=== PATIENT | male | born 1970 | race Caucasian/White ===

== ENCOUNTER 2022-06-19 16:17 | Inpatient (IN) | payer MEDICARE ==
[~2022-06-19 16:17] MED LIST: Iopamidol-370 76% 500 ML 1 ML ONE
[2022-06-19] MEDS ORDERED: Nitroglycerin 2% Ointment 1 INCH/1 GM Packet ONE (16:44)
[2022-06-19] MEDS ORDERED: Morphine 4 MG/ML VIAL ONE (16:44)
[2022-06-19 16:53] LABS: #Basophils 0.1 thou/uL (0.0-0.2); #Lymphocytes 0.5 thou/uL (1.20-3.40); #Monocytes 0.9 thou/uL (0.11-0.59); #Neutrophils 10.1 thou/uL (1.40-6.50); %Basophils 0.4 % (0.0-1.0); %Eosinophils 0.3 % (0.0-10.0); %Lymphocytes 4.6 % (21.0-51.0); %Monocytes 8.1 % (0.0-10.0); %Neutrophils 86.6 % (42.0-75.0); Hemoglobin 15.6 g/dL (14.0-18.0); Mean Corpuscular HGB CONC 33.9 g/dL (32.0-36.0); Mean Corpuscular Hemoglobin 31.8 pg (27.0-31.0); Mean Corpuscular Volume 93.8 fL (78.0-98.0); Mean Platelet Volume 9.9 fL (7.4-10.4); Platelet Count 182 thou/uL (130-400); RBC Distribution Width 12.3 % (11.5-14.5); Red Blood Cell (RBC) Count 4.91 mill/uL (4.70-6.10); White Blood Cell (WBC) Count 11.6 thou/uL (4.8-10.8)
[2022-06-19 17:01] LABS: PTT 56.6 sec (22.9-36.1); Prothrombin Time 12.8 sec (12.0-14.7)
[2022-06-19 17:26] LABS: ALT (SGPT) 11 U/L (8-55); AST (SGOT) 12 U/L (5-34); Alkaline Phosphatase 62 U/L (40-110); Anion Gap 13 mmol/L (10-20); BUN (Urea Nitrogen) 18 mg/dL (8.4-25.7); Bilirubin, Total 0.6 mg/dL (0.2-1.2); Calc. Creatinine Clearance 0 mL/min (70-130); Calcium 9.4 mg/dL (7.8-10.44); Carbon Dioxide 26 mmol/L (22-29); Chloride 99 mmol/L (98-107); Estimated GFR 74; Globulin 3.2 g/dL (2.4-3.5); Glucose 142 mg/dL (70-105); Lipase 9 U/L (8-78); Potassium 4.2 mmol/L (3.5-5.1); Protein, Total 7.2 g/dL (6.0-8.3); Sodium 134 mmol/L (136-145)
[2022-06-19] MEDS ORDERED: Ketorolac Tromethamine 30 MG/ML VIAL ONE (18:03)
[2022-06-19] MEDS ORDERED: Ondansetron PF 4 MG/2 ML Vial IVP PRN (19:05)
[2022-06-19] MEDS ORDERED: Ondansetron ODT 4 MG TAB PO PRN (19:05)
[2022-06-19] MEDS ORDERED: Nitroglycerin 0.4 MG TAB (25 Tab Bottle) SL PRN (19:08)
[2022-06-19 19:52] LABS: Troponin I 0.051 ng/mL (< 0.028)
[2022-06-19] MEDS ORDERED: Aspirin 325 mg Enteric Coated Tablet PO SCH (21:00)
[2022-06-19] MEDS ORDERED: cefTRIAXone\\ROCEPHIN 1 GM in Sodium Chloride 0.9% 100 ML IVPB SCH (21:00)
[2022-06-19] MEDS: Acetaminophen 325 MG TAB PO PRN (21:49)
[2022-06-19 22:13] VITALS: BMI 45.0
[2022-06-20 00:11] LABS: Troponin I 0.031 ng/mL (< 0.028)
[2022-06-20] MEDS: Ketorolac Tromethamine 30 MG/ML VIAL IVP PRN ×3 (04:48→20:57)
[2022-06-20] MEDS: Acetaminophen 325 MG TAB PO PRN ×3 (04:49→20:58)
[2022-06-20] MEDS ORDERED: Regadenoson 0.4 MG/5 ML SYRINGE ONE (09:45)
[2022-06-20] MEDS ORDERED: Piperacillin/Tazobactam 3.375 GM in Sodium Chloride 0.9% 100 ML IVPB SCH (10:00)
[2022-06-20] MEDS: Enoxaparin Sodium 40 MG/0.4 ML SYRINGE SC SCH (10:29)
[2022-06-20] MEDS: Piperacillin/Tazobactam 3.375 GM in Sodium Chloride 0.9% 100 ML IVPB SCH ×2 (14:35→20:59)
[2022-06-21] MEDS: Ketorolac Tromethamine 30 MG/ML VIAL IVP PRN (05:51)
[2022-06-21] MEDS: Piperacillin/Tazobactam 3.375 GM in Sodium Chloride 0.9% 100 ML IVPB SCH (05:52)
[2022-06-21 06:57] LABS: #Eosinphils 0.1 thou/uL (0.0-0.7); #Lymphocytes 1.3 thou/uL (1.20-3.40); #Monocytes 0.5 thou/uL (0.11-0.59); #Neutrophils 4.6 thou/uL (1.40-6.50); %Basophils 0.3 % (0.0-1.0); %Eosinophils 1.8 % (0.0-10.0); %Lymphocytes 19.1 % (21.0-51.0); %Monocytes 7.9 % (0.0-10.0); %Neutrophils 70.8 % (42.0-75.0); Hemoglobin 13.6 g/dL (14.0-18.0); Mean Corpuscular HGB CONC 32.4 g/dL (32.0-36.0); Mean Corpuscular Volume 95.8 fL (78.0-98.0); Mean Platelet Volume 9.4 fL (7.4-10.4); Platelet Count 161 thou/uL (130-400); RBC Distribution Width 12.2 % (11.5-14.5); White Blood Cell (WBC) Count 6.5 thou/uL (4.8-10.8)
[2022-06-21 07:17] LABS: Anion Gap 11 mmol/L (10-20); BUN (Urea Nitrogen) 17 mg/dL (8.4-25.7); Calc. Creatinine Clearance 163 mL/min (70-130); Calcium 8.7 mg/dL (7.8-10.44); Carbon Dioxide 25 mmol/L (22-29); Chloride 105 mmol/L (98-107); Estimated GFR 92; Glucose 95 mg/dL (70-105); Potassium 4.1 mmol/L (3.5-5.1); Sodium 137 mmol/L (136-145)
[2022-06-21] MEDS: Enoxaparin Sodium 40 MG/0.4 ML SYRINGE SC SCH (08:37)
[2022-06-21 11:42] VITALS: BP 171/97; TEMP 98.5
== END 2022-06-21 12:39 | disposition home or self-care (01) | DRG 603 ==
LOC: ERS 16:17 → 2SW 18:36 → OBSVTOIN 06-20 08:40
PROVIDERS: ADMIT Hospitalist; ATTEND Hospitalist
DX: L03.116 Cellulitis of left lower limb (principal); Z68.42 Body mass index [BMI] 45.0-49.9, adult; R07.9 Chest pain, unspecified; Z20.822 Contact with and (suspected) exposure to COVID-19; K21.9 Gastro-esophageal reflux disease without esophagitis; Z96.651 Presence of right artificial knee joint; F17.210 Nicotine dependence, cigarettes, uncomplicated; I87.2 Venous insufficiency (chronic) (peripheral); E66.01 Morbid (severe) obesity due to excess calories; I25.10 Atherosclerotic heart disease of native coronary artery without angina pectoris; J44.9 Chronic obstructive pulmonary disease, unspecified; G62.9 Polyneuropathy, unspecified; I25.2 Old myocardial infarction; Z79.899 Other long term (current) drug therapy
CPT/HCPCS: 36415; 71045; 71275; 74174; 78452; 80048; 80053; 83690; 83880; 84484; 85025; 85379; 85610; 85730; 93005; 93017; 93306; 93970; 94760; 96374; 96375; A9500; G0378; J0696; J1650; J1885; J2270; J2543; J2785; J3490; Q9967; U0003; U0005

== ENCOUNTER 2023-04-25 13:20 | Observation (INO) | payer MEDICARE, MEDICAID ==
[2023-04-25 14:20] LABS: #Eosinphils 0.1 thou/uL (0.0-0.7); #Monocytes 0.4 thou/uL (0.11-0.59); #Neutrophils 6.5 thou/uL (1.40-6.50); %Basophils 0.5 % (0.0-1.0); %Eosinophils 1.1 % (0.0-10.0); %Lymphocytes 12.2 % (21.0-51.0); %Monocytes 5.2 % (0.0-10.0); %Neutrophils 80.5 % (42.0-75.0); Hemoglobin 15.7 g/dL (14.0-18.0); Mean Corpuscular HGB CONC 33.5 g/dL (32.0-36.0); Mean Corpuscular Hemoglobin 30.9 pg (27.0-31.0); Mean Corpuscular Volume 92.3 fl (78.0-98.0); Platelet Count 194 10x3/uL (130-400); RBC Distribution Width 13.6 % (11.5-14.5); Red Blood Cell (RBC) Count 5.08 mill/uL (4.70-6.10); White Blood Cell (WBC) Count 8.1 10x3/uL (4.8-10.8)
[2023-04-25 14:48] LABS: ALT (SGPT) 14 U/L (8-55); AST (SGOT) 14 U/L (5-34); Albumin 4.1 g/dL (3.5-5.0); Alkaline Phosphatase 60 U/L (40-110); Anion Gap 12 mmol/L (10-20); BUN (Urea Nitrogen) 17 mg/dL (8.4-25.7); Bilirubin, Total 0.4 mg/dL (0.2-1.2); Calc. Creatinine Clearance 0 mL/min (70-130); Calcium 9.3 mg/dL (7.8-10.44); Carbon Dioxide 24 mmol/L (22-29); Chloride 103 mmol/L (98-107); Estimated GFR 85; Globulin 2.7 g/dL (2.4-3.5); Glucose 118 mg/dL (70-105); Potassium 4.5 mmol/L (3.5-5.1); Protein, Total 6.8 g/dL (6.0-8.3); Sodium 134 mmol/L (136-145)
[2023-04-25 15:09] LABS: CKMB 4.4 ng/mL (0-6.6)
[2023-04-25] MEDS ORDERED: Albuterol 2.5 MG/0.5 ML NEB ONE (17:41)
[2023-04-25] MEDS ORDERED: Ipratropium/Albuterol 3 ML NEB ONE (17:44)
[2023-04-25 18:07] LABS: CKMB 4.1 ng/mL (0-6.6)
[2023-04-25] MEDS ORDERED: Aspirin Chewable 81 MG TAB ONE (18:25)
[2023-04-25] MEDS ORDERED: methylPREDNISolone Sod Succ/PF 125 MG/2 ML VIAL ONE (18:25)
[2023-04-25] MEDS ORDERED: cefTRIAXone (ROCEPHIN) 2 GM VIAL ONE (18:25)
[2023-04-25] MEDS ORDERED: Ondansetron PF 4 MG/2 ML Vial IVP PRN (19:15)
[2023-04-25] MEDS ORDERED: Ondansetron ODT 4 MG TAB PO PRN (19:15)
[2023-04-25] MEDS ORDERED: Labetalol HCl 100 MG/20 ML VIAL SLOW IVP SCH (19:30)
[2023-04-25] MEDS ORDERED: Azithromycin 500 MG VIAL ONE (19:33)
[2023-04-25] MEDS ORDERED: Nitroglycerin 2% Ointment 1 INCH/1 GM Packet TOP SCH (20:30)
[2023-04-25 20:32] LABS: Hemoglobin A1c 5.3 % (4.0-6.0)
[2023-04-25] MEDS ORDERED: Nitroglycerin 0.4 MG TAB (25 Tab Bottle) SL PRN (20:35)
[2023-04-25 20:42] VITALS: BMI 54.8
[2023-04-25 20:45] LABS: Troponin I 0.047 ng/mL (< 0.028)
[2023-04-25] MEDS: Azithromycin 500 MG in Sodium Chloride 0.9% 250 ML 250 ML IVPB SCH (21:03)
[2023-04-25] MEDS: Famotidine 20 MG TAB PO SCH (21:03)
[2023-04-25] MEDS: Acetaminophen 325 MG TAB PO PRN (21:03)
[2023-04-25] MEDS: guaiFENesin/DM ER PO SCH (21:03)
[2023-04-25] MEDS: Nitroglycerin 2% Ointment 1 INCH/1 GM Packet TOP SCH (21:04)
[2023-04-25] MEDS ORDERED: Nicotine 14 MG PATCH TD SCH (21:30)
[2023-04-25] MEDS ORDERED: Ipratropium/Albuterol 3 ML NEB NEB SCH (21:30)
[2023-04-25] MEDS: methylPREDNISolone Sod Succ 40 MG VIAL IVP SCH (23:33)
[2023-04-26] MEDS ORDERED: cloNIDine 0.1 MG TAB PO PRN (00:21)
[2023-04-26] MEDS ORDERED: Ketorolac Tromethamine 30 MG/ML VIAL IVP SCH (03:30)
[2023-04-26 04:51] LABS: #Monocytes 0.1 thou/uL (0.11-0.59); #Neutrophils 6.3 thou/uL (1.40-6.50); %Basophils 0.1 % (0.0-1.0); %Eosinophils 0.1 % (0.0-10.0); %Lymphocytes 6.4 % (21.0-51.0); %Monocytes 1.2 % (0.0-10.0); %Neutrophils 91.5 % (42.0-75.0); Hemoglobin 15.1 g/dL (14.0-18.0); Mean Corpuscular HGB CONC 32.5 g/dL (32.0-36.0); Mean Corpuscular Hemoglobin 30.6 pg (27.0-31.0); Mean Corpuscular Volume 94.3 fl (78.0-98.0); Mean Platelet Volume 12.1 fL (7.4-10.4); Platelet Count 205 10x3/uL (130-400); RBC Distribution Width 13.6 % (11.5-14.5); Red Blood Cell (RBC) Count 4.93 mill/uL (4.70-6.10); White Blood Cell (WBC) Count 6.9 10x3/uL (4.8-10.8)
[2023-04-26 05:09] LABS: Anion Gap 13 mmol/L (10-20); BUN (Urea Nitrogen) 17 mg/dL (8.4-25.7); Calc. Creatinine Clearance 219 mL/min (70-130); Calcium 9.2 mg/dL (7.8-10.44); Carbon Dioxide 20 mmol/L (22-29); Cardiac Risk 3.9 (Less than 4.5); Chloride 105 mmol/L (98-107); Cholesterol 231 mg/dl (< 200 Desired); Estimated GFR 104; Glucose 148 mg/dL (70-105); HDL Cholesterol 59 mg/dL (>60 Neg Risk); LDL Cholesterol, Calculated 160 mg/dL; Magnesium 2.2 mg/dL (1.6-2.6); Potassium 4.7 mmol/L (3.5-5.1); Sodium 133 mmol/L (136-145); Triglycerides 60 mg/dL (Less than 150)
[2023-04-26 05:21] LABS: Troponin I 0.038 ng/mL (< 0.028)
[2023-04-26] MEDS: Nitroglycerin 2% Ointment 1 INCH/1 GM Packet TOP SCH ×4 (05:25→21:08)
[2023-04-26] MEDS: methylPREDNISolone Sod Succ 40 MG VIAL IVP SCH ×4 (05:25→23:16)
[2023-04-26] MEDS: Acetaminophen 325 MG TAB PO PRN ×4 (05:28→21:04)
[2023-04-26] MEDS: Ipratropium/Albuterol 3 ML NEB NEB SCH ×4 (08:07→18:44)
[2023-04-26] MEDS: Famotidine 20 MG TAB PO SCH (08:25)
[2023-04-26] MEDS: guaiFENesin/DM ER PO SCH ×2 (08:25→21:08)
[2023-04-26] MEDS: Aspirin Chewable 81 MG TAB PO SCH (08:25)
[2023-04-26] MEDS ORDERED: Ipratropium/Albuterol 3 ML NEB NEB PRN (14:25)
[2023-04-26] MEDS ORDERED: Amlodipine 5 MG TAB PO SCH (14:45)
[2023-04-26] MEDS: Diclofenac 1% 100 GM GEL TP SCH ×2 (15:20→21:09)
[2023-04-26 16:29] LABS: SARS-CoV-2 NAA Rapid Test Not Detected (NotDetected)
[2023-04-26] MEDS: Ketorolac Tromethamine 30 MG/ML VIAL IVP SCH ×2 (17:43→23:13)
[2023-04-26] MEDS: Mometasone 100 MCG/Formoterol 5 MCG 120 PUFF INHALER INH SCH (18:46)
[2023-04-26] MEDS: Azithromycin 500 MG in Sodium Chloride 0.9% 250 ML 250 ML IVPB SCH (21:07)
[2023-04-27] MEDS ORDERED: Labetalol HCl 100 MG/20 ML VIAL SLOW IVP SCH (00:30)
[2023-04-27] MEDS: Acetaminophen 325 MG TAB PO PRN (03:43)
[2023-04-27 05:29] LABS: Anion Gap 14 mmol/L (10-20); BUN (Urea Nitrogen) 26 mg/dL (8.4-25.7); Calc. Creatinine Clearance 180 mL/min (70-130); Calcium 9.3 mg/dL (7.8-10.44); Carbon Dioxide 22 mmol/L (22-29); Chloride 103 mmol/L (98-107); Estimated GFR 86; Glucose 216 mg/dL (70-105); Potassium 4.5 mmol/L (3.5-5.1); Sodium 134 mmol/L (136-145)
[2023-04-27] MEDS: methylPREDNISolone Sod Succ 40 MG VIAL IVP SCH ×2 (05:36→11:25)
[2023-04-27] MEDS: Mometasone 100 MCG/Formoterol 5 MCG 120 PUFF INHALER INH SCH (07:39)
[2023-04-27] MEDS ORDERED: hydrALAZINE 20 MG/ML VIAL SLOW IVP PRN (07:53)
[2023-04-27] MEDS: guaiFENesin/DM ER PO SCH (08:49)
[2023-04-27] MEDS: Aspirin Chewable 81 MG TAB PO SCH (08:49)
[2023-04-27] MEDS: Diclofenac 1% 100 GM GEL TP SCH ×2 (08:50→14:31)
[2023-04-27] MEDS ORDERED: Nicotine 21 MG PATCH TD SCH (08:52)
[2023-04-27] MEDS ORDERED: Valsartan 80 MG TAB PO SCH (09:00)
[2023-04-27] MEDS ORDERED: Nicotine 14 MG PATCH TD SCH (09:00)
[2023-04-27] MEDS ORDERED: Amlodipine 5 MG TAB PO SCH (09:00)
[2023-04-27] MEDS ORDERED: Acetaminophen 500 MG TAB PO PRN ×2 (09:50)
[2023-04-27] MEDS ORDERED: diphenhydrAMINE 25 MG CAP PO PRN (09:50)
[2023-04-27] MEDS ORDERED: Moisturizing Cream (Eucerin) 113 GM JAR TOP PRN (09:50)
[2023-04-27] MEDS ORDERED: Glucagon 1 MG/ML KIT IM PRN (09:50)
[2023-04-27] MEDS ORDERED: Sodium Chloride 0.65% Nasal 44 ML BOT EA NARE PRN (09:50)
[2023-04-27] MEDS ORDERED: Dextrose 5% in Water 1,000 ML IV PRN (09:50)
[2023-04-27] MEDS ORDERED: Dextrose 50% Abboject 50 ML SYRINGE SLOW IVP PRN (09:50)
[2023-04-27] MEDS ORDERED: HumaLOG 300 UNITS/3 ML VIAL SC PRN ×2 (09:50)
[2023-04-27] MEDS ORDERED: Senokot S 8.6-50 MG TAB PO PRN (09:50)
[2023-04-27 11:22] VITALS: TEMP 97.9
[2023-04-27] MEDS ORDERED: hydrALAZINE 25 MG TAB PO SCH (14:15)
[2023-04-27 15:30] VITALS: BP 172/92
== END 2023-04-27 15:58 | disposition home or self-care (01) ==
LOC: ERS 13:20 → 2NO 18:47
PROVIDERS: ADMIT Internal Medicine; ATTEND Family Medicine
DX: R07.81 Pleurodynia (principal); R77.8 Other specified abnormalities of plasma proteins; J44.1 Chronic obstructive pulmonary disease with (acute) exacerbation; I10 Essential (primary) hypertension; I16.0 Hypertensive urgency; J96.01 Acute respiratory failure with hypoxia; I25.10 Atherosclerotic heart disease of native coronary artery without angina pectoris; I25.2 Old myocardial infarction; F41.8 Other specified anxiety disorders; F17.210 Nicotine dependence, cigarettes, uncomplicated; E66.01 Morbid (severe) obesity due to excess calories; Z68.43 Body mass index [BMI] 50.0-59.9, adult; Z96.651 Presence of right artificial knee joint; Z79.82 Long term (current) use of aspirin; Z79.899 Other long term (current) drug therapy
CPT/HCPCS: 0241U; 71045; 80048 ×2; 80053; 80061; 82553; 82962; 83036; 83735; 83880; 84443; 84484 ×3; 85025 ×2; 93005 ×2; 93306; 94640 ×5; 94664; 94760; 96365; 96367; 96375; 99285; J0456 ×2; 36415; 36416; 93010; 96372; 96376; G0378; J0696; J1650; J1885; J2920; J2930; J7050; J7611; J7620

== ENCOUNTER 2023-05-24 19:09 | Observation (INO) | payer OTHER, MEDICAID ==
[2023-05-24 21:38] LABS: #Eosinphils 0.2 thou/uL (0.0-0.7); #Monocytes 0.5 thou/uL (0.11-0.59); #Neutrophils 5.5 thou/uL (1.40-6.50); %Basophils 0.4 % (0.0-1.0); %Eosinophils 2.1 % (0.0-10.0); %Lymphocytes 17.5 % (21.0-51.0); %Monocytes 7.1 % (0.0-10.0); %Neutrophils 71.9 % (42.0-75.0); Hemoglobin 14.5 g/dL (14.0-18.0); Mean Corpuscular HGB CONC 32.4 g/dL (32.0-36.0); Mean Corpuscular Hemoglobin 31.6 pg (27.0-31.0); Mean Corpuscular Volume 97.4 fl (78.0-98.0); Mean Platelet Volume 11.9 fL (7.4-10.4); Platelet Count 168 10x3/uL (130-400); RBC Distribution Width 14.3 % (11.5-14.5); Red Blood Cell (RBC) Count 4.59 mill/uL (4.70-6.10); White Blood Cell (WBC) Count 7.6 10x3/uL (4.8-10.8)
[2023-05-24 21:51] LABS: INR-International Normal Ratio 0.8; PTT 35.2 sec (22.9-36.1); Prothrombin Time 11.3 sec (12.0-14.7)
[2023-05-24 21:56] LABS: Acetaminophen Less than 10 mcg/mL (10.0-30.0); Alcohol Less than 10.0 mg/dL (Less than 10); Lipase 44 U/L (8-78); Magnesium 2.2 mg/dL (1.6-2.6); Salicylate Less than 8.0 mg/dL (15.0-30.0)
[2023-05-24 22:02] LABS: ALT (SGPT) 35 U/L (8-55); AST (SGOT) 22 U/L (5-34); Albumin 4.1 g/dL (3.5-5.0); Alkaline Phosphatase 76 U/L (40-110); Anion Gap 14 mmol/L (10-20); BUN (Urea Nitrogen) 19 mg/dL (8.4-25.7); Bilirubin, Total 0.2 mg/dL (0.2-1.2); Calc. Creatinine Clearance 0 mL/min (70-130); Calcium 9.9 mg/dL (7.8-10.44); Carbon Dioxide 27 mmol/L (22-29); Chloride 101 mmol/L (98-107); Estimated GFR 92; Globulin 2.7 g/dL (2.4-3.5); Glucose 120 mg/dL (70-105); Potassium 4.3 mmol/L (3.5-5.1); Protein, Total 6.8 g/dL (6.0-8.3); Sodium 138 mmol/L (136-145)
[2023-05-24 22:17] LABS: CKMB 2.7 ng/mL (0-6.6)
[2023-05-24] MEDS ORDERED: Morphine 4 MG/ML VIAL ONE (22:21)
[2023-05-24 22:32] LABS: Bacteria/HPF None Seen HPF (None Seen); Bilirubin Negative (Negative); Blood, Urine Negative (Negative); CAUTI Indications for Culture Dysuria,urgency,freq; Clarity Clear (Clear); Glucose, Urine (Dipstick) Normal (Negative); Ketone, Urine Negative (Negative); Leukocyte Negative Leu/uL (Negative); Nitrite Negative (Negative); Protein, Urine (Dipstick) Negative (Neg-Trace); RBC/HPF 0-3 HPF (0-3); Renal Epithelial 0-3 HPF (None Seen); Specific Gravity, Urine 1.021 (1.002-1.036); Squamous Epithelial 0-3 HPF (0-3); Urobilinogen Normal mg/dL (Less than 2); WBC/HPF 0-3 HPF (0-3); pH, Urine 6.5 (5.0-9.0)
[2023-05-24 22:35] LABS: Cocaine Metabolite Screen Not Detected (NotDetected); Methamphetamine Not Detected (NotDetected); Opiate Screen Not Detected (NotDetected); Phencyclidine (PCP) Not Detected (NotDetected); THC/Cannabinoid Screen Not Detected (NotDetected)
[2023-05-24 22:36] LABS: Amphetamine Not Detected (NotDetected); Barbiturates Screen Not Detected (NotDetected); Benzodiazepine Screen Not Detected (NotDetected); Methadone Not Detected (NotDetected); Oxycodone Screen Not Detected (NotDetected); Tricyclic Screen Not Detected (NotDetected)
[2023-05-24 22:42] LABS: Urine Culture Reflex No No
[2023-05-24] MEDS ORDERED: Ipratropium/Albuterol 3 ML NEB EZPAP PRN (23:25)
[2023-05-24] MEDS ORDERED: Ondansetron PF 4 MG/2 ML Vial IVP PRN (23:45)
[2023-05-25 00:45] VITALS: BMI 52.4
[2023-05-25 01:09] LABS: Troponin I 0.034 ng/mL (< 0.028)
[2023-05-25] MEDS ORDERED: Ipratropium/Albuterol 3 ML NEB ONE ×2 (02:28→11:58)
[2023-05-25] MEDS: Ipratropium/Albuterol 3 ML NEB NEB SCH ×5 (02:31→23:09)
[2023-05-25 03:59] LABS: #Eosinphils 0.2 thou/uL (0.0-0.7); #Monocytes 0.6 thou/uL (0.11-0.59); #Neutrophils 4.9 thou/uL (1.40-6.50); %Basophils 0.4 % (0.0-1.0); %Lymphocytes 21.8 % (21.0-51.0); %Monocytes 7.9 % (0.0-10.0); %Neutrophils 66.6 % (42.0-75.0); Hemoglobin 14.8 g/dL (14.0-18.0); Mean Corpuscular Hemoglobin 30.8 pg (27.0-31.0); Mean Corpuscular Volume 96.5 fl (78.0-98.0); Mean Platelet Volume 11.4 fL (7.4-10.4); Platelet Count 167 10x3/uL (130-400); RBC Distribution Width 14.2 % (11.5-14.5); White Blood Cell (WBC) Count 7.4 10x3/uL (4.8-10.8)
[2023-05-25 04:23] LABS: Anion Gap 15 mmol/L (10-20); BUN (Urea Nitrogen) 17 mg/dL (8.4-25.7); Calc. Creatinine Clearance 211 mL/min (70-130); Calcium 9.7 mg/dL (7.8-10.44); Carbon Dioxide 24 mmol/L (22-29); Chloride 103 mmol/L (98-107); Estimated GFR 103; Glucose 123 mg/dL (70-105); Potassium 4.1 mmol/L (3.5-5.1); Sodium 138 mmol/L (136-145)
[2023-05-25 04:27] LABS: Troponin I 0.032 ng/mL (< 0.028)
[2023-05-25] MEDS ORDERED: Acetaminophen 325 MG TAB ONE (04:41)
[2023-05-25] MEDS: Acetaminophen 325 MG TAB PO PRN (04:43)
[2023-05-25] MEDS ORDERED: levETIRAcetam in NS 500 MG in Premix Bag 1 BAG IVPB SCH (09:00)
[2023-05-25] MEDS ORDERED: levETIRAcetam 500 MG/5 ML VIAL ONE (09:11)
[2023-05-25] MEDS: levETIRAcetam 500 MG/5 ML VIAL SLOW IVP SCH ×2 (09:22→21:07)
[2023-05-25] MEDS ORDERED: Acetaminophen/Codeine 30-300mg Tablet ONE (10:51)
[2023-05-25] MEDS: Acetaminophen/Codeine 30-300mg Tablet PO PRN ×2 (10:54→19:37)
[2023-05-25] MEDS: hydrALAZINE 25 MG TAB PO SCH ×2 (14:56→21:22)
[2023-05-26] MEDS: Acetaminophen/Codeine 30-300mg Tablet PO PRN ×3 (00:02→09:54)
[2023-05-26] MEDS: Acetaminophen 325 MG TAB PO PRN (00:05)
[2023-05-26 06:30] LABS: #Eosinphils 0.1 thou/uL (0.0-0.7); #Monocytes 0.6 thou/uL (0.11-0.59); #Neutrophils 4.6 thou/uL (1.40-6.50); %Basophils 0.5 % (0.0-1.0); %Lymphocytes 19.2 % (21.0-51.0); %Monocytes 8.7 % (0.0-10.0); %Neutrophils 68.5 % (42.0-75.0); Hemoglobin 14.5 g/dL (14.0-18.0); Mean Corpuscular HGB CONC 31.7 g/dL (32.0-36.0); Mean Corpuscular Hemoglobin 31.2 pg (27.0-31.0); Mean Corpuscular Volume 98.5 fl (78.0-98.0); Mean Platelet Volume 11.4 fL (7.4-10.4); Platelet Count 162 10x3/uL (130-400); RBC Distribution Width 14.4 % (11.5-14.5); Red Blood Cell (RBC) Count 4.65 mill/uL (4.70-6.10); White Blood Cell (WBC) Count 6.7 10x3/uL (4.8-10.8)
[2023-05-26 06:57] LABS: Anion Gap 17 mmol/L (10-20); BUN (Urea Nitrogen) 17 mg/dL (8.4-25.7); Calc. Creatinine Clearance 179 mL/min (70-130); Calcium 8.9 mg/dL (7.8-10.44); Carbon Dioxide 24 mmol/L (22-29); Chloride 102 mmol/L (98-107); Estimated GFR 86; Glucose 129 mg/dL (70-105); Potassium 4.6 mmol/L (3.5-5.1); Sodium 138 mmol/L (136-145)
[2023-05-26] MEDS: Ipratropium/Albuterol 3 ML NEB NEB SCH ×2 (07:46→13:33)
[2023-05-26] MEDS ORDERED: Valsartan 80 MG TAB PO SCH (09:00)
[2023-05-26] MEDS ORDERED: Non-Formulary Item 1 EACH (Tiotropium Bromide 4 GM Inhaler) IH SCH (09:00)
[2023-05-26] MEDS ORDERED: Amlodipine 5 MG TAB PO SCH (09:00)
[2023-05-26] MEDS: hydrALAZINE 25 MG TAB PO SCH ×2 (09:53→15:31)
[2023-05-26] MEDS: levETIRAcetam 500 MG/5 ML VIAL SLOW IVP SCH (09:54)
[2023-05-26 11:53] VITALS: BP 113/57; TEMP 98.2
== END 2023-05-26 15:47 | disposition home or self-care (01) ==
LOC: ERS 19:09 → ERHOLD 23:13 → 2SE 05-25 17:26
PROVIDERS: ADMIT Internal Medicine; ATTEND Hospitalist
DX: R41.82 Altered mental status, unspecified (principal); J44.9 Chronic obstructive pulmonary disease, unspecified; I10 Essential (primary) hypertension; F41.8 Other specified anxiety disorders; I25.10 Atherosclerotic heart disease of native coronary artery without angina pectoris; F17.210 Nicotine dependence, cigarettes, uncomplicated; G93.40 Encephalopathy, unspecified; R77.8 Other specified abnormalities of plasma proteins; E66.01 Morbid (severe) obesity due to excess calories; Z68.43 Body mass index [BMI] 50.0-59.9, adult; Z79.82 Long term (current) use of aspirin; Z79.899 Other long term (current) drug therapy; Z96.651 Presence of right artificial knee joint
CPT/HCPCS: 70450 ×2; 71046; 73030; 80048 ×2; 80053; 80306; 80307; 81001; 82553; 83605; 83690; 83735; 83880; 84484 ×3; 85025 ×3; 85610; 85730; 93005; 94640 ×3; 95712; 95819; 95957; 96374; 96376 ×2; 99285; G0378 ×4; J1953 ×2; 36415; J2270; J7620

== ENCOUNTER 2023-08-11 18:19 | Inpatient (IN) | payer OTHER, MEDICAID ==
[2023-08-11] MEDS ORDERED: Ipratropium/Albuterol 3 ML NEB ONE (18:49)
[2023-08-11] MEDS ORDERED: Albuterol 2.5 MG/0.5 ML NEB ONE (18:49)
[2023-08-11] MEDS ORDERED: Magnesium 2 GM/50 ML BAG (IN WATER) ONE (18:53)
[2023-08-11] MEDS ORDERED: Dexamethasone 4 mg/ml Vial ONE (18:53)
[2023-08-11 19:01] LABS: #Eosinphils 0.1 thou/uL (0.0-0.7); #Monocytes 0.6 thou/uL (0.11-0.59); #Neutrophils 6.3 thou/uL (1.40-6.50); %Basophils 0.5 % (0.0-1.0); %Eosinophils 1.5 % (0.0-10.0); %Lymphocytes 10.9 % (21.0-51.0); %Monocytes 7.8 % (0.0-10.0); Hematocrit 42.5 % (42.0-52.0); Hemoglobin 13.6 g/dL (14.0-18.0); Mean Corpuscular Hemoglobin 30.7 pg (27.0-31.0); Mean Corpuscular Volume 95.9 fl (78.0-98.0); Mean Platelet Volume 10.9 fL (7.4-10.4); Platelet Count 225 10x3/uL (130-400); RBC Distribution Width 13.6 % (11.5-14.5); Red Blood Cell (RBC) Count 4.43 mill/uL (4.70-6.10)
[2023-08-11 19:03] LABS: Actual Bicarbonate (HCO3a) 28.6 mEq/L (22-28); Analyzer IN Cardio ER; Base Excess (BEa) 2.1 mEq/L (-2.0 to +3.0); CO2 Tension 51.8 mmHg (35.0-45.0); Calcium, Ionized (arterial) 1.22 mmol/L (1.12-1.30); Hematocrit-ABG 42 % (42.0-52.0); Hemoglobin (Hb) 14.3 g/dL (14.0-18.0); Potassium - ABG Lab 4.05 mmol/L (3.70-5.30)
[2023-08-11 19:06] LABS: O2 Tension (PaO2), arterial 54.1 mmHg (80.0-100.0); Puncture Site RRA
[2023-08-11 19:30] LABS: Troponin I 0.028 ng/mL (< 0.028)
[2023-08-11 19:31] LABS: ALT (SGPT) 35 U/L (8-55); AST (SGOT) 24 U/L (5-34); Albumin 4.2 g/dL (3.5-5.0); Alkaline Phosphatase 65 U/L (40-110); Anion Gap 15 mmol/L (10-20); BUN (Urea Nitrogen) 15 mg/dL (8.4-25.7); Bilirubin, Total 0.5 mg/dL (0.2-1.2); Calc. Creatinine Clearance 0 mL/min (70-130); Calcium 9.5 mg/dL (7.8-10.44); Carbon Dioxide 26 mmol/L (22-29); Chloride 100 mmol/L (98-107); Estimated GFR 86; Globulin 2.9 g/dL (2.4-3.5); Glucose 113 mg/dL (70-105); Potassium 3.9 mmol/L (3.5-5.1); Protein, Total 7.1 g/dL (6.0-8.3); Sodium 137 mmol/L (136-145)
[2023-08-11] MEDS ORDERED: LevoFLOXacin 750 mg/D5W 150 ml Premix Bag ONE ×2 (20:30→21:56)
[2023-08-11] MEDS ORDERED: Famotidine/PF 20 mg/2ml Vial SLOW IVP SCH (20:30)
[2023-08-11] MEDS ORDERED: Ondansetron PF 4 MG/2 ML Vial IVP PRN (20:42)
[2023-08-11] MEDS ORDERED: Acetaminophen 650 MG Suppository PR PRN (20:42)
[2023-08-11] MEDS ORDERED: Ondansetron ODT 4 MG TAB PO PRN (20:42)
[2023-08-11] MEDS ORDERED: Ipratropium/Albuterol 3 ML NEB NEB PRN ×2 (20:50→21:45)
[2023-08-11 21:04] LABS: SARS-CoV-2 NAA Rapid Test Not Detected (NotDetected)
[2023-08-11] MEDS ORDERED: Benzonatate 100 MG CAP PO PRN (21:46)
[2023-08-11] MEDS ORDERED: Electrolyte Replacement Protocol FS SCH (21:48)
[2023-08-11] MEDS ORDERED: Famotidine/PF 20 mg/2ml Vial ONE (21:56)
[2023-08-11 23:04] LABS: Actual Bicarbonate (HCO3a) 17.2 mEq/L (22-28); Analyzer IN Cardio ER; Base Excess (BEa) -15.6 mEq/L (-2.0 to +3.0); Calcium, Ionized (arterial) 1.27 mmol/L (1.12-1.30); Carboxyhemoglobin (COHb) 1.2 gm% (0.0-3.0); Hematocrit-ABG 44 % (42.0-52.0); Hemoglobin (Hb) 15.1 g/dL (14.0-18.0); O2 Tension (PaO2), arterial 108.2 mmHg (80.0-100.0); Potassium - ABG Lab 4.07 mmol/L (3.70-5.30)
[2023-08-11 23:09] LABS: CO2 Tension 74.2 mmHg (35.0-45.0); Puncture Site LRA; pH, Arterial 6.984 (7.35-7.45)
[2023-08-11] MEDS ORDERED: Fentanyl CADD 100 ML IV SCH (23:30)
[2023-08-11] MEDS ORDERED: Ventilator Sedation Protocol FS SCH (23:37)
[2023-08-11] MEDS ORDERED: Morphine 2 MG/ML VIAL SLOW IVP PRN (23:45)
[2023-08-11] MEDS ORDERED: Propofol BOLUS 1,000 MG/100 ML VIAL IV PRN (23:45)
[2023-08-11] MEDS ORDERED: Fentanyl BOLUS 250 ML IVPB PRN (23:45)
[2023-08-11] MEDS ORDERED: DISCONTINUE PREVIOUS NARCOTIC PAIN MEDICATIONS AND BENZODIAZEPINES FS SCH (23:45)
[2023-08-12 00:10] LABS: Bacteria/HPF None Seen HPF (None Seen); Bilirubin Negative (Negative); Blood, Urine Trace (Negative); CAUTI Indications for Culture Alt mental st,lethar; Clarity Clear (Clear); Glucose, Urine (Dipstick) Normal (Negative); Ketone, Urine 10 mg/dL (Negative); Leukocyte Negative Leu/uL (Negative); Nitrite Negative (Negative); Protein, Urine (Dipstick) 70 mg/dL (Neg-Trace); Specific Gravity, Urine 1.024 (1.002-1.036); Squamous Epithelial None Seen HPF (0-3); Urobilinogen Normal mg/dL (Less than 2); WBC/HPF 0-3 HPF (0-3); pH, Urine 5.5 (5.0-9.0)
[2023-08-12 00:12] LABS: Urine Culture Reflex No No
[2023-08-12] MEDS ORDERED: Furosemide 20 MG/2 ML VIAL ONE (00:21)
[2023-08-12 00:38] LABS: Actual Bicarbonate (HCO3a) 22.8 mEq/L (22-28); Analyzer IN Cardio ER; CO2 Tension 39.3 mmHg (35.0-45.0); Calcium, Ionized (arterial) 1.17 mmol/L (1.12-1.30); Carboxyhemoglobin (COHb) 1.2 gm% (0.0-3.0); Hematocrit-ABG 45 % (42.0-52.0); Hemoglobin (Hb) 15.2 g/dL (14.0-18.0); O2 Tension (PaO2), arterial 80.6 mmHg (80.0-100.0); Potassium - ABG Lab 4.41 mmol/L (3.70-5.30); pH, Arterial 7.382 (7.35-7.45)
[2023-08-12 00:41] LABS: ALV-art Gradient 191.125 mmHg (0-20); Puncture Site LRA
[2023-08-12] MEDS ORDERED: Propofol 1,000 MG/100 ML VIAL IV ONE (00:42)
[2023-08-12] MEDS: Ipratropium/Albuterol 3 ML NEB NEB SCH ×7 (01:31→21:42)
[2023-08-12] MEDS ORDERED: hydrALAZINE 20 MG/ML VIAL SLOW IVP SCH (02:15)
[2023-08-12 03:45] LABS: #Monocytes 0.2 thou/uL (0.11-0.59); #Neutrophils 6.4 thou/uL (1.40-6.50); %Basophils 0.1 % (0.0-1.0); %Lymphocytes 4.3 % (21.0-51.0); %Monocytes 2.2 % (0.0-10.0); %Neutrophils 93.1 % (42.0-75.0); Hematocrit 42.4 % (42.0-52.0); Hemoglobin 13.9 g/dL (14.0-18.0); Mean Corpuscular HGB CONC 32.8 g/dL (32.0-36.0); Mean Corpuscular Hemoglobin 30.5 pg (27.0-31.0); Mean Platelet Volume 11.1 fL (7.4-10.4); Platelet Count 211 10x3/uL (130-400); RBC Distribution Width 13.6 % (11.5-14.5); Red Blood Cell (RBC) Count 4.56 mill/uL (4.70-6.10); White Blood Cell (WBC) Count 6.8 10x3/uL (4.8-10.8)
[2023-08-12 04:09] LABS: Anion Gap 18 mmol/L (10-20); BUN (Urea Nitrogen) 14 mg/dL (8.4-25.7); Calc. Creatinine Clearance 180 mL/min (70-130); Calcium 9.3 mg/dL (7.8-10.44); Carbon Dioxide 23 mmol/L (22-29); Chloride 99 mmol/L (98-107); Estimated GFR 86; Glucose 157 mg/dL (70-105); Magnesium 2.3 mg/dL (1.6-2.6); Potassium 3.8 mmol/L (3.5-5.1); Sodium 136 mmol/L (136-145)
[2023-08-12] MEDS: Propofol 1,000 MG/100 ML VIAL IV PRN ×7 (05:15→22:03)
[2023-08-12] MEDS ORDERED: Labetalol HCl 100 MG/20 ML VIAL SLOW IVP SCH (05:15)
[2023-08-12] MEDS: Budesonide 0.5 MG/2 ML NEB NEB SCH ×2 (06:58→19:09)
[2023-08-12] MEDS: Famotidine/PF 20 mg/2ml Vial SLOW IVP SCH ×2 (08:57→20:14)
[2023-08-12] MEDS ORDERED: methylPREDNISolone Sod Succ/PF 125 MG/2 ML VIAL IVP SCH (09:00)
[2023-08-12] MEDS ORDERED: guaiFENesin ER 600 MG TAB PO SCH (09:00)
[2023-08-12] MEDS: Sodium Chloride 0.45% 1,000 ML IV SCH (10:49)
[2023-08-12] MEDS: methylPREDNISolone Sod Succ 40 MG VIAL IVP SCH ×3 (12:26→23:42)
[2023-08-12 13:42] LABS: Actual Bicarbonate (HCO3a) 24.9 mEq/L (22-28); Base Excess (BEa) -0.6 mEq/L (-2.0 to +3.0); CO2 Tension 44.2 mmHg (35.0-45.0); Calcium, Ionized (arterial) 1.15 mmol/L (1.12-1.30); Carboxyhemoglobin (COHb) 0.4 gm% (0.0-3.0); Hematocrit-ABG 44 % (42.0-52.0); Hemoglobin (Hb) 14.9 g/dL (14.0-18.0); O2 Tension (PaO2), arterial 76.7 mmHg (80.0-100.0); Potassium - ABG Lab 4.13 mmol/L (3.70-5.30); pH, Arterial 7.369 (7.35-7.45)
[2023-08-12 13:45] LABS: Puncture Site RRA
[2023-08-12] MEDS: Fentanyl CADD 100 ML IV SCH (14:32)
[2023-08-12] MEDS: hydrALAZINE 25 MG TAB PER TUBE SCH ×2 (15:48→20:22)
[2023-08-12] MEDS: LevoFLOXacin 750 mg/D5W 750 MG in Premix Bag 1 BAG IVPB SCH (17:45)
[2023-08-12] MEDS: Lorazepam 2 MG/ML VIAL SLOW IVP PRN (20:14)
[2023-08-12] MEDS: Amlodipine 5 MG TAB PER TUBE SCH (20:14)
[2023-08-13] MEDS: Propofol 1,000 MG/100 ML VIAL IV PRN ×11 (00:29→22:44)
[2023-08-13] MEDS: Sodium Chloride 0.45% 1,000 ML IV SCH ×2 (00:35→07:55)
[2023-08-13] MEDS: Ipratropium/Albuterol 3 ML NEB NEB SCH ×8 (00:40→22:07)
[2023-08-13] MEDS ORDERED: Vecuronium 10 MG VIAL ONE (01:32)
[2023-08-13] MEDS: Lorazepam 2 MG/ML VIAL SLOW IVP PRN (01:37)
[2023-08-13] MEDS ORDERED: Sterile Water 10 ML VIAL IVP SCH (01:45)
[2023-08-13] MEDS ORDERED: Vecuronium 10 MG VIAL IVP SCH (01:45)
[2023-08-13] MEDS ORDERED: Fentanyl CADD 100 ML ONE (03:26)
[2023-08-13] MEDS: Fentanyl CADD 100 ML IV SCH ×2 (03:37→14:12)
[2023-08-13] MEDS: methylPREDNISolone Sod Succ 40 MG VIAL IVP SCH ×3 (05:13→17:17)
[2023-08-13 06:17] LABS: #Monocytes 0.4 thou/uL (0.11-0.59); #Neutrophils 10.1 thou/uL (1.40-6.50); %Basophils 0.1 % (0.0-1.0); %Lymphocytes 2.8 % (21.0-51.0); %Monocytes 3.6 % (0.0-10.0); Hematocrit 43.3 % (42.0-52.0); Hemoglobin 13.8 g/dL (14.0-18.0); Mean Corpuscular HGB CONC 31.9 g/dL (32.0-36.0); Mean Corpuscular Hemoglobin 31.2 pg (27.0-31.0); Mean Corpuscular Volume 97.7 fl (78.0-98.0); Mean Platelet Volume 11.6 fL (7.4-10.4); Platelet Count 207 10x3/uL (130-400); RBC Distribution Width 13.7 % (11.5-14.5); Red Blood Cell (RBC) Count 4.43 mill/uL (4.70-6.10); White Blood Cell (WBC) Count 10.8 10x3/uL (4.8-10.8)
[2023-08-13 06:36] LABS: Anion Gap 16 mmol/L (10-20); BUN (Urea Nitrogen) 15 mg/dL (8.4-25.7); Calc. Creatinine Clearance 170 mL/min (70-130); Calcium 8.8 mg/dL (7.8-10.44); Carbon Dioxide 24 mmol/L (22-29); Chloride 100 mmol/L (98-107); Estimated GFR 82; Glucose 191 mg/dL (70-105); Potassium 4.5 mmol/L (3.5-5.1); Sodium 135 mmol/L (136-145)
[2023-08-13] MEDS: Budesonide 0.5 MG/2 ML NEB NEB SCH ×2 (06:54→19:03)
[2023-08-13 07:03] LABS: Actual Bicarbonate (HCO3a) 26.6 mEq/L (22-28); Base Excess (BEa) -1.2 mEq/L (-2.0 to +3.0); CO2 Tension 57.3 mmHg (35.0-45.0); Calcium, Ionized (arterial) 1.21 mmol/L (1.12-1.30); Carboxyhemoglobin (COHb) 0.7 gm% (0.0-3.0); Hematocrit-ABG 42 % (42.0-52.0); Hemoglobin (Hb) 14.4 g/dL (14.0-18.0); O2 Tension (PaO2), arterial 68.7 mmHg (80.0-100.0); Potassium - ABG Lab 4.33 mmol/L (3.70-5.30); pH, Arterial 7.284 (7.35-7.45)
[2023-08-13 07:18] LABS: ALV-art Gradient 144.875 mmHg (0-20); Puncture Site RRA
[2023-08-13] MEDS: Amlodipine 5 MG TAB PER TUBE SCH ×2 (07:55→20:01)
[2023-08-13] MEDS: Famotidine/PF 20 mg/2ml Vial SLOW IVP SCH ×2 (07:55→20:01)
[2023-08-13] MEDS: hydrALAZINE 25 MG TAB PER TUBE SCH ×3 (07:55→22:44)
[2023-08-13] MEDS ORDERED: Valsartan 80 MG TAB PER TUBE SCH (09:00)
[2023-08-13] MEDS ORDERED: Amlodipine 5 MG TAB PER TUBE SCH (09:00)
[2023-08-13] MEDS ORDERED: Vecuronium 10 MG VIAL IVP PRN (09:01)
[2023-08-13] MEDS ORDERED: Dextrose 50% Abboject 50 ML SYRINGE SLOW IVP PRN (09:02)
[2023-08-13] MEDS ORDERED: Glucagon 1 MG/ML KIT IM PRN (09:02)
[2023-08-13] MEDS ORDERED: Dextrose 5% in Water 1,000 ML IV PRN (09:02)
[2023-08-13] MEDS: Insulin Regular 300 UNITS/3 ML VIAL SC PRN ×3 (09:30→17:25)
[2023-08-13] MEDS: LevoFLOXacin 750 mg/D5W 750 MG in Premix Bag 1 BAG IVPB SCH (17:16)
[2023-08-14] MEDS: methylPREDNISolone Sod Succ 40 MG VIAL IVP SCH ×3 (00:13→20:07)
[2023-08-14] MEDS: Propofol 1,000 MG/100 ML VIAL IV PRN ×11 (00:57→23:46)
[2023-08-14] MEDS: Sodium Chloride 0.45% 1,000 ML IV SCH (00:59)
[2023-08-14] MEDS: Fentanyl CADD 100 ML IV SCH ×3 (01:03→23:46)
[2023-08-14] MEDS: Ipratropium/Albuterol 3 ML NEB NEB SCH ×7 (01:16→22:58)
[2023-08-14] MEDS ORDERED: Ipratropium/Albuterol 3 ML NEB ONE (01:20)
[2023-08-14 05:28] LABS: #Monocytes 0.7 thou/uL (0.11-0.59); #Neutrophils 12.1 thou/uL (1.40-6.50); %Basophils 0.1 % (0.0-1.0); %Lymphocytes 3.7 % (21.0-51.0); %Monocytes 5.1 % (0.0-10.0); %Neutrophils 90.4 % (42.0-75.0); Hemoglobin 13.5 g/dL (14.0-18.0); Mean Corpuscular HGB CONC 30.7 g/dL (32.0-36.0); Mean Platelet Volume 11.3 fL (7.4-10.4); Platelet Count 205 10x3/uL (130-400); RBC Distribution Width 13.6 % (11.5-14.5); Red Blood Cell (RBC) Count 4.35 mill/uL (4.70-6.10); White Blood Cell (WBC) Count 13.4 10x3/uL (4.8-10.8)
[2023-08-14 05:41] LABS: Mean Corpuscular Volume 101.1 fl (78.0-98.0)
[2023-08-14 05:48] LABS: Anion Gap 14 mmol/L (10-20); BUN (Urea Nitrogen) 22 mg/dL (8.4-25.7); Calc. Creatinine Clearance 152 mL/min (70-130); Calcium 9.1 mg/dL (7.8-10.44); Carbon Dioxide 23 mmol/L (22-29); Chloride 99 mmol/L (98-107); Estimated GFR 69; Glucose 183 mg/dL (70-105); Potassium 4.9 mmol/L (3.5-5.1); Sodium 131 mmol/L (136-145)
[2023-08-14] MEDS: Budesonide 0.5 MG/2 ML NEB NEB SCH ×2 (06:31→18:52)
[2023-08-14 06:52] LABS: Actual Bicarbonate (HCO3a) 28.9 mEq/L (22-28); Base Excess (BEa) -0.1 mEq/L (-2.0 to +3.0); Calcium, Ionized (arterial) 1.22 mmol/L (1.12-1.30); Carboxyhemoglobin (COHb) 0.7 gm% (0.0-3.0); Hematocrit-ABG 43 % (42.0-52.0); Hemoglobin (Hb) 14.5 g/dL (14.0-18.0); O2 Tension (PaO2), arterial 61.4 mmHg (80.0-100.0); Potassium - ABG Lab 4.95 mmol/L (3.70-5.30)
[2023-08-14 07:16] LABS: CO2 Tension 67.4 mmHg (35.0-45.0); Puncture Site RRA
[2023-08-14] MEDS: Amlodipine 5 MG TAB PER TUBE SCH ×2 (08:31→20:06)
[2023-08-14] MEDS: Polyethylene Glycol 3350 17 GM Packet PER TUBE SCH (08:32)
[2023-08-14] MEDS: Famotidine/PF 20 mg/2ml Vial SLOW IVP SCH ×2 (08:32→20:06)
[2023-08-14] MEDS: hydrALAZINE 25 MG TAB PER TUBE SCH ×3 (08:32→20:07)
[2023-08-14] MEDS ORDERED: Furosemide 40 MG/4 ML VIAL SLOW IVP SCH (11:15)
[2023-08-14] MEDS: Insulin Regular 300 UNITS/3 ML VIAL SC PRN (13:15)
[2023-08-14] MEDS: LevoFLOXacin 750 mg/D5W 750 MG in Premix Bag 1 BAG IVPB SCH (17:46)
[2023-08-15] MEDS: Propofol 1,000 MG/100 ML VIAL IV PRN ×6 (01:08→15:38)
[2023-08-15] MEDS: Ipratropium/Albuterol 3 ML NEB NEB SCH ×6 (03:07→23:30)
[2023-08-15 04:15] LABS: #Monocytes 0.7 thou/uL (0.11-0.59); #Neutrophils 7.4 thou/uL (1.40-6.50); %Basophils 0.1 % (0.0-1.0); %Lymphocytes 6.7 % (21.0-51.0); %Monocytes 8.3 % (0.0-10.0); %Neutrophils 83.9 % (42.0-75.0); Hematocrit 46.1 % (42.0-52.0); Hemoglobin 14.3 g/dL (14.0-18.0); Mean Corpuscular Hemoglobin 30.8 pg (27.0-31.0); Mean Corpuscular Volume 99.1 fl (78.0-98.0); Mean Platelet Volume 11.4 fL (7.4-10.4); Platelet Count 184 10x3/uL (130-400); RBC Distribution Width 13.6 % (11.5-14.5); Red Blood Cell (RBC) Count 4.65 mill/uL (4.70-6.10); White Blood Cell (WBC) Count 8.8 10x3/uL (4.8-10.8)
[2023-08-15 04:41] LABS: Anion Gap 14 mmol/L (10-20); BUN (Urea Nitrogen) 28 mg/dL (8.4-25.7); Calc. Creatinine Clearance 169 mL/min (70-130); Calcium 9.1 mg/dL (7.8-10.44); Carbon Dioxide 31 mmol/L (22-29); Chloride 96 mmol/L (98-107); Estimated GFR 78; Glucose 170 mg/dL (70-105); Potassium 5.4 mmol/L (3.5-5.1); Sodium 136 mmol/L (136-145)
[2023-08-15] MEDS: Budesonide 0.5 MG/2 ML NEB NEB SCH ×2 (07:02→18:33)
[2023-08-15 07:09] LABS: Actual Bicarbonate (HCO3a) 34.9 mEq/L (22-28); Base Excess (BEa) 6.4 mEq/L (-2.0 to +3.0); Calcium, Ionized (arterial) 1.22 mmol/L (1.12-1.30); Carboxyhemoglobin (COHb) 0.7 gm% (0.0-3.0); Hematocrit-ABG 43 % (42.0-52.0); Hemoglobin (Hb) 14.7 g/dL (14.0-18.0); O2 Tension (PaO2), arterial 60.3 mmHg (80.0-100.0); Potassium - ABG Lab 5.28 mmol/L (3.70-5.30); pH, Arterial 7.329 (7.35-7.45)
[2023-08-15 07:12] LABS: CO2 Tension 67.8 mmHg (35.0-45.0)
[2023-08-15] MEDS: Amlodipine 5 MG TAB PER TUBE SCH ×2 (08:04→21:55)
[2023-08-15] MEDS: Polyethylene Glycol 3350 17 GM Packet PER TUBE SCH (08:04)
[2023-08-15] MEDS: hydrALAZINE 25 MG TAB PER TUBE SCH ×3 (08:04→21:56)
[2023-08-15] MEDS: Famotidine/PF 20 mg/2ml Vial SLOW IVP SCH ×2 (08:04→21:56)
[2023-08-15] MEDS: methylPREDNISolone Sod Succ 40 MG VIAL IVP SCH ×2 (08:05→21:56)
[2023-08-15 08:43] LABS: Potassium 5.3 mmol/L (3.5-5.1)
[2023-08-15] MEDS ORDERED: Fentanyl CADD 100 ML ONE (11:05)
[2023-08-15] MEDS: Fentanyl CADD 100 ML IV SCH (11:07)
[2023-08-15] MEDS: Insulin Regular 300 UNITS/3 ML VIAL SC PRN (12:50)
[2023-08-15] MEDS: Lorazepam 2 MG/ML VIAL SLOW IVP PRN (14:39)
[2023-08-15] MEDS: LevoFLOXacin 750 mg/D5W 750 MG in Premix Bag 1 BAG IVPB SCH (17:20)
[2023-08-15 19:28] LABS: Anion Gap 14 mmol/L (10-20); BUN (Urea Nitrogen) 32 mg/dL (8.4-25.7); Calc. Creatinine Clearance 183 mL/min (70-130); Calcium 8.7 mg/dL (7.8-10.44); Carbon Dioxide 30 mmol/L (22-29); Chloride 97 mmol/L (98-107); Estimated GFR 87; Glucose 155 mg/dL (70-105); Potassium 5.2 mmol/L (3.5-5.1); Sodium 136 mmol/L (136-145)
[2023-08-15 23:50] LABS: Potassium 5.4 mmol/L (3.5-5.1)
[2023-08-16] MEDS: Ipratropium/Albuterol 3 ML NEB NEB SCH ×6 (03:09→22:21)
[2023-08-16] MEDS ORDERED: Fentanyl CADD 100 ML ONE ×2 (05:39→18:34)
[2023-08-16] MEDS: Propofol 1,000 MG/100 ML VIAL IV PRN ×3 (05:48→17:01)
[2023-08-16 06:55] LABS: Anion Gap 19 mmol/L (10-20); BUN (Urea Nitrogen) 32 mg/dL (8.4-25.7); Carbon Dioxide 25 mmol/L (22-29); Chloride 97 mmol/L (98-107); Sodium 136 mmol/L (136-145)
[2023-08-16 06:56] LABS: Calc. Creatinine Clearance 168 mL/min (70-130); Calcium 9.2 mg/dL (7.6-10.4); Estimated GFR 79; Glucose 163 mg/dL (70-105)
[2023-08-16] MEDS: Budesonide 0.5 MG/2 ML NEB NEB SCH ×2 (07:08→18:48)
[2023-08-16 07:26] LABS: #Monocytes 0.6 thou/uL (0.11-0.59); %Basophils 0.1 % (0.0-1.0); %Lymphocytes 8.8 % (21.0-51.0); %Monocytes 8.2 % (0.0-10.0); Hematocrit 44.9 % (42.0-52.0); Hemoglobin 14.5 g/dL (14.0-18.0); Mean Corpuscular HGB CONC 32.3 g/dL (32.0-36.0); Mean Corpuscular Hemoglobin 30.8 pg (27.0-31.0); Mean Corpuscular Volume 95.3 fl (78.0-98.0); Mean Platelet Volume 11.6 fL (7.4-10.4); Platelet Count 154 10x3/uL (130-400); RBC Distribution Width 13.5 % (11.5-14.5); Red Blood Cell (RBC) Count 4.71 mill/uL (4.70-6.10); White Blood Cell (WBC) Count 7.4 10x3/uL (4.8-10.8)
[2023-08-16] MEDS: Insulin Regular 300 UNITS/3 ML VIAL SC PRN (07:44)
[2023-08-16 07:56] LABS: Actual Bicarbonate (HCO3a) 28.8 mEq/L (22-28); Base Excess (BEa) 5.1 mEq/L (-2.0 to +3.0); CO2 Tension 39.4 mmHg (35.0-45.0); Calcium, Ionized (arterial) 1.16 mmol/L (1.12-1.30); Carboxyhemoglobin (COHb) 0.5 gm% (0.0-3.0); Hematocrit-ABG 44 % (42.0-52.0); Hemoglobin (Hb) 14.9 g/dL (14.0-18.0); Potassium - ABG Lab 4.59 mmol/L (3.70-5.30); pH, Arterial 7.482 (7.35-7.45)
[2023-08-16 08:00] LABS: O2 Tension (PaO2), arterial 58.6 mmHg (80.0-100.0); Puncture Site RRA
[2023-08-16] MEDS ORDERED: Arformoterol 15 MCG/2 ML NEB NEB SCH (08:15)
[2023-08-16] MEDS: Famotidine/PF 20 mg/2ml Vial SLOW IVP SCH ×2 (09:40→22:00)
[2023-08-16] MEDS: Polyethylene Glycol 3350 17 GM Packet PER TUBE SCH (09:41)
[2023-08-16] MEDS: Amlodipine 5 MG TAB PER TUBE SCH ×2 (09:41→22:00)
[2023-08-16] MEDS: hydrALAZINE 25 MG TAB PER TUBE SCH ×3 (09:43→22:01)
[2023-08-16] MEDS: methylPREDNISolone Sod Succ 40 MG VIAL IVP SCH ×2 (09:44→22:01)
[2023-08-16] MEDS ORDERED: Metoclopramide HCl 10 MG/2 ML VIAL IVP PRN (10:24)
[2023-08-16] MEDS ORDERED: Polyethylene Glycol 3350 17 GM Packet PO SCH (10:30)
[2023-08-16] MEDS ORDERED: Senokot S 8.6-50 MG TAB PO SCH (10:30)
[2023-08-16] MEDS: Lorazepam 2 MG/ML VIAL SLOW IVP PRN (15:27)
[2023-08-16] MEDS: LevoFLOXacin 750 mg/D5W 750 MG in Premix Bag 1 BAG IVPB SCH (18:25)
[2023-08-16] MEDS: Arformoterol 15 MCG/2 ML NEB NEB SCH (18:49)
[2023-08-16] MEDS: Fentanyl CADD 100 ML IV SCH (18:53)
[2023-08-17] MEDS: Lorazepam 2 MG/ML VIAL SLOW IVP PRN (02:32)
[2023-08-17] MEDS: Ipratropium/Albuterol 3 ML NEB NEB SCH ×5 (03:11→23:02)
[2023-08-17 04:34] LABS: #Monocytes 0.5 thou/uL (0.11-0.59); #Neutrophils 5.7 thou/uL (1.40-6.50); %Basophils 0.1 % (0.0-1.0); %Eosinophils 0.3 % (0.0-10.0); %Lymphocytes 6.7 % (21.0-51.0); %Monocytes 6.8 % (0.0-10.0); %Neutrophils 83.9 % (42.0-75.0); Hematocrit 41.5 % (42.0-52.0); Hemoglobin 13.4 g/dL (14.0-18.0); Mean Corpuscular HGB CONC 32.3 g/dL (32.0-36.0); Mean Corpuscular Hemoglobin 31.1 pg (27.0-31.0); Mean Corpuscular Volume 96.3 fl (78.0-98.0); Mean Platelet Volume 11.5 fL (7.4-10.4); Platelet Count 165 10x3/uL (130-400); RBC Distribution Width 13.5 % (11.5-14.5); Red Blood Cell (RBC) Count 4.31 mill/uL (4.70-6.10); White Blood Cell (WBC) Count 6.8 10x3/uL (4.8-10.8)
[2023-08-17 04:56] LABS: Anion Gap 13 mmol/L (10-20); BUN (Urea Nitrogen) 30 mg/dL (8.4-25.7); Calc. Creatinine Clearance 195 mL/min (70-130); Calcium 9.2 mg/dL (7.8-10.44); Carbon Dioxide 31 mmol/L (22-29); Chloride 97 mmol/L (98-107); Estimated GFR 96; Glucose 169 mg/dL (70-105); Sodium 136 mmol/L (136-145)
[2023-08-17] MEDS: Insulin Regular 300 UNITS/3 ML VIAL SC PRN ×3 (06:11→15:38)
[2023-08-17] MEDS: Arformoterol 15 MCG/2 ML NEB NEB SCH ×2 (07:18→19:15)
[2023-08-17] MEDS: Budesonide 0.5 MG/2 ML NEB NEB SCH ×2 (07:19→19:16)
[2023-08-17 07:27] LABS: Actual Bicarbonate (HCO3a) 31.1 mEq/L (22-28); Base Excess (BEa) 5.2 mEq/L (-2.0 to +3.0); CO2 Tension 50.7 mmHg (35.0-45.0); Calcium, Ionized (arterial) 1.21 mmol/L (1.12-1.30); Carboxyhemoglobin (COHb) 0.8 gm% (0.0-3.0); Hematocrit-ABG 42 % (42.0-52.0); Hemoglobin (Hb) 14.2 g/dL (14.0-18.0); O2 Tension (PaO2), arterial 89.8 mmHg (80.0-100.0); Potassium - ABG Lab 4.82 mmol/L (3.70-5.30); pH, Arterial 7.406 (7.35-7.45)
[2023-08-17 07:30] LABS: ALV-art Gradient 132.025 mmHg (0-20); Puncture Site RRA
[2023-08-17] MEDS ORDERED: Fentanyl CADD 100 ML ONE ×2 (08:33→21:58)
[2023-08-17] MEDS: Fentanyl CADD 100 ML IV SCH (08:35)
[2023-08-17] MEDS: hydrALAZINE 25 MG TAB PER TUBE SCH ×4 (08:42→21:03)
[2023-08-17] MEDS: Amlodipine 5 MG TAB PER TUBE SCH ×2 (08:42→21:46)
[2023-08-17] MEDS: Senokot S 8.6-50 MG TAB PO SCH (08:43)
[2023-08-17] MEDS: Famotidine/PF 20 mg/2ml Vial SLOW IVP SCH ×2 (08:43→21:47)
[2023-08-17] MEDS: Polyethylene Glycol 3350 17 GM Packet PER TUBE SCH (08:43)
[2023-08-17] MEDS: methylPREDNISolone Sod Succ 40 MG VIAL IVP SCH (08:44)
[2023-08-17] MEDS: Polyethylene Glycol 3350 17 GM Packet PO SCH (08:44)
[2023-08-17] MEDS ORDERED: QUEtiapine 25 MG TAB PO SCH (10:30)
[2023-08-17] MEDS ORDERED: Acetylcysteine 20% 200 MG/ML 30 ML VIAL PO SCH (10:30)
[2023-08-17] MEDS: Propofol 1,000 MG/100 ML VIAL IV PRN ×3 (10:33→15:43)
[2023-08-17] MEDS ORDERED: Acetylcysteine 20% 200 MG/ML 30 ML VIAL INH SCH ×2 (10:45→18:30)
[2023-08-17] MEDS ORDERED: Lidocaine 1% (PF) 30 ML VIAL ONE (11:33)
[2023-08-17] MEDS: Dexmedetomidine 1,000 MCG in Sodium Chloride 0.9% 250 ML 240 ML IVPB SCH (11:38)
[2023-08-17] MEDS ORDERED: Ipratropium/Albuterol 3 ML NEB NEB SCH (15:00)
[2023-08-17] MEDS: LevoFLOXacin 750 mg/D5W 750 MG in Premix Bag 1 BAG IVPB SCH (16:59)
[2023-08-17] MEDS: Acetylcysteine (MUCOMYST) 200 MG/ML (10 ML VIAL) NEB SCH (20:07)
[2023-08-17] MEDS: QUEtiapine 25 MG TAB PO SCH (21:46)
[2023-08-18] MEDS: Lorazepam 2 MG/ML VIAL SLOW IVP PRN (00:15)
[2023-08-18 04:55] LABS: #Eosinphils 0.1 thou/uL (0.0-0.7); #Monocytes 0.7 thou/uL (0.11-0.59); #Neutrophils 5.3 thou/uL (1.40-6.50); %Basophils 0.3 % (0.0-1.0); %Lymphocytes 17.4 % (21.0-51.0); %Monocytes 9.3 % (0.0-10.0); %Neutrophils 68.4 % (42.0-75.0); Hematocrit 42.6 % (42.0-52.0); Hemoglobin 13.6 g/dL (14.0-18.0); Mean Corpuscular HGB CONC 31.9 g/dL (32.0-36.0); Mean Platelet Volume 11.6 fL (7.4-10.4); Platelet Count 167 10x3/uL (130-400); RBC Distribution Width 13.7 % (11.5-14.5); Red Blood Cell (RBC) Count 4.39 mill/uL (4.70-6.10); White Blood Cell (WBC) Count 7.7 10x3/uL (4.8-10.8)
[2023-08-18 05:22] LABS: Anion Gap 14 mmol/L (10-20); BUN (Urea Nitrogen) 33 mg/dL (8.4-25.7); Calc. Creatinine Clearance 193 mL/min (70-130); Calcium 9.2 mg/dL (7.8-10.44); Carbon Dioxide 32 mmol/L (22-29); Chloride 97 mmol/L (98-107); Estimated GFR 95; Glucose 128 mg/dL (70-105); Sodium 139 mmol/L (136-145)
[2023-08-18] MEDS: Budesonide 0.5 MG/2 ML NEB NEB SCH ×2 (07:39→18:23)
[2023-08-18] MEDS: Arformoterol 15 MCG/2 ML NEB NEB SCH ×2 (07:39→18:22)
[2023-08-18] MEDS: Ipratropium/Albuterol 3 ML NEB NEB SCH ×3 (07:39→21:57)
[2023-08-18] MEDS: Senokot S 8.6-50 MG TAB PO SCH (07:47)
[2023-08-18] MEDS: Propofol 1,000 MG/100 ML VIAL IV PRN ×2 (07:47→10:07)
[2023-08-18] MEDS: Polyethylene Glycol 3350 17 GM Packet PER TUBE SCH (07:47)
[2023-08-18] MEDS: Amlodipine 5 MG TAB PER TUBE SCH ×2 (07:47→20:22)
[2023-08-18] MEDS: methylPREDNISolone Sod Succ 40 MG VIAL IVP SCH (07:47)
[2023-08-18] MEDS: Famotidine/PF 20 mg/2ml Vial SLOW IVP SCH ×2 (07:47→20:22)
[2023-08-18] MEDS: QUEtiapine 25 MG TAB PO SCH ×2 (07:48→20:22)
[2023-08-18 07:49] LABS: Actual Bicarbonate (HCO3a) 31.3 mEq/L (22-28); Base Excess (BEa) 4.2 mEq/L (-2.0 to +3.0); CO2 Tension 56.2 mmHg (35.0-45.0); Carboxyhemoglobin (COHb) 0.5 gm% (0.0-3.0); Hematocrit-ABG 45 % (42.0-52.0); Hemoglobin (Hb) 15.3 g/dL (14.0-18.0); O2 Tension (PaO2), arterial 76.5 mmHg (80.0-100.0); Potassium - ABG Lab 3.89 mmol/L (3.70-5.30); pH, Arterial 7.363 (7.35-7.45)
[2023-08-18] MEDS: hydrALAZINE 25 MG TAB PER TUBE SCH ×3 (07:49→20:23)
[2023-08-18] MEDS: Polyethylene Glycol 3350 17 GM Packet PO SCH (07:50)
[2023-08-18 07:53] LABS: Puncture Site RRA
[2023-08-18 09:10] LABS: Amphetamine Not Detected (NotDetected); Barbiturates Screen Not Detected (NotDetected); Benzodiazepine Screen Detected (NotDetected); Cocaine Metabolite Screen Not Detected (NotDetected); Methadone Not Detected (NotDetected); Methamphetamine Not Detected (NotDetected); Opiate Screen Detected (NotDetected); Oxycodone Screen Not Detected (NotDetected); Phencyclidine (PCP) Not Detected (NotDetected); THC/Cannabinoid Screen Not Detected (NotDetected); Tricyclic Screen Not Detected (NotDetected)
[2023-08-18] MEDS: Acetylcysteine (MUCOMYST) 200 MG/ML (10 ML VIAL) NEB SCH ×2 (10:37→18:23)
[2023-08-18] MEDS: Insulin Regular 300 UNITS/3 ML VIAL SC PRN (10:50)
[2023-08-18] MEDS ORDERED: Racepinephrine 2.25% 0.5 ML NEB NEB PRN (12:12)
[2023-08-18] MEDS: Dexmedetomidine 1,000 MCG in Sodium Chloride 0.9% 250 ML 240 ML IVPB SCH (12:18)
[2023-08-18] MEDS: LevoFLOXacin 750 mg/D5W 750 MG in Premix Bag 1 BAG IVPB SCH (17:13)
[2023-08-19 05:21] LABS: #Eosinphils 0.1 thou/uL (0.0-0.7); #Monocytes 0.7 thou/uL (0.11-0.59); #Neutrophils 5.4 thou/uL (1.40-6.50); %Basophils 0.3 % (0.0-1.0); %Eosinophils 1.7 % (0.0-10.0); %Lymphocytes 16.6 % (21.0-51.0); %Monocytes 9.2 % (0.0-10.0); %Neutrophils 69.1 % (42.0-75.0); Hematocrit 43.6 % (42.0-52.0); Mean Corpuscular HGB CONC 32.1 g/dL (32.0-36.0); Mean Corpuscular Volume 96.5 fl (78.0-98.0); Mean Platelet Volume 12.2 fL (7.4-10.4); Platelet Count 153 10x3/uL (130-400); RBC Distribution Width 13.6 % (11.5-14.5); Red Blood Cell (RBC) Count 4.52 mill/uL (4.70-6.10); White Blood Cell (WBC) Count 7.8 10x3/uL (4.8-10.8)
[2023-08-19 05:45] LABS: Anion Gap 12 mmol/L (10-20); BUN (Urea Nitrogen) 28 mg/dL (8.4-25.7); Calc. Creatinine Clearance 222 mL/min (70-130); Calcium 8.9 mg/dL (7.8-10.44); Carbon Dioxide 31 mmol/L (22-29); Chloride 99 mmol/L (98-107); Estimated GFR 106; Glucose 88 mg/dL (70-105); Potassium 3.6 mmol/L (3.5-5.1); Sodium 138 mmol/L (136-145)
[2023-08-19] MEDS: Acetylcysteine (MUCOMYST) 200 MG/ML (10 ML VIAL) NEB SCH ×2 (06:36→18:36)
[2023-08-19] MEDS: Ipratropium/Albuterol 3 ML NEB NEB SCH (06:38)
[2023-08-19] MEDS: Budesonide 0.5 MG/2 ML NEB NEB SCH ×2 (06:39→18:35)
[2023-08-19] MEDS: Arformoterol 15 MCG/2 ML NEB NEB SCH ×2 (06:39→18:35)
[2023-08-19] MEDS: Amlodipine 5 MG TAB PER TUBE SCH (08:11)
[2023-08-19] MEDS: Acetaminophen 325 MG TAB PO PRN ×2 (08:11→20:09)
[2023-08-19] MEDS: Famotidine/PF 20 mg/2ml Vial SLOW IVP SCH (08:12)
[2023-08-19] MEDS: methylPREDNISolone Sod Succ 40 MG VIAL IVP SCH (08:12)
[2023-08-19] MEDS: hydrALAZINE 25 MG TAB PER TUBE SCH (08:12)
[2023-08-19] MEDS: Polyethylene Glycol 3350 17 GM Packet PER TUBE SCH (08:12)
[2023-08-19] MEDS: Senokot S 8.6-50 MG TAB PO SCH (08:13)
[2023-08-19] MEDS: Polyethylene Glycol 3350 17 GM Packet PO SCH (08:13)
[2023-08-19] MEDS: QUEtiapine 25 MG TAB PO SCH ×2 (08:13→20:09)
[2023-08-19] MEDS ORDERED: hydrALAZINE 20 MG/ML VIAL SLOW IVP PRN (08:30)
[2023-08-19] MEDS: predniSONE 20 MG TAB PO SCH (08:47)
[2023-08-19 08:53] VITALS: BMI 50.2
[2023-08-19] MEDS ORDERED: NIFEdipine XL 30 MG ER.TAB PO SCH (09:00)
[2023-08-19] MEDS: Ipratropium/Albuterol 3 ML NEB EZPAP SCH ×2 (13:11→23:15)
[2023-08-19] MEDS ORDERED: Amlodipine 10 MG TAB PO SCH (16:00)
[2023-08-19] MEDS ORDERED: cloNIDine 0.2 MG TAB PO PRN (16:06)
[2023-08-19] MEDS: Famotidine 20 MG TAB PO SCH (20:09)
[2023-08-19] MEDS: hydrALAZINE 25 MG TAB PO SCH (20:09)
[2023-08-20 05:23] LABS: #Eosinphils 0.1 thou/uL (0.0-0.7); #Monocytes 0.9 thou/uL (0.11-0.59); #Neutrophils 6.3 thou/uL (1.40-6.50); %Basophils 0.3 % (0.0-1.0); %Eosinophils 1.3 % (0.0-10.0); %Lymphocytes 16.1 % (21.0-51.0); %Monocytes 9.7 % (0.0-10.0); %Neutrophils 69.7 % (42.0-75.0); Hematocrit 44.6 % (42.0-52.0); Hemoglobin 14.5 g/dL (14.0-18.0); Mean Corpuscular HGB CONC 32.5 g/dL (32.0-36.0); Mean Corpuscular Hemoglobin 30.5 pg (27.0-31.0); Mean Corpuscular Volume 93.9 fl (78.0-98.0); Mean Platelet Volume 12.1 fL (7.4-10.4); Platelet Count 176 10x3/uL (130-400); RBC Distribution Width 13.4 % (11.5-14.5); Red Blood Cell (RBC) Count 4.75 mill/uL (4.70-6.10); White Blood Cell (WBC) Count 9.1 10x3/uL (4.8-10.8)
[2023-08-20 05:48] LABS: Anion Gap 14 mmol/L (10-20); BUN (Urea Nitrogen) 30 mg/dL (8.4-25.7); Calc. Creatinine Clearance 217 mL/min (70-130); Calcium 9.3 mg/dL (7.8-10.44); Carbon Dioxide 28 mmol/L (22-29); Chloride 100 mmol/L (98-107); Estimated GFR 105; Glucose 93 mg/dL (70-105); Potassium 3.4 mmol/L (3.5-5.1); Sodium 139 mmol/L (136-145)
[2023-08-20] MEDS: Budesonide 0.5 MG/2 ML NEB NEB SCH ×2 (06:04→18:50)
[2023-08-20] MEDS: Acetylcysteine (MUCOMYST) 200 MG/ML (10 ML VIAL) NEB SCH (06:04)
[2023-08-20] MEDS: Ipratropium/Albuterol 3 ML NEB EZPAP SCH ×3 (06:04→23:04)
[2023-08-20] MEDS: Arformoterol 15 MCG/2 ML NEB NEB SCH ×2 (06:05→18:52)
[2023-08-20] MEDS ORDERED: Potassium Chloride 20 MEQ TAB PO SCH (08:00)
[2023-08-20] MEDS: predniSONE 20 MG TAB PO SCH (08:25)
[2023-08-20] MEDS: hydrALAZINE 25 MG TAB PO SCH ×3 (08:25→20:17)
[2023-08-20] MEDS: QUEtiapine 25 MG TAB PO SCH ×2 (08:26→20:16)
[2023-08-20] MEDS: Amlodipine 10 MG TAB PO SCH (08:26)
[2023-08-20] MEDS: Senokot S 8.6-50 MG TAB PO SCH (08:26)
[2023-08-20] MEDS: Famotidine 20 MG TAB PO SCH ×2 (08:26→20:17)
[2023-08-20] MEDS: Polyethylene Glycol 3350 17 GM Packet PO SCH (08:27)
[2023-08-20] MEDS ORDERED: Clindamycin 150 MG CAP PO SCH (14:45)
[2023-08-20] MEDS: Clindamycin 150 MG CAP PO SCH (20:16)
[2023-08-21] MEDS: Clindamycin 150 MG CAP PO SCH ×2 (05:49→13:14)
[2023-08-21] MEDS: Ipratropium/Albuterol 3 ML NEB EZPAP SCH ×2 (06:07→14:12)
[2023-08-21] MEDS: Budesonide 0.5 MG/2 ML NEB NEB SCH (06:07)
[2023-08-21] MEDS: Arformoterol 15 MCG/2 ML NEB NEB SCH (06:08)
[2023-08-21 06:32] LABS: Anion Gap 16 mmol/L (10-20); BUN (Urea Nitrogen) 28 mg/dL (8.4-25.7); Calc. Creatinine Clearance 205 mL/min (70-130); Calcium 9.3 mg/dL (7.8-10.44); Carbon Dioxide 23 mmol/L (22-29); Chloride 101 mmol/L (98-107); Estimated GFR 103; Glucose 89 mg/dL (70-105); Sodium 136 mmol/L (136-145)
[2023-08-21] MEDS: hydrALAZINE 25 MG TAB PO SCH ×2 (08:26→14:39)
[2023-08-21] MEDS: QUEtiapine 25 MG TAB PO SCH (08:26)
[2023-08-21] MEDS: Amlodipine 10 MG TAB PO SCH (08:26)
[2023-08-21] MEDS: Famotidine 20 MG TAB PO SCH (08:26)
[2023-08-21] MEDS: predniSONE 20 MG TAB PO SCH (08:26)
[2023-08-21] MEDS: Senokot S 8.6-50 MG TAB PO SCH (08:30)
[2023-08-21] MEDS: Polyethylene Glycol 3350 17 GM Packet PO SCH (08:31)
[2023-08-21] MEDS ORDERED: Saccharomyces boulardii 250 MG CAP PO SCH (09:00)
[2023-08-21 17:28] VITALS: BP 122/80; TEMP 97.5
== END 2023-08-21 16:37 | disposition home or self-care (01) | DRG 207 ==
LOC: ERS 18:19 → CCU 19:53 → UNDOADMIN 08-12 00:24 → CCU 08-14 16:13 → T4-A 08-19 18:18
PROVIDERS: ADMIT Student in an Organized Health Care Education/Training Program; ATTEND Internal Medicine Critical Care Medicine
PROC: 5A1955Z Respiratory Ventilation, Greater than 96 Consecutive Hours (ICD-10-PCS; principal; 2023-08-11)
PROC: 0BH17EZ Insertion of Endotracheal Airway into Trachea, Via Natural or Artificial Opening (ICD-10-PCS; 2023-08-11)
PROC: 0D9670Z Drainage of Stomach with Drainage Device, Via Natural or Artificial Opening (ICD-10-PCS; 2023-08-11)
PROC: 4A033R1 Measurement of Arterial Saturation, Peripheral, Percutaneous Approach (ICD-10-PCS; 2023-08-13)
PROC: 0BC68ZZ Extirpation of Matter from Right Lower Lobe Bronchus, Via Natural or Artificial Opening Endoscopic (ICD-10-PCS; 2023-08-17)
PROC: 5A09357 Assistance with Respiratory Ventilation, Less than 24 Consecutive Hours, Continuous Positive Airway Pressure (ICD-10-PCS; 2023-08-19)
DX: J96.21 Acute and chronic respiratory failure with hypoxia (principal); G93.41 Metabolic encephalopathy; J44.1 Chronic obstructive pulmonary disease with (acute) exacerbation; Z68.43 Body mass index [BMI] 50.0-59.9, adult; J96.22 Acute and chronic respiratory failure with hypercapnia; K21.9 Gastro-esophageal reflux disease without esophagitis; I10 Essential (primary) hypertension; Z96.651 Presence of right artificial knee joint; F41.9 Anxiety disorder, unspecified; F32.A Depression, unspecified; F43.10 Post-traumatic stress disorder, unspecified; F17.210 Nicotine dependence, cigarettes, uncomplicated; Z20.822 Contact with and (suspected) exposure to COVID-19; E66.01 Morbid (severe) obesity due to excess calories; G89.29 Other chronic pain; K02.9 Dental caries, unspecified; K05.10 Chronic gingivitis, plaque induced; I25.10 Atherosclerotic heart disease of native coronary artery without angina pectoris; R73.9 Hyperglycemia, unspecified; T38.0X5A Adverse effect of glucocorticoids and synthetic analogues, initial encounter; I08.1 Rheumatic disorders of both mitral and tricuspid valves; E87.5 Hyperkalemia; I25.2 Old myocardial infarction; Z98.890 Other specified postprocedural states; Z78.1 Physical restraint status; Z79.51 Long term (current) use of inhaled steroids; Z79.82 Long term (current) use of aspirin; Z79.899 Other long term (current) drug therapy
CPT/HCPCS: 31500; 36415; 36416; 36600; 51702; 71045; 80048; 80053; 80306; 81001; 82805; 83605; 83735; 83880; 84484; 85025; 87040; 87070; 87205; 93005; 93306; 94002; 94003; 94660; 96361; 96365; 96366; 96367; 96368; 96375; J0132; J0360; J1100; J1650; J1815; J1940; J1956; J2001; J2060; J2704; J2920; J2930; J3010; J3475; J3490; J7050; J7512; J7608; J7611; J7620; J7626; S0028; U0002

== ENCOUNTER 2023-11-21 23:57 | Inpatient (IN) | payer OTHER, MEDICAID ==
[2023-11-22] MEDS ORDERED: Morphine 4 MG/ML VIAL ONE (01:05)
[2023-11-22] MEDS ORDERED: Ondansetron ODT 4 MG TAB ONE (01:06)
[2023-11-22] MEDS ORDERED: methylPREDNISolone Sod Succ/PF 125 MG/2 ML VIAL ONE (01:06)
[2023-11-22 01:14] LABS: #Eosinphils 0.2 thou/uL (0.0-0.7); #Monocytes 0.6 thou/uL (0.11-0.59); #Neutrophils 7.3 thou/uL (1.40-6.50); %Basophils 0.2 % (0.0-1.0); %Eosinophils 2.1 % (0.0-10.0); %Lymphocytes 11.9 % (21.0-51.0); %Monocytes 6.6 % (0.0-10.0); %Neutrophils 78.6 % (42.0-75.0); Hematocrit 39.9 % (42.0-52.0); Hemoglobin 12.6 g/dL (14.0-18.0); Mean Corpuscular HGB CONC 31.6 g/dL (32.0-36.0); Mean Corpuscular Hemoglobin 30.2 pg (27.0-31.0); Mean Corpuscular Volume 95.7 fl (78.0-98.0); Mean Platelet Volume 11.8 fL (7.4-10.4); Platelet Count 162 10x3/uL (130-400); RBC Distribution Width 14.8 % (11.5-14.5); Red Blood Cell (RBC) Count 4.17 mill/uL (4.70-6.10); White Blood Cell (WBC) Count 9.3 10x3/uL (4.8-10.8)
[2023-11-22 01:51] LABS: Troponin I Less than 0.010 ng/mL (< 0.028)
[2023-11-22 01:55] LABS: ALT (SGPT) 21 U/L (8-55); AST (SGOT) 17 U/L (5-34); Albumin 3.5 g/dL (3.5-5.0); Alkaline Phosphatase 76 U/L (40-110); Anion Gap 16 mmol/L (10-20); BUN (Urea Nitrogen) 18 mg/dL (8.4-25.7); Bilirubin, Total 0.2 mg/dL (0.2-1.2); Calc. Creatinine Clearance 0 mL/min (70-130); Calcium 8.9 mg/dL (7.8-10.44); Carbon Dioxide 25 mmol/L (22-29); Chloride 101 mmol/L (98-107); Estimated GFR 89; Globulin 3.1 g/dL (2.4-3.5); Glucose 140 mg/dL (70-105); Magnesium 2.3 mg/dL (1.6-2.6); Potassium 4.7 mmol/L (3.5-5.1); Protein, Total 6.6 g/dL (6.0-8.3); Sodium 137 mmol/L (136-145)
[2023-11-22] MEDS ORDERED: hydrALAZINE 25 MG TAB PO PRN (02:36)
[2023-11-22] MEDS ORDERED: Ondansetron PF 4 MG/2 ML Vial IVP PRN (02:45)
[2023-11-22] MEDS ORDERED: Acetaminophen 325 MG TAB PO PRN (02:45)
[2023-11-22] MEDS ORDERED: Lactated Ringer's 1,000 ML IV SCH (02:45)
[2023-11-22] MEDS ORDERED: Albuterol 2.5 MG (3 mL) NEB NEB PRN (02:49)
[2023-11-22 03:15] LABS: Actual Bicarbonate (HCO3v) 27.8 mEq/L (22-28); Base Excess -0.8 mEq/L (-2.0 to +3.0); pH (venous) 7.257 (7.32-7.43)
[2023-11-22 03:16] LABS: Calcium, Ionized (venous) 1.13 mmol/L (1.16-1.32); Chloride (VBG) 99 mmol/L (98-106); Hematocrit-VBG 41 % (42.0-52.0); Hemoglobin (Hb) 14.1 g/dL (13.1-17.2); Potassium (VBG) 4.83 mmol/L (3.70-5.30); Sodium 136 mmol/L (133-146)
[2023-11-22 03:35] LABS: #Eosinphils 0.1 thou/uL (0.0-0.7); #Monocytes 0.4 thou/uL (0.11-0.59); #Neutrophils 9.8 thou/uL (1.40-6.50); %Basophils 0.2 % (0.0-1.0); %Eosinophils 0.6 % (0.0-10.0); %Lymphocytes 5.2 % (21.0-51.0); %Monocytes 3.4 % (0.0-10.0); %Neutrophils 89.9 % (42.0-75.0); Hematocrit 41.2 % (42.0-52.0); Hemoglobin 12.8 g/dL (14.0-18.0); Mean Corpuscular HGB CONC 31.1 g/dL (32.0-36.0); Mean Corpuscular Hemoglobin 30.1 pg (27.0-31.0); Mean Corpuscular Volume 96.9 fl (78.0-98.0); Mean Platelet Volume 11.8 fL (7.4-10.4); Platelet Count 164 10x3/uL (130-400); RBC Distribution Width 14.9 % (11.5-14.5); Red Blood Cell (RBC) Count 4.25 mill/uL (4.70-6.10); White Blood Cell (WBC) Count 10.9 10x3/uL (4.8-10.8)
[2023-11-22] MEDS ORDERED: Sodium Chloride 0.9% 200 ML ONE (03:54)
[2023-11-22] MEDS ORDERED: cefTRIAXone (ROCEPHIN) 2 GM VIAL ONE (03:54)
[2023-11-22] MEDS ORDERED: Azithromycin 500 MG VIAL ONE (03:54)
[2023-11-22 04:06] LABS: Troponin I 0.023 ng/mL (< 0.028)
[2023-11-22] MEDS ORDERED: LevoFLOXacin D5W 500 mg (100 mL) BAG ONE (05:50)
[2023-11-22] MEDS: LevoFLOXacin 500 mg/D5W 500 MG in Premix 1 BAG IVPB SCH (06:01)
[2023-11-22] MEDS: Nicotine 21 MG PATCH TD SCH (06:02)
[2023-11-22] MEDS ORDERED: Ipratropium/Albuterol 3 ML NEB NEB SCH (06:30)
[2023-11-22 07:00] LABS: #Monocytes 0.1 thou/uL (0.11-0.59); #Neutrophils 10.2 thou/uL (1.40-6.50); %Basophils 0.1 % (0.0-1.0); %Eosinophils 0.1 % (0.0-10.0); %Lymphocytes 3.2 % (21.0-51.0); %Neutrophils 94.8 % (42.0-75.0); Hematocrit 43.7 % (42.0-52.0); Hemoglobin 13.3 g/dL (14.0-18.0); Mean Corpuscular HGB CONC 30.4 g/dL (32.0-36.0); Mean Corpuscular Hemoglobin 29.9 pg (27.0-31.0); Mean Corpuscular Volume 98.2 fl (78.0-98.0); Mean Platelet Volume 11.3 fL (7.4-10.4); Platelet Count 163 10x3/uL (130-400); RBC Distribution Width 14.8 % (11.5-14.5); Red Blood Cell (RBC) Count 4.45 mill/uL (4.70-6.10); White Blood Cell (WBC) Count 10.8 10x3/uL (4.8-10.8)
[2023-11-22 07:21] LABS: Anion Gap 13 mmol/L (10-20); BUN (Urea Nitrogen) 16 mg/dL (8.4-25.7); Calc. Creatinine Clearance 213 mL/min (70-130); Calcium 8.8 mg/dL (7.8-10.44); Carbon Dioxide 27 mmol/L (22-29); Chloride 99 mmol/L (98-107); Estimated GFR 101; Glucose 238 mg/dL (70-105); Potassium 5.1 mmol/L (3.5-5.1); Sodium 134 mmol/L (136-145)
[2023-11-22 07:27] LABS: Troponin I 0.021 ng/mL (< 0.028)
[2023-11-22] MEDS: methylPREDNISolone Sod Succ 40 MG VIAL IVP SCH ×4 (07:29→23:06)
[2023-11-22 07:50] VITALS: BMI 62.1
[2023-11-22] MEDS ORDERED: Furosemide 40 MG TAB PO SCH (09:00)
[2023-11-22] MEDS ORDERED: hydrALAZINE 20 MG/ML VIAL SLOW IVP PRN (09:30)
[2023-11-22] MEDS: Valsartan 80 MG TAB PO SCH (09:40)
[2023-11-22] MEDS: Montelukast Sodium 10 mg Tablet PO SCH (09:40)
[2023-11-22] MEDS: Saccharomyces boulardii 250 MG CAP PO SCH (09:40)
[2023-11-22] MEDS: Atorvastatin Calcium 40 MG TAB PO SCH (09:40)
[2023-11-22] MEDS: Aspirin 81 mg Enteric Coated Tablet PO SCH (09:40)
[2023-11-22] MEDS: Amlodipine 10 MG TAB PO SCH (09:40)
[2023-11-22] MEDS: Heparin 5,000 UNITS/ML VIAL SC SCH ×3 (09:41→20:22)
[2023-11-22] MEDS: Furosemide 40 MG (4 mL) VIAL SLOW IVP SCH (09:41)
[2023-11-22 09:54] LABS: Amphetamine Not Detected (NotDetected); Barbiturates Screen Not Detected (NotDetected); Benzodiazepine Screen Not Detected (NotDetected); Cocaine Metabolite Screen Not Detected (NotDetected); Methadone Not Detected (NotDetected); Methamphetamine Not Detected (NotDetected); Opiate Screen Detected (NotDetected); Oxycodone Screen Not Detected (NotDetected); Phencyclidine (PCP) Not Detected (NotDetected); THC/Cannabinoid Screen Not Detected (NotDetected); Tricyclic Screen Not Detected (NotDetected)
[2023-11-22] MEDS ORDERED: Iopamidol-370 76% 500 ML MDV (1 ML CHARGE) ONE (10:20)
[2023-11-22] MEDS: Ipratropium/Albuterol 3 ML NEB NEB SCH ×5 (11:30→22:06)
[2023-11-23] MEDS: Ipratropium/Albuterol 3 ML NEB NEB SCH ×8 (01:00→21:36)
[2023-11-23] MEDS: Nicotine 21 MG PATCH TD SCH (02:04)
[2023-11-23] MEDS: LevoFLOXacin 500 mg/D5W 500 MG in Premix 1 BAG IVPB SCH (02:04)
[2023-11-23] MEDS: methylPREDNISolone Sod Succ 40 MG VIAL IVP SCH ×4 (06:17→23:23)
[2023-11-23 06:47] LABS: #Monocytes 0.4 thou/uL (0.11-0.59); #Neutrophils 10.9 thou/uL (1.40-6.50); %Basophils 0.1 % (0.0-1.0); %Lymphocytes 3.7 % (21.0-51.0); %Monocytes 3.5 % (0.0-10.0); %Neutrophils 92.2 % (42.0-75.0); Hematocrit 41.1 % (42.0-52.0); Hemoglobin 12.6 g/dL (14.0-18.0); Mean Corpuscular HGB CONC 30.7 g/dL (32.0-36.0); Mean Corpuscular Hemoglobin 29.9 pg (27.0-31.0); Mean Corpuscular Volume 97.6 fl (78.0-98.0); Mean Platelet Volume 11.3 fL (7.4-10.4); Platelet Count 186 10x3/uL (130-400); RBC Distribution Width 14.7 % (11.5-14.5); Red Blood Cell (RBC) Count 4.21 mill/uL (4.70-6.10); White Blood Cell (WBC) Count 11.8 10x3/uL (4.8-10.8)
[2023-11-23 07:04] LABS: Anion Gap 12 mmol/L (10-20); BUN (Urea Nitrogen) 17 mg/dL (8.4-25.7); Calc. Creatinine Clearance 248 mL/min (70-130); Calcium 8.9 mg/dL (7.8-10.44); Carbon Dioxide 29 mmol/L (22-29); Chloride 97 mmol/L (98-107); Estimated GFR 103; Glucose 213 mg/dL (70-105); Potassium 4.7 mmol/L (3.5-5.1); Sodium 133 mmol/L (136-145)
[2023-11-23] MEDS: Amlodipine 10 MG TAB PO SCH (08:10)
[2023-11-23] MEDS: Heparin 5,000 UNITS/ML VIAL SC SCH ×3 (08:10→23:24)
[2023-11-23] MEDS: Saccharomyces boulardii 250 MG CAP PO SCH (08:10)
[2023-11-23] MEDS: Pantoprazole 40 MG VIAL IVP SCH (08:10)
[2023-11-23] MEDS: Atorvastatin Calcium 40 MG TAB PO SCH (08:10)
[2023-11-23] MEDS: Aspirin 81 mg Enteric Coated Tablet PO SCH (08:10)
[2023-11-23] MEDS: Montelukast Sodium 10 mg Tablet PO SCH (08:11)
[2023-11-23] MEDS ORDERED: methylPREDNISolone Sod Succ 40 MG VIAL IVP SCH (09:00)
[2023-11-23] MEDS: Valsartan 80 MG TAB PO SCH (09:03)
[2023-11-23] MEDS: Furosemide 40 MG (4 mL) VIAL SLOW IVP SCH (09:04)
[2023-11-24] MEDS: Ipratropium/Albuterol 3 ML NEB NEB SCH ×8 (01:17→22:38)
[2023-11-24] MEDS: LevoFLOXacin 500 mg/D5W 500 MG in Premix 1 BAG IVPB SCH (04:00)
[2023-11-24] MEDS: Nicotine 21 MG PATCH TD SCH (04:05)
[2023-11-24] MEDS: methylPREDNISolone Sod Succ 40 MG VIAL IVP SCH ×4 (06:26→23:15)
[2023-11-24 07:42] LABS: Anion Gap 15 mmol/L (10-20); BUN (Urea Nitrogen) 22 mg/dL (8.4-25.7); Calc. Creatinine Clearance 206 mL/min (70-130); Calcium 8.7 mg/dL (7.8-10.44); Carbon Dioxide 25 mmol/L (22-29); Chloride 96 mmol/L (98-107); Estimated GFR 84; Glucose 284 mg/dL (70-105); Potassium 4.4 mmol/L (3.5-5.1); Sodium 132 mmol/L (136-145)
[2023-11-24] MEDS: Pantoprazole 40 MG VIAL IVP SCH (08:46)
[2023-11-24] MEDS: Furosemide 40 MG (4 mL) VIAL SLOW IVP SCH (08:46)
[2023-11-24] MEDS: Heparin 5,000 UNITS/ML VIAL SC SCH ×3 (08:47→20:21)
[2023-11-24] MEDS: Montelukast Sodium 10 mg Tablet PO SCH (08:47)
[2023-11-24] MEDS: Valsartan 80 MG TAB PO SCH (08:47)
[2023-11-24] MEDS: Amlodipine 10 MG TAB PO SCH (08:47)
[2023-11-24] MEDS: Aspirin 81 mg Enteric Coated Tablet PO SCH (08:47)
[2023-11-24] MEDS: Atorvastatin Calcium 40 MG TAB PO SCH (08:47)
[2023-11-24] MEDS: Saccharomyces boulardii 250 MG CAP PO SCH (08:47)
[2023-11-24] MEDS: Lorazepam 0.5 MG TAB PO PRN ×3 (09:20→20:21)
[2023-11-24] MEDS: hydrALAZINE 25 MG TAB PO SCH (20:21)
[2023-11-25] MEDS: Ipratropium/Albuterol 3 ML NEB NEB SCH ×6 (02:04→13:36)
[2023-11-25] MEDS: LevoFLOXacin 500 mg/D5W 500 MG in Premix 1 BAG IVPB SCH (03:04)
[2023-11-25] MEDS: methylPREDNISolone Sod Succ 40 MG VIAL IVP SCH ×2 (05:25→14:22)
[2023-11-25 05:43] LABS: Anion Gap 14 mmol/L (10-20); BUN (Urea Nitrogen) 20 mg/dL (8.4-25.7); Calc. Creatinine Clearance 198 mL/min (70-130); Calcium 9.1 mg/dL (7.8-10.44); Carbon Dioxide 29 mmol/L (22-29); Chloride 96 mmol/L (98-107); Estimated GFR 80; Glucose 296 mg/dL (70-105); Potassium 5.1 mmol/L (3.5-5.1); Sodium 134 mmol/L (136-145)
[2023-11-25 08:24] VITALS: TEMP 98.2
[2023-11-25] MEDS ORDERED: Nicotine 21 MG PATCH TD SCH (09:00)
[2023-11-25] MEDS: Montelukast Sodium 10 mg Tablet PO SCH (09:56)
[2023-11-25] MEDS: Pantoprazole 40 MG VIAL IVP SCH (09:56)
[2023-11-25] MEDS: Atorvastatin Calcium 40 MG TAB PO SCH (09:57)
[2023-11-25] MEDS: Valsartan 80 MG TAB PO SCH (09:57)
[2023-11-25] MEDS: Saccharomyces boulardii 250 MG CAP PO SCH (09:57)
[2023-11-25] MEDS: Amlodipine 10 MG TAB PO SCH (09:57)
[2023-11-25] MEDS: Heparin 5,000 UNITS/ML VIAL SC SCH (09:58)
[2023-11-25] MEDS: hydrALAZINE 25 MG TAB PO SCH (09:58)
[2023-11-25] MEDS: Aspirin 81 mg Enteric Coated Tablet PO SCH (09:58)
[2023-11-25 12:04] VITALS: BP 167/88
[2023-11-25] MEDS: Furosemide 40 MG (4 mL) VIAL SLOW IVP SCH (14:22)
== END 2023-11-25 14:46 | disposition home health service (06) | DRG 190 ==
LOC: ERS 23:57 → ERHOLD 11-22 02:32 → CCU 11-22 02:32 → OBSVTOIN 11-22 03:52 → CCU 11-22 07:22 → T4-A 11-23 21:04
PROVIDERS: ADMIT Internal Medicine; ATTEND Hospitalist
DX: J44.1 Chronic obstructive pulmonary disease with (acute) exacerbation (principal); J96.21 Acute and chronic respiratory failure with hypoxia; I10 Essential (primary) hypertension
CPT/HCPCS: 36415; 71045; 71275; 80048; 80053; 80306; 82805; 83735; 83880; 84443; 84484; 85025; 87040; 87077; 93005; 94640; 94660; 96365; 96367; 96375; C9113; J0360; J0456; J0696; J1644; J1940; J1956; J2270; J2920; J2930; J3490; J7620; Q0162; Q9967

== ENCOUNTER 2023-12-05 08:48 | Inpatient (IN) | payer OTHER, MEDICAID ==
[2023-12-05] MEDS ORDERED: KETAMINE 100 MG/ML (5ML VIAL) ONE (08:53)
[2023-12-05] MEDS ORDERED: methylPREDNISolone Sod Succ/PF 125 MG/2 ML VIAL ONE ×2 (09:01→09:02)
[2023-12-05] MEDS ORDERED: Magnesium 2 GM/50 ML BAG (IN WATER) ONE (09:01)
[2023-12-05] MEDS ORDERED: Ipratropium/Albuterol 3 ML NEB ONE (09:03)
[2023-12-05] MEDS ORDERED: Albuterol 2.5 MG (0.5 mL) NEB ONE ×2 (09:04→09:45)
[2023-12-05] MEDS ORDERED: Nitroglycerin 2% Ointment 1 INCH/1 GM Packet ONE (09:14)
[2023-12-05 09:18] LABS: Actual Bicarbonate (HCO3a) 21.8 mEq/L (22-28); Analyzer IN Cardio ER; Base Excess (BEa) -4.9 mEq/L (-2.0 to +3.0); CO2 Tension 46.6 mmHg (35.0-45.0); Calcium, Ionized (arterial) 1.18 mmol/L (1.12-1.30); Carboxyhemoglobin (COHb) 0.9 gm% (0.0-3.0); Hematocrit-ABG 39 % (42.0-52.0); Hemoglobin (Hb) 13.4 g/dL (14.0-18.0); Potassium - ABG Lab 4.75 mmol/L (3.70-5.30); pH, Arterial 7.287 (7.35-7.45)
[2023-12-05 09:19] LABS: #Basophils 0.1 thou/uL (0.0-0.2); #Eosinphils 0.1 thou/uL (0.0-0.7); #Monocytes 0.9 thou/uL (0.11-0.59); #Neutrophils 14.5 thou/uL (1.40-6.50); %Basophils 0.4 % (0.0-1.0); %Eosinophils 0.7 % (0.0-10.0); %Lymphocytes 11.5 % (21.0-51.0); %Monocytes 4.8 % (0.0-10.0); %Neutrophils 80.4 % (42.0-75.0); Hematocrit 43.1 % (42.0-52.0); Hemoglobin 13.2 g/dL (14.0-18.0); Mean Corpuscular HGB CONC 30.6 g/dL (32.0-36.0); Mean Corpuscular Hemoglobin 29.7 pg (27.0-31.0); Mean Corpuscular Volume 96.9 fl (78.0-98.0); Mean Platelet Volume 11.8 fL (7.4-10.4); Platelet Count 254 10x3/uL (130-400); RBC Distribution Width 15.1 % (11.5-14.5); Red Blood Cell (RBC) Count 4.45 mill/uL (4.70-6.10)
[2023-12-05 09:35] LABS: ALT (SGPT) 60 U/L (8-55); AST (SGOT) 28 U/L (5-34); Albumin 3.7 g/dL (3.5-5.0); Alkaline Phosphatase 86 U/L (40-110); Anion Gap 16 mmol/L (10-20); BUN (Urea Nitrogen) 24 mg/dL (8.4-25.7); Bilirubin, Total 0.6 mg/dL (0.2-1.2); Calc. Creatinine Clearance 0 mL/min (70-130); Calcium 9.1 mg/dL (7.8-10.44); Carbon Dioxide 24 mmol/L (22-29); Chloride 102 mmol/L (98-107); Estimated GFR 69; Globulin 2.8 g/dL (2.4-3.5); Glucose 271 mg/dL (70-105); Potassium 4.4 mmol/L (3.5-5.1); Protein, Total 6.5 g/dL (6.0-8.3); Sodium 138 mmol/L (136-145)
[2023-12-05 09:38] LABS: Prothrombin Time 13.2 sec (12.0-14.7)
[2023-12-05 09:39] LABS: PTT 31.5 sec (22.9-36.1); Troponin I 0.187 ng/mL (< 0.028)
[2023-12-05] MEDS ORDERED: dilTIAZem 125 MG/25 ML SDV ONE ×2 (09:54→10:52)
[2023-12-05] MEDS ORDERED: Ondansetron ODT 4 MG TAB SL PRN (10:40)
[2023-12-05] MEDS ORDERED: Acetaminophen 325 MG TAB PO PRN (10:40)
[2023-12-05] MEDS ORDERED: dilTIAZem 125 MG in Sodium Chloride 0.9% 100 ML IVPB SCH (10:40)
[2023-12-05] MEDS ORDERED: Ondansetron PF 4 MG/2 ML Vial IVP PRN (10:40)
[2023-12-05] MEDS ORDERED: Aspirin Chewable 81 MG TAB ONE (10:52)
[2023-12-05] MEDS ORDERED: Cefepime 2 GM VIAL ONE (10:54)
[2023-12-05] MEDS ORDERED: Sodium Chloride 0.9% 100 ML ONE (10:54)
[2023-12-05] MEDS ORDERED: Enoxaparin 100 MG (1 mL) SYRINGE ONE (10:55)
[2023-12-05] MEDS ORDERED: Enoxaparin 80 MG (0.8 mL) SYRINGE ONE (10:55)
[2023-12-05 11:25] LABS: Puncture Site RRA
[2023-12-05] MEDS ORDERED: hydrALAZINE 25 MG TAB PO PRN (11:35)
[2023-12-05] MEDS ORDERED: Ipratropium/Albuterol 3 ML NEB NEB PRN (11:35)
[2023-12-05] MEDS ORDERED: Vancomycin (BATCH) 2 GM/500 ML BAG ONE (12:19)
[2023-12-05 12:38] LABS: Troponin I 0.223 ng/mL (< 0.028)
[2023-12-05] MEDS ORDERED: Lorazepam 1 MG TAB ONE (14:57)
[2023-12-05] MEDS ORDERED: Acetaminophen 325 MG TAB ONE (14:57)
[2023-12-05] MEDS: Lorazepam 0.5 MG TAB PO PRN (15:21)
[2023-12-05] MEDS: Furosemide 40 MG (4 mL) VIAL SLOW IVP SCH (16:25)
[2023-12-05] MEDS: methylPREDNISolone Sod Succ 40 MG VIAL IVP SCH ×2 (16:26)
[2023-12-05 16:40] LABS: Critical Call Chem Troponin I RESULT DECREASING
[2023-12-05] MEDS ORDERED: Digoxin 0.5 MG/2 ML AMP ONE (17:14)
[2023-12-05] MEDS ORDERED: Digoxin 0.5 MG/2 ML AMP SLOW IVP SCH ×2 (17:15→17:45)
[2023-12-05] MEDS ORDERED: FLU VACC QS2023-24(6MOS UP)/PF 60 MCG/0.5 ML SYRINGE IM ONE (17:45)
[2023-12-05] MEDS: dilTIAZem 125 MG in Sodium Chloride 0.9% 100 ML IVPB SCH ×2 (18:45→22:19)
[2023-12-05] MEDS ORDERED: diphenhydrAMINE 50 MG/ML VIAL IVP SCH (21:45)
[2023-12-05] MEDS: Morphine 2 MG/ML VIAL SLOW IVP PRN (22:02)
[2023-12-05] MEDS: Vancomycin (BATCH) 1.5 GM in Premix 1 BAG IVPB SCH (22:18)
[2023-12-05] MEDS: Cefepime 2 GM in Sodium Chloride 0.9% 100 ML IVPB SCH (22:24)
[2023-12-06] MEDS: methylPREDNISolone Sod Succ 40 MG VIAL IVP SCH ×4 (01:03→18:13)
[2023-12-06] MEDS ORDERED: Albuterol 2.5 MG (3 mL) NEB NEB PRN (02:35)
[2023-12-06] MEDS: Morphine 2 MG/ML VIAL SLOW IVP PRN ×5 (02:36→22:42)
[2023-12-06] MEDS: Furosemide 40 MG (4 mL) VIAL SLOW IVP SCH ×2 (06:10→14:04)
[2023-12-06] MEDS: Mometasone 100 MCG/Formoterol 5 MCG 120 PUFF INHALER INH SCH ×2 (06:39→18:57)
[2023-12-06] MEDS: Ipratropium/Albuterol 3 ML NEB NEB SCH ×4 (06:43→23:46)
[2023-12-06] MEDS: Nicotine 21 MG PATCH TD SCH (08:02)
[2023-12-06] MEDS: Atorvastatin Calcium 40 MG TAB PO SCH (08:02)
[2023-12-06] MEDS: Vancomycin (BATCH) 1.5 GM in Premix 1 BAG IVPB SCH (08:11)
[2023-12-06 08:54] LABS: #Monocytes 0.2 thou/uL (0.11-0.59); #Neutrophils 10.4 thou/uL (1.40-6.50); %Basophils 0.1 % (0.0-1.0); %Lymphocytes 2.6 % (21.0-51.0); %Neutrophils 94.2 % (42.0-75.0); Hematocrit 37.7 % (42.0-52.0); Hemoglobin 11.8 g/dL (14.0-18.0); Mean Corpuscular HGB CONC 31.3 g/dL (32.0-36.0); Mean Corpuscular Hemoglobin 30.2 pg (27.0-31.0); Mean Corpuscular Volume 96.4 fl (78.0-98.0); Mean Platelet Volume 11.8 fL (7.4-10.4); Platelet Count 174 10x3/uL (130-400); RBC Distribution Width 14.9 % (11.5-14.5); Red Blood Cell (RBC) Count 3.91 mill/uL (4.70-6.10)
[2023-12-06] MEDS ORDERED: Enoxaparin 40 MG (0.4 mL) SYRINGE SC SCH (09:00)
[2023-12-06 09:10] LABS: Anion Gap 16 mmol/L (10-20); BUN (Urea Nitrogen) 24 mg/dL (8.4-25.7); Calc. Creatinine Clearance 209 mL/min (70-130); Calcium 8.8 mg/dL (7.8-10.44); Carbon Dioxide 26 mmol/L (22-29); Chloride 98 mmol/L (98-107); Estimated GFR 81; Glucose 339 mg/dL (70-105); Potassium 4.8 mmol/L (3.5-5.1); Sodium 135 mmol/L (136-145)
[2023-12-06] MEDS: dilTIAZem 125 MG in Sodium Chloride 0.9% 100 ML IVPB SCH (09:57)
[2023-12-06] MEDS ORDERED: Losartan 25 MG TAB PO SCH (10:00)
[2023-12-06] MEDS: Lorazepam 0.5 MG TAB PO PRN ×2 (10:02→20:28)
[2023-12-06] MEDS: Cefepime 2 GM in Sodium Chloride 0.9% 100 ML IVPB SCH (11:26)
[2023-12-06] MEDS ORDERED: Enoxaparin 100 MG (1 mL) SYRINGE SC SCH (13:00)
[2023-12-06] MEDS ORDERED: Amiodarone 150 MG, Admixture Fee 1 EACH in Dextrose 5% in Water 100 ML IVPB SCH (17:30)
[2023-12-06] MEDS: Amiodarone 450 MG, Admixture Fee 1 EACH in Dextrose 5% in Water 250 ML IVPB SCH (18:13)
[2023-12-06] MEDS: Enoxaparin 100 MG (1 mL) SYRINGE SC SCH (20:28)
[2023-12-06] MEDS: Enoxaparin 80 MG (0.8 mL) SYRINGE SC SCH (20:28)
[2023-12-06] MEDS: Sacubitril 24MG/Valsartan 26 MG TAB PO SCH (20:28)
[2023-12-06 21:04] LABS: Vancomycin, Trough 9.2 ug/mL
[2023-12-06] MEDS: Vancomycin (BATCH) 1.75 GM in Premix 1 BAG IVPB SCH (21:38)
[2023-12-07] MEDS ORDERED: Metoprolol Tartrate 5 MG (5 mL) VIAL IVP SCH (00:15)
[2023-12-07] MEDS: methylPREDNISolone Sod Succ 40 MG VIAL IVP SCH ×3 (00:36→17:43)
[2023-12-07] MEDS: Cefepime 2 GM in Sodium Chloride 0.9% 100 ML IVPB SCH ×2 (00:36→11:16)
[2023-12-07] MEDS: Morphine 2 MG/ML VIAL SLOW IVP PRN ×3 (02:23→19:48)
[2023-12-07 04:37] LABS: Actual Bicarbonate (HCO3v) 26.4 mEq/L (22-28); Base Excess 0.6 mEq/L (-2.0 to +3.0); Calcium, Ionized (venous) 1.16 mmol/L (1.16-1.32); Chloride (VBG) 96 mmol/L (98-106); Hematocrit-VBG 39 % (42.0-52.0); Hemoglobin (Hb) 13.1 g/dL (13.1-17.2); Potassium (VBG) 5.06 mmol/L (3.70-5.30); Sodium 132 mmol/L (133-146); pH (venous) 7.368 (7.32-7.43)
[2023-12-07 05:25] LABS: #Monocytes 0.4 thou/uL (0.11-0.59); #Neutrophils 12.1 thou/uL (1.40-6.50); %Basophils 0.1 % (0.0-1.0); %Lymphocytes 2.6 % (21.0-51.0); %Monocytes 3.2 % (0.0-10.0); %Neutrophils 93.1 % (42.0-75.0); Hemoglobin 12.2 g/dL (14.0-18.0); Mean Corpuscular HGB CONC 30.5 g/dL (32.0-36.0); Mean Corpuscular Hemoglobin 29.3 pg (27.0-31.0); Mean Corpuscular Volume 95.9 fl (78.0-98.0); Mean Platelet Volume 11.9 fL (7.4-10.4); Platelet Count 205 10x3/uL (130-400); RBC Distribution Width 14.9 % (11.5-14.5); Red Blood Cell (RBC) Count 4.17 mill/uL (4.70-6.10); White Blood Cell (WBC) Count 12.9 10x3/uL (4.8-10.8)
[2023-12-07 06:01] LABS: Anion Gap 13 mmol/L (10-20); BUN (Urea Nitrogen) 28 mg/dL (8.4-25.7); Calc. Creatinine Clearance 176 mL/min (70-130); Calcium 8.8 mg/dL (7.8-10.44); Carbon Dioxide 27 mmol/L (22-29); Chloride 98 mmol/L (98-107); Estimated GFR 65; Glucose 375 mg/dL (70-105); Sodium 133 mmol/L (136-145)
[2023-12-07] MEDS: Ipratropium/Albuterol 3 ML NEB NEB SCH ×3 (06:15→18:52)
[2023-12-07] MEDS: Mometasone 100 MCG/Formoterol 5 MCG 120 PUFF INHALER INH SCH ×2 (06:15→18:52)
[2023-12-07] MEDS ORDERED: Losartan 25 MG TAB PO SCH (09:00)
[2023-12-07] MEDS ORDERED: Digoxin 0.5 MG/2 ML AMP SLOW IVP SCH ×2 (10:45→21:15)
[2023-12-07] MEDS: Furosemide 40 MG (4 mL) VIAL SLOW IVP SCH ×2 (11:15→15:33)
[2023-12-07] MEDS: Enoxaparin 100 MG (1 mL) SYRINGE SC SCH ×2 (11:15→21:24)
[2023-12-07] MEDS: Enoxaparin 80 MG (0.8 mL) SYRINGE SC SCH ×2 (11:15→21:24)
[2023-12-07] MEDS: Atorvastatin Calcium 40 MG TAB PO SCH (11:15)
[2023-12-07] MEDS: Nicotine 21 MG PATCH TD SCH (11:16)
[2023-12-07] MEDS: Sacubitril 24MG/Valsartan 26 MG TAB PO SCH ×2 (11:16→21:34)
[2023-12-07] MEDS: Vancomycin (BATCH) 1.75 GM in Premix 1 BAG IVPB SCH ×2 (11:16→21:24)
[2023-12-07] MEDS: Vancomycin (BATCH) 1.5 GM in Premix 1 BAG IVPB SCH (12:27)
[2023-12-07] MEDS: Lorazepam 0.5 MG TAB PO PRN (15:33)
[2023-12-07] MEDS ORDERED: Glucagon 1 MG/ML KIT IM PRN (17:00)
[2023-12-07] MEDS ORDERED: Dextrose 50% Abboject 50 ML SYRINGE SLOW IVP PRN (17:00)
[2023-12-07] MEDS ORDERED: Dextrose 5% in Water 1,000 ML IV PRN (17:00)
[2023-12-07] MEDS ORDERED: HumaLOG 300 UNITS/3 ML VIAL SC PRN (17:00)
[2023-12-07 19:03] LABS: Magnesium 2.2 mg/dL (1.6-2.6)
[2023-12-07] MEDS: Nystatin Powder 15 GM BOT TOP PRN (21:36)
[2023-12-08] MEDS: methylPREDNISolone Sod Succ 40 MG VIAL IVP SCH ×5 (00:06→23:04)
[2023-12-08] MEDS: Cefepime 2 GM in Sodium Chloride 0.9% 100 ML IVPB SCH ×3 (00:06→23:00)
[2023-12-08] MEDS: Morphine 2 MG/ML VIAL SLOW IVP PRN ×5 (00:07→20:42)
[2023-12-08] MEDS: Amiodarone 450 MG, Admixture Fee 1 EACH in Dextrose 5% in Water 250 ML IVPB SCH ×2 (00:07→14:44)
[2023-12-08] MEDS: diphenhydrAMINE 12.5 MG/5 ML UDCUP PO PRN (00:08)
[2023-12-08] MEDS: Ipratropium/Albuterol 3 ML NEB NEB SCH ×5 (02:10→23:34)
[2023-12-08 02:11] LABS: Strep pneumo Urine Ag NEGATIVE (NEGATIVE)
[2023-12-08 02:20] LABS: SARS-CoV-2 NAA Rapid Test Not Detected (NotDetected)
[2023-12-08] MEDS: Furosemide 40 MG (4 mL) VIAL SLOW IVP SCH ×2 (05:38→14:27)
[2023-12-08] MEDS: HumaLOG 300 UNITS/3 ML VIAL SC PRN ×3 (06:22→20:40)
[2023-12-08] MEDS: Mometasone 100 MCG/Formoterol 5 MCG 120 PUFF INHALER INH SCH ×2 (07:04→19:35)
[2023-12-08 08:12] LABS: #Monocytes 0.3 thou/uL (0.11-0.59); %Basophils 0.1 % (0.0-1.0); %Lymphocytes 2.9 % (21.0-51.0); %Neutrophils 91.9 % (42.0-75.0); Hematocrit 40.6 % (42.0-52.0); Hemoglobin 12.7 g/dL (14.0-18.0); Mean Corpuscular HGB CONC 31.3 g/dL (32.0-36.0); Mean Corpuscular Hemoglobin 30.2 pg (27.0-31.0); Mean Corpuscular Volume 96.4 fl (78.0-98.0); Mean Platelet Volume 11.8 fL (7.4-10.4); Platelet Count 186 10x3/uL (130-400); RBC Distribution Width 14.4 % (11.5-14.5); Red Blood Cell (RBC) Count 4.21 mill/uL (4.70-6.10); White Blood Cell (WBC) Count 10.9 10x3/uL (4.8-10.8)
[2023-12-08 08:21] LABS: Hemoglobin A1c 7.9 % (4.0-6.0)
[2023-12-08 08:28] LABS: Vancomycin, Trough 14.6 ug/mL
[2023-12-08] MEDS: Enoxaparin 100 MG (1 mL) SYRINGE SC SCH ×2 (08:30→20:38)
[2023-12-08] MEDS: Nicotine 21 MG PATCH TD SCH (08:30)
[2023-12-08] MEDS: Enoxaparin 80 MG (0.8 mL) SYRINGE SC SCH ×2 (08:30→20:38)
[2023-12-08] MEDS: Atorvastatin Calcium 40 MG TAB PO SCH (08:30)
[2023-12-08] MEDS: Sacubitril 24MG/Valsartan 26 MG TAB PO SCH ×2 (08:30→20:40)
[2023-12-08 08:37] LABS: Anion Gap 13 mmol/L (10-20); BUN (Urea Nitrogen) 31 mg/dL (8.4-25.7); Calc. Creatinine Clearance 187 mL/min (70-130); Calcium 8.7 mg/dL (7.8-10.44); Carbon Dioxide 30 mmol/L (22-29); Chloride 93 mmol/L (98-107); Estimated GFR 73; Glucose 392 mg/dL (70-105); Sodium 131 mmol/L (136-145)
[2023-12-08] MEDS: Vancomycin (BATCH) 1.75 GM in Premix 1 BAG IVPB SCH (11:37)
[2023-12-08] MEDS ORDERED: Insulin NPH Human Isophane 100 UNITS/ML (10 ML VIAL) SC SCH (13:45)
[2023-12-08] MEDS: Nystatin Powder 15 GM BOT TOP PRN (14:33)
[2023-12-08] MEDS: Lorazepam 0.5 MG TAB PO PRN (14:34)
[2023-12-08] MEDS: dilTIAZem 125 MG in Sodium Chloride 0.9% 100 ML IVPB SCH (20:00)
[2023-12-08] MEDS: Insulin NPH Human Isophane 100 UNITS/ML (10 ML VIAL) SC SCH (20:38)
[2023-12-08] MEDS ORDERED: Digoxin 0.5 MG/2 ML AMP SLOW IVP SCH (22:45)
[2023-12-09] MEDS: Morphine 2 MG/ML VIAL SLOW IVP PRN ×6 (00:50→21:38)
[2023-12-09] MEDS: Lorazepam 0.5 MG TAB PO PRN ×2 (00:50→21:30)
[2023-12-09] MEDS: diphenhydrAMINE 12.5 MG/5 ML UDCUP PO PRN ×2 (00:51→21:29)
[2023-12-09] MEDS: Furosemide 40 MG (4 mL) VIAL SLOW IVP SCH ×2 (05:04→14:00)
[2023-12-09] MEDS: methylPREDNISolone Sod Succ 40 MG VIAL IVP SCH ×4 (05:05→23:27)
[2023-12-09] MEDS: HumaLOG 300 UNITS/3 ML VIAL SC PRN ×4 (05:45→21:33)
[2023-12-09 06:16] LABS: #Monocytes 0.5 thou/uL (0.11-0.59); #Neutrophils 9.7 thou/uL (1.40-6.50); %Basophils 0.1 % (0.0-1.0); %Lymphocytes 3.3 % (21.0-51.0); %Monocytes 4.7 % (0.0-10.0); %Neutrophils 90.2 % (42.0-75.0); Hematocrit 43.2 % (42.0-52.0); Hemoglobin 13.5 g/dL (14.0-18.0); Mean Corpuscular HGB CONC 31.3 g/dL (32.0-36.0); Mean Corpuscular Hemoglobin 29.7 pg (27.0-31.0); Mean Corpuscular Volume 94.9 fl (78.0-98.0); Mean Platelet Volume 11.5 fL (7.4-10.4); Platelet Count 175 10x3/uL (130-400); RBC Distribution Width 14.2 % (11.5-14.5); Red Blood Cell (RBC) Count 4.55 mill/uL (4.70-6.10); White Blood Cell (WBC) Count 10.8 10x3/uL (4.8-10.8)
[2023-12-09 06:50] LABS: Anion Gap 15 mmol/L (10-20); BUN (Urea Nitrogen) 29 mg/dL (8.4-25.7); Calc. Creatinine Clearance 199 mL/min (70-130); Calcium 8.8 mg/dL (7.8-10.44); Carbon Dioxide 31 mmol/L (22-29); Chloride 92 mmol/L (98-107); Estimated GFR 79; Glucose 297 mg/dL (70-105); Potassium 4.9 mmol/L (3.5-5.1); Sodium 133 mmol/L (136-145)
[2023-12-09] MEDS: Ipratropium/Albuterol 3 ML NEB NEB SCH ×3 (07:13→18:21)
[2023-12-09] MEDS: Mometasone 100 MCG/Formoterol 5 MCG 120 PUFF INHALER INH SCH ×2 (07:13→18:24)
[2023-12-09] MEDS: dilTIAZem 125 MG in Sodium Chloride 0.9% 100 ML IVPB SCH ×2 (07:57→21:33)
[2023-12-09] MEDS: Amiodarone 450 MG, Admixture Fee 1 EACH in Dextrose 5% in Water 250 ML IVPB SCH ×2 (07:57→21:34)
[2023-12-09] MEDS: Nicotine 21 MG PATCH TD SCH (07:58)
[2023-12-09] MEDS: Atorvastatin Calcium 40 MG TAB PO SCH (07:58)
[2023-12-09] MEDS: Sacubitril 24MG/Valsartan 26 MG TAB PO SCH ×2 (07:58→21:31)
[2023-12-09] MEDS: Enoxaparin 100 MG (1 mL) SYRINGE SC SCH ×2 (07:58→21:32)
[2023-12-09] MEDS: Insulin NPH Human Isophane 100 UNITS/ML (10 ML VIAL) SC SCH ×2 (07:58→21:32)
[2023-12-09] MEDS: Enoxaparin 80 MG (0.8 mL) SYRINGE SC SCH ×2 (07:59→21:32)
[2023-12-09] MEDS: Cefepime 2 GM in Sodium Chloride 0.9% 100 ML IVPB SCH ×2 (10:06→23:27)
[2023-12-09] MEDS ORDERED: Insulin NPH Human Isophane 100 UNITS/ML (10 ML VIAL) SC SCH (11:30)
[2023-12-09] MEDS: Nystatin Powder 15 GM BOT TOP PRN (14:36)
[2023-12-10] MEDS: Ipratropium/Albuterol 3 ML NEB NEB SCH ×4 (00:51→18:18)
[2023-12-10] MEDS: Morphine 2 MG/ML VIAL SLOW IVP PRN ×5 (02:20→23:18)
[2023-12-10] MEDS: methylPREDNISolone Sod Succ 40 MG VIAL IVP SCH ×4 (05:19→23:23)
[2023-12-10] MEDS: Furosemide 40 MG (4 mL) VIAL SLOW IVP SCH ×2 (05:19→14:59)
[2023-12-10] MEDS: HumaLOG 300 UNITS/3 ML VIAL SC PRN ×4 (06:25→20:43)
[2023-12-10 06:29] LABS: #Eosinphils 0.4 thou/uL (0.0-0.7); #Monocytes 0.5 thou/uL (0.11-0.59); #Neutrophils 12.2 thou/uL (1.40-6.50); %Basophils 0.2 % (0.0-1.0); %Lymphocytes 2.9 % (21.0-51.0); %Monocytes 3.4 % (0.0-10.0); %Neutrophils 89.1 % (42.0-75.0); Hematocrit 46.4 % (42.0-52.0); Hemoglobin 14.7 g/dL (14.0-18.0); Mean Corpuscular HGB CONC 31.7 g/dL (32.0-36.0); Mean Corpuscular Hemoglobin 28.8 pg (27.0-31.0); Mean Corpuscular Volume 90.8 fl (78.0-98.0); Mean Platelet Volume 11.4 fL (7.4-10.4); Platelet Count 205 10x3/uL (130-400); RBC Distribution Width 14.1 % (11.5-14.5); Red Blood Cell (RBC) Count 5.11 mill/uL (4.70-6.10); White Blood Cell (WBC) Count 13.7 10x3/uL (4.8-10.8)
[2023-12-10 06:55] LABS: Anion Gap 18 mmol/L (10-20); BUN (Urea Nitrogen) 35 mg/dL (8.4-25.7); Calc. Creatinine Clearance 179 mL/min (70-130); Calcium 8.9 mg/dL (7.8-10.44); Carbon Dioxide 31 mmol/L (22-29); Chloride 90 mmol/L (98-107); Estimated GFR 70; Glucose 325 mg/dL (70-105); Potassium 4.7 mmol/L (3.5-5.1); Sodium 134 mmol/L (136-145)
[2023-12-10 06:58] LABS: Digoxin 0.94 ng/mL (0.8-2.0)
[2023-12-10] MEDS: Mometasone 100 MCG/Formoterol 5 MCG 120 PUFF INHALER INH SCH ×2 (08:12→18:20)
[2023-12-10] MEDS: Sacubitril 24MG/Valsartan 26 MG TAB PO SCH ×2 (08:47→20:29)
[2023-12-10] MEDS: Nicotine 21 MG PATCH TD SCH (08:47)
[2023-12-10] MEDS: Atorvastatin Calcium 40 MG TAB PO SCH (08:47)
[2023-12-10] MEDS: Enoxaparin 80 MG (0.8 mL) SYRINGE SC SCH ×2 (08:48→20:31)
[2023-12-10] MEDS: Enoxaparin 100 MG (1 mL) SYRINGE SC SCH ×2 (08:48→20:30)
[2023-12-10] MEDS: Insulin NPH Human Isophane 100 UNITS/ML (10 ML VIAL) SC SCH ×2 (08:48→20:40)
[2023-12-10] MEDS: Lorazepam 0.5 MG TAB PO PRN (10:51)
[2023-12-10] MEDS: Amiodarone 450 MG, Admixture Fee 1 EACH in Dextrose 5% in Water 250 ML IVPB SCH (14:59)
[2023-12-11] MEDS: Ipratropium/Albuterol 3 ML NEB NEB SCH ×4 (01:01→18:04)
[2023-12-11] MEDS: Morphine 2 MG/ML VIAL SLOW IVP PRN ×4 (05:10→20:16)
[2023-12-11] MEDS: Amiodarone 450 MG, Admixture Fee 1 EACH in Dextrose 5% in Water 250 ML IVPB SCH ×2 (05:14→20:17)
[2023-12-11] MEDS: Furosemide 40 MG (4 mL) VIAL SLOW IVP SCH ×2 (05:57→15:55)
[2023-12-11] MEDS: methylPREDNISolone Sod Succ 40 MG VIAL IVP SCH ×3 (05:57→17:21)
[2023-12-11] MEDS: HumaLOG 300 UNITS/3 ML VIAL SC PRN ×4 (06:03→20:31)
[2023-12-11 06:31] LABS: #Monocytes 0.5 thou/uL (0.11-0.59); #Neutrophils 13.4 thou/uL (1.40-6.50); %Basophils 0.2 % (0.0-1.0); %Lymphocytes 2.9 % (21.0-51.0); %Monocytes 3.2 % (0.0-10.0); %Neutrophils 92.4 % (42.0-75.0); Hematocrit 45.2 % (42.0-52.0); Hemoglobin 14.4 g/dL (14.0-18.0); Mean Corpuscular HGB CONC 31.9 g/dL (32.0-36.0); Mean Corpuscular Hemoglobin 29.6 pg (27.0-31.0); Mean Corpuscular Volume 92.8 fl (78.0-98.0); Mean Platelet Volume 11.1 fL (7.4-10.4); Platelet Count 194 10x3/uL (130-400); RBC Distribution Width 14.3 % (11.5-14.5); Red Blood Cell (RBC) Count 4.87 mill/uL (4.70-6.10); White Blood Cell (WBC) Count 14.5 10x3/uL (4.8-10.8)
[2023-12-11] MEDS: Mometasone 100 MCG/Formoterol 5 MCG 120 PUFF INHALER INH SCH ×2 (06:36→18:05)
[2023-12-11 07:00] LABS: Anion Gap 14 mmol/L (10-20); BUN (Urea Nitrogen) 36 mg/dL (8.4-25.7); Calc. Creatinine Clearance 197 mL/min (70-130); Calcium 8.5 mg/dL (7.8-10.44); Carbon Dioxide 30 mmol/L (22-29); Chloride 91 mmol/L (98-107); Estimated GFR 78; Glucose 322 mg/dL (70-105); Potassium 4.7 mmol/L (3.5-5.1); Sodium 130 mmol/L (136-145)
[2023-12-11] MEDS: Atorvastatin Calcium 40 MG TAB PO SCH (08:13)
[2023-12-11] MEDS: Enoxaparin 80 MG (0.8 mL) SYRINGE SC SCH ×2 (08:13→20:15)
[2023-12-11] MEDS: Sacubitril 24MG/Valsartan 26 MG TAB PO SCH ×2 (08:13→20:16)
[2023-12-11] MEDS: Enoxaparin 100 MG (1 mL) SYRINGE SC SCH ×2 (08:13→20:15)
[2023-12-11] MEDS: Nicotine 21 MG PATCH TD SCH (08:13)
[2023-12-11] MEDS: Insulin NPH Human Isophane 100 UNITS/ML (10 ML VIAL) SC SCH ×2 (08:14→20:17)
[2023-12-11] MEDS ORDERED: Magnesium Sulfate 3 GM in Sodium Chloride 0.9% 100 ML IVPB SCH (10:00)
[2023-12-11] MEDS: Lorazepam 0.5 MG TAB PO PRN ×2 (10:42→22:38)
[2023-12-11] MEDS: diphenhydrAMINE 12.5 MG/5 ML UDCUP PO PRN (22:39)
[2023-12-12] MEDS: Morphine 2 MG/ML VIAL SLOW IVP PRN ×4 (00:48→17:00)
[2023-12-12] MEDS: Ipratropium/Albuterol 3 ML NEB NEB SCH ×4 (01:14→18:48)
[2023-12-12 03:52] LABS: #Monocytes 0.6 thou/uL (0.11-0.59); #Neutrophils 14.1 thou/uL (1.40-6.50); %Basophils 0.1 % (0.0-1.0); %Lymphocytes 2.8 % (21.0-51.0); %Monocytes 3.8 % (0.0-10.0); %Neutrophils 91.9 % (42.0-75.0); Hematocrit 43.2 % (42.0-52.0); Hemoglobin 13.9 g/dL (14.0-18.0); Mean Corpuscular HGB CONC 32.2 g/dL (32.0-36.0); Mean Corpuscular Hemoglobin 29.8 pg (27.0-31.0); Mean Corpuscular Volume 92.5 fl (78.0-98.0); Mean Platelet Volume 11.1 fL (7.4-10.4); Platelet Count 180 10x3/uL (130-400); RBC Distribution Width 14.3 % (11.5-14.5); Red Blood Cell (RBC) Count 4.67 mill/uL (4.70-6.10); White Blood Cell (WBC) Count 15.3 10x3/uL (4.8-10.8)
[2023-12-12 04:16] LABS: Anion Gap 13 mmol/L (10-20); BUN (Urea Nitrogen) 30 mg/dL (8.4-25.7); Calc. Creatinine Clearance 199 mL/min (70-130); Calcium 8.3 mg/dL (7.8-10.44); Carbon Dioxide 32 mmol/L (22-29); Chloride 91 mmol/L (98-107); Estimated GFR 79; Glucose 332 mg/dL (70-105); Magnesium 2.8 mg/dL (1.6-2.6); Sodium 131 mmol/L (136-145)
[2023-12-12] MEDS: HumaLOG 300 UNITS/3 ML VIAL SC PRN ×3 (06:34→20:38)
[2023-12-12] MEDS: Mometasone 100 MCG/Formoterol 5 MCG 120 PUFF INHALER INH SCH ×2 (07:24→18:47)
[2023-12-12] MEDS: Atorvastatin Calcium 40 MG TAB PO SCH (08:02)
[2023-12-12] MEDS: Furosemide 40 MG TAB PO SCH (08:02)
[2023-12-12] MEDS: methylPREDNISolone Sod Succ 40 MG VIAL IVP SCH ×2 (08:02→19:52)
[2023-12-12] MEDS: Sacubitril 24MG/Valsartan 26 MG TAB PO SCH ×2 (08:03→19:52)
[2023-12-12] MEDS: Enoxaparin 80 MG (0.8 mL) SYRINGE SC SCH (08:03)
[2023-12-12] MEDS: Nicotine 21 MG PATCH TD SCH (08:03)
[2023-12-12] MEDS: Enoxaparin 100 MG (1 mL) SYRINGE SC SCH (08:03)
[2023-12-12] MEDS: Insulin NPH Human Isophane 100 UNITS/ML (10 ML VIAL) SC SCH ×2 (08:19→19:53)
[2023-12-12] MEDS ORDERED: Amiodarone 200 MG TAB PO SCH (10:15)
[2023-12-12] MEDS: Amiodarone 200 MG TAB PO SCH (19:52)
[2023-12-12] MEDS: Apixaban 5 MG TAB PO SCH (19:52)
[2023-12-12] MEDS: traMADol HCl 50 MG TAB PO PRN (23:04)
[2023-12-12] MEDS: Lorazepam 0.5 MG TAB PO PRN (23:15)
[2023-12-12] MEDS: diphenhydrAMINE 12.5 MG/5 ML UDCUP PO PRN (23:15)
[2023-12-13] MEDS: Ipratropium/Albuterol 3 ML NEB NEB SCH ×3 (00:36→13:25)
[2023-12-13] MEDS: traMADol HCl 50 MG TAB PO PRN ×2 (05:23→13:05)
[2023-12-13 05:32] LABS: #Monocytes 0.5 thou/uL (0.11-0.59); #Neutrophils 11.9 thou/uL (1.40-6.50); %Basophils 0.2 % (0.0-1.0); %Eosinophils 0.1 % (0.0-10.0); %Lymphocytes 3.3 % (21.0-51.0); %Monocytes 3.4 % (0.0-10.0); %Neutrophils 91.2 % (42.0-75.0); Hematocrit 44.8 % (42.0-52.0); Hemoglobin 14.4 g/dL (14.0-18.0); Mean Corpuscular HGB CONC 32.1 g/dL (32.0-36.0); Mean Corpuscular Hemoglobin 29.8 pg (27.0-31.0); Mean Corpuscular Volume 92.6 fl (78.0-98.0); Mean Platelet Volume 11.6 fL (7.4-10.4); Platelet Count 165 10x3/uL (130-400); RBC Distribution Width 14.1 % (11.5-14.5); Red Blood Cell (RBC) Count 4.84 mill/uL (4.70-6.10); White Blood Cell (WBC) Count 13.1 10x3/uL (4.8-10.8)
[2023-12-13 06:26] LABS: Anion Gap 12 mmol/L (10-20); BUN (Urea Nitrogen) 27 mg/dL (8.4-25.7); Calc. Creatinine Clearance 194 mL/min (70-130); Calcium 8.6 mg/dL (7.8-10.44); Carbon Dioxide 30 mmol/L (22-29); Chloride 95 mmol/L (98-107); Estimated GFR 80; Glucose 334 mg/dL (70-105); Potassium 5.3 mmol/L (3.5-5.1); Sodium 132 mmol/L (136-145)
[2023-12-13] MEDS: HumaLOG 300 UNITS/3 ML VIAL SC PRN ×2 (06:44→12:59)
[2023-12-13] MEDS: Mometasone 100 MCG/Formoterol 5 MCG 120 PUFF INHALER INH SCH (07:11)
[2023-12-13] MEDS: Amiodarone 200 MG TAB PO SCH (08:43)
[2023-12-13] MEDS: Sacubitril 24MG/Valsartan 26 MG TAB PO SCH (08:44)
[2023-12-13] MEDS: Atorvastatin Calcium 40 MG TAB PO SCH (08:44)
[2023-12-13] MEDS: methylPREDNISolone Sod Succ 40 MG VIAL IVP SCH (08:44)
[2023-12-13] MEDS: Nicotine 21 MG PATCH TD SCH (08:44)
[2023-12-13] MEDS: Lorazepam 0.5 MG TAB PO PRN (08:44)
[2023-12-13] MEDS: Furosemide 40 MG TAB PO SCH (08:44)
[2023-12-13] MEDS: Apixaban 5 MG TAB PO SCH (08:44)
[2023-12-13] MEDS: Insulin NPH Human Isophane 100 UNITS/ML (10 ML VIAL) SC SCH (08:45)
[2023-12-13 10:25] VITALS: BP 151/78
[2023-12-13 14:01] VITALS: BMI 60.7
[2023-12-13 16:46] VITALS: TEMP 98
[2023-12-14] MEDS ORDERED: predniSONE 20 MG TAB PO SCH (08:00)
[2023-12-19] MEDS ORDERED: Amiodarone 200 MG TAB PO SCH (09:00)
== END 2023-12-13 18:59 | disposition home or self-care (01) | DRG 280 ==
LOC: ERS 08:48 → ERHOLD 10:46 → IMCU/EMU 15:40
PROVIDERS: ADMIT Internal Medicine; ATTEND Family Medicine
PROC: 4A133R1 Monitoring of Arterial Saturation, Peripheral, Percutaneous Approach (ICD-10-PCS; principal; 2023-12-05)
PROC: 5A09457 Assistance with Respiratory Ventilation, 24-96 Consecutive Hours, Continuous Positive Airway Pressure (ICD-10-PCS; 2023-12-05)
DX: I48.91 Unspecified atrial fibrillation (principal); I21.A1 Myocardial infarction type 2; J96.21 Acute and chronic respiratory failure with hypoxia; J96.22 Acute and chronic respiratory failure with hypercapnia; J44.1 Chronic obstructive pulmonary disease with (acute) exacerbation; E66.2 Morbid (severe) obesity with alveolar hypoventilation; Z68.44 Body mass index [BMI] 60.0-69.9, adult; I48.92 Unspecified atrial flutter; I25.10 Atherosclerotic heart disease of native coronary artery without angina pectoris; I10 Essential (primary) hypertension; G47.33 Obstructive sleep apnea (adult) (pediatric); K21.9 Gastro-esophageal reflux disease without esophagitis; M25.511 Pain in right shoulder; F17.210 Nicotine dependence, cigarettes, uncomplicated; E11.9 Type 2 diabetes mellitus without complications; R79.89 Other specified abnormal findings of blood chemistry; Z96.651 Presence of right artificial knee joint; Z79.899 Other long term (current) drug therapy; Z71.6 Tobacco abuse counseling; Z11.52 Encounter for screening for COVID-19
CPT/HCPCS: 0241U; 36415; 36416; 36600; 71045; 80048; 80053; 80162; 80202; 82805; 83036; 83605; 83735; 83880; 84145; 84484; 85025; 85610; 85730; 87040; 87081; 87449; 93005; 93010; 93306; 94640; 94644; 94660; 94664; 96365; 96366; 96375; J0282; J0692; J1160; J1200; J1650; J1815; J1940; J2272; J2920; J2930; J3370; J3475; J3490; J7070; J7611; J7620; Q0163

== ENCOUNTER 2024-01-08 07:38 | Inpatient (IN) | payer OTHER, MEDICAID ==
[2024-01-08 08:39] LABS: #Eosinphils 0.1 thou/uL (0.0-0.7); #Monocytes 0.6 thou/uL (0.11-0.59); #Neutrophils 4.7 thou/uL (1.40-6.50); %Basophils 0.5 % (0.0-1.0); %Eosinophils 0.8 % (0.0-10.0); %Monocytes 8.8 % (0.0-10.0); %Neutrophils 74.6 % (42.0-75.0); Hematocrit 39.6 % (42.0-52.0); Hemoglobin 12.4 g/dL (14.0-18.0); Mean Corpuscular HGB CONC 31.3 g/dL (32.0-36.0); Mean Corpuscular Volume 95.7 fl (78.0-98.0); Mean Platelet Volume 11.2 fL (7.4-10.4); Platelet Count 197 10x3/uL (130-400); Red Blood Cell (RBC) Count 4.14 mill/uL (4.70-6.10); White Blood Cell (WBC) Count 6.3 10x3/uL (4.8-10.8)
[2024-01-08 08:58] LABS: ALT (SGPT) 33 U/L (8-55); AST (SGOT) 15 U/L (5-34); Albumin 3.5 g/dL (3.5-5.0); Alkaline Phosphatase 81 U/L (40-110); Anion Gap 13 mmol/L (10-20); BUN (Urea Nitrogen) 13 mg/dL (8.4-25.7); Bilirubin, Total 0.2 mg/dL (0.2-1.2); Calc. Creatinine Clearance 0 mL/min (70-130); Calcium 8.9 mg/dL (7.8-10.44); Carbon Dioxide 31 mmol/L (22-29); Chloride 94 mmol/L (98-107); Estimated GFR 85; Globulin 2.7 g/dL (2.4-3.5); Glucose 298 mg/dL (70-105); Lipase 35 U/L (8-78); Potassium 4.4 mmol/L (3.5-5.1); Protein, Total 6.2 g/dL (6.0-8.3); Sodium 134 mmol/L (136-145)
[2024-01-08 09:00] LABS: Troponin I Less than 0.010 ng/mL (< 0.028)
[2024-01-08 09:17] LABS: Actual Bicarbonate (HCO3v) 34.6 mEq/L (22-28); Base Excess 7.9 mEq/L (-2.0 to +3.0); Calcium, Ionized (venous) 1.08 mmol/L (1.16-1.32); Chloride (VBG) 93 mmol/L (98-106); Hematocrit-VBG 39 % (42.0-52.0); Hemoglobin (Hb) 13.3 g/dL (13.1-17.2); Potassium (VBG) 4.43 mmol/L (3.70-5.30); Sodium 133 mmol/L (133-146); pH (venous) 7.395 (7.32-7.43)
[2024-01-08] MEDS ORDERED: Furosemide 40 MG (4 mL) VIAL ONE (09:20)
[2024-01-08] MEDS ORDERED: Magnesium 2 GM/50 ML BAG (IN WATER) ONE (09:20)
[2024-01-08] MEDS ORDERED: methylPREDNISolone Sod Succ/PF 125 MG/2 ML VIAL ONE (09:21)
[2024-01-08 09:31] LABS: PTT 46.6 sec (22.9-36.1)
[2024-01-08 09:43] LABS: Prothrombin Time 13.1 sec (12.0-14.7)
[2024-01-08] MEDS ORDERED: Ondansetron PF 4 MG/2 ML Vial ONE (10:07)
[2024-01-08] MEDS ORDERED: Morphine 4 MG/ML VIAL ONE (10:07)
[2024-01-08] MEDS ORDERED: Ondansetron ODT 4 MG TAB PO PRN (11:43)
[2024-01-08] MEDS ORDERED: Ondansetron PF 4 MG/2 ML Vial IVP PRN (11:43)
[2024-01-08] MEDS ORDERED: Albuterol 200 PUFF (6.7GM INHALER) INH PRN (11:54)
[2024-01-08] MEDS ORDERED: Ipratropium/Albuterol 3 ML NEB ONE ×2 (11:56→12:01)
[2024-01-08] MEDS ORDERED: methylPREDNISolone Sod Succ 40 MG VIAL ONE (12:35)
[2024-01-08] MEDS ORDERED: cefTRIAXone (ROCEPHIN) 1 GM VIAL ONE (12:35)
[2024-01-08] MEDS: cefTRIAXone\\ROCEPHIN 1 GM in Sodium Chloride 0.9% 100 ML IVPB SCH (12:44)
[2024-01-08] MEDS: methylPREDNISolone Sod Succ 40 MG VIAL IVP SCH (12:44)
[2024-01-08 12:52] LABS: Troponin I 0.027 ng/mL (< 0.028)
[2024-01-08] MEDS ORDERED: Ipratropium/Albuterol 3 ML NEB NEB SCH (13:00)
[2024-01-08] MEDS ORDERED: Nicotine 14 MG PATCH TD SCH (13:00)
[2024-01-08 13:14] LABS: Hemoglobin A1c 8.4 % (4.0-6.0)
[2024-01-08] MEDS: Ipratropium/Albuterol 3 ML NEB NEB SCH (14:06)
[2024-01-08] MEDS ORDERED: Azithromycin 500 MG VIAL ONE (15:07)
[2024-01-08] MEDS: Azithromycin 500 MG in Sodium Chloride 0.9% 250 ML 250 ML IVPB SCH (15:10)
[2024-01-08 17:09] LABS: Troponin I 0.013 ng/mL (< 0.028)
[2024-01-08 18:48] VITALS: BMI 60.5
[2024-01-08] MEDS ORDERED: Amiodarone 200 MG TAB PO SCH ×2 (21:00)
[2024-01-08] MEDS: Apixaban 5 MG TAB PO SCH (21:42)
[2024-01-08] MEDS: Sacubitril 24MG/Valsartan 26 MG TAB PO SCH (21:42)
[2024-01-08] MEDS: Acetaminophen 325 MG TAB PO PRN (21:47)
[2024-01-08] MEDS: Lorazepam 0.5 MG TAB PO PRN (21:47)
[2024-01-08] MEDS ORDERED: Dextrose 50% Abboject 50 ML SYRINGE SLOW IVP PRN (22:18)
[2024-01-08] MEDS ORDERED: Dextrose 5% in Water 1,000 ML IV PRN (22:18)
[2024-01-08] MEDS ORDERED: Glucagon 1 MG/ML KIT IM PRN (22:18)
[2024-01-09] MEDS: Ketorolac Tromethamine 30 MG (1 mL) VIAL IVP SCH (00:05)
[2024-01-09] MEDS: HumaLOG 300 UNITS/3 ML VIAL SC PRN ×3 (00:25→18:39)
[2024-01-09 04:34] LABS: #Monocytes 0.2 thou/uL (0.11-0.59); %Basophils 0.1 % (0.0-1.0); %Monocytes 2.5 % (0.0-10.0); %Neutrophils 90.2 % (42.0-75.0); Hematocrit 39.7 % (42.0-52.0); Hemoglobin 12.5 g/dL (14.0-18.0); Mean Corpuscular HGB CONC 31.5 g/dL (32.0-36.0); Mean Corpuscular Hemoglobin 29.8 pg (27.0-31.0); Mean Corpuscular Volume 94.7 fl (78.0-98.0); Mean Platelet Volume 10.9 fL (7.4-10.4); Platelet Count 207 10x3/uL (130-400); RBC Distribution Width 15.4 % (11.5-14.5); Red Blood Cell (RBC) Count 4.19 mill/uL (4.70-6.10); White Blood Cell (WBC) Count 7.8 10x3/uL (4.8-10.8)
[2024-01-09 05:08] LABS: Anion Gap 16 mmol/L (10-20); BUN (Urea Nitrogen) 19 mg/dL (8.4-25.7); Calc. Creatinine Clearance 190 mL/min (70-130); Calcium 9.1 mg/dL (7.8-10.44); Carbon Dioxide 33 mmol/L (22-29); Chloride 89 mmol/L (98-107); Estimated GFR 78; Glucose 322 mg/dL (70-105); Potassium 4.9 mmol/L (3.5-5.1); Sodium 133 mmol/L (136-145)
[2024-01-09] MEDS: Amiodarone 200 MG TAB PO SCH (10:02)
[2024-01-09] MEDS: Atorvastatin Calcium 40 MG TAB PO SCH (10:02)
[2024-01-09] MEDS: Nicotine 21 MG PATCH TD SCH (10:02)
[2024-01-09] MEDS: Furosemide 40 MG TAB PO SCH (10:02)
[2024-01-09] MEDS: Morphine 2 MG/ML VIAL SLOW IVP PRN (10:22)
[2024-01-09] MEDS ORDERED: HumaLOG 300 UNITS/3 ML VIAL SC SCH (17:00)
[2024-01-10 05:32] LABS: #Monocytes 0.4 thou/uL (0.11-0.59); #Neutrophils 8.7 thou/uL (1.40-6.50); %Basophils 0.2 % (0.0-1.0); %Lymphocytes 4.1 % (21.0-51.0); %Neutrophils 89.9 % (42.0-75.0); Hematocrit 40.7 % (42.0-52.0); Hemoglobin 12.7 g/dL (14.0-18.0); Mean Corpuscular HGB CONC 31.2 g/dL (32.0-36.0); Mean Corpuscular Hemoglobin 28.9 pg (27.0-31.0); Mean Corpuscular Volume 92.7 fl (78.0-98.0); Mean Platelet Volume 11.3 fL (7.4-10.4); Platelet Count 239 10x3/uL (130-400); Red Blood Cell (RBC) Count 4.39 mill/uL (4.70-6.10); White Blood Cell (WBC) Count 9.7 10x3/uL (4.8-10.8)
[2024-01-10 06:05] LABS: ALT (SGPT) 27 U/L (8-55); AST (SGOT) 10 U/L (5-34); Albumin 3.9 g/dL (3.5-5.0); Alkaline Phosphatase 74 U/L (40-110); Anion Gap 14 mmol/L (10-20); BUN (Urea Nitrogen) 23 mg/dL (8.4-25.7); Bilirubin, Total 0.3 mg/dL (0.2-1.2); Calc. Creatinine Clearance 188 mL/min (70-130); Calcium 9.1 mg/dL (7.8-10.44); Carbon Dioxide 30 mmol/L (22-29); Chloride 93 mmol/L (98-107); Estimated GFR 77; Globulin 2.6 g/dL (2.4-3.5); Glucose 323 mg/dL (70-105); Potassium 4.6 mmol/L (3.5-5.1); Protein, Total 6.5 g/dL (6.0-8.3); Sodium 132 mmol/L (136-145)
[2024-01-10] MEDS: methylPREDNISolone Sod Succ 40 MG VIAL IVP SCH (20:11)
[2024-01-11] MEDS: hydrALAZINE 25 MG TAB PO PRN (00:09)
[2024-01-11 05:39] LABS: #Monocytes 0.6 thou/uL (0.11-0.59); #Neutrophils 8.6 thou/uL (1.40-6.50); %Basophils 0.2 % (0.0-1.0); %Lymphocytes 5.7 % (21.0-51.0); %Monocytes 6.3 % (0.0-10.0); %Neutrophils 85.6 % (42.0-75.0); Hematocrit 40.9 % (42.0-52.0); Hemoglobin 12.9 g/dL (14.0-18.0); Mean Corpuscular HGB CONC 31.5 g/dL (32.0-36.0); Mean Corpuscular Hemoglobin 29.5 pg (27.0-31.0); Mean Corpuscular Volume 93.6 fl (78.0-98.0); Mean Platelet Volume 11.3 fL (7.4-10.4); Platelet Count 233 10x3/uL (130-400); RBC Distribution Width 16.2 % (11.5-14.5); Red Blood Cell (RBC) Count 4.37 mill/uL (4.70-6.10)
[2024-01-11 06:21] LABS: ALT (SGPT) 26 U/L (8-55); AST (SGOT) 11 U/L (5-34); Albumin 3.8 g/dL (3.5-5.0); Alkaline Phosphatase 65 U/L (40-110); Anion Gap 15 mmol/L (10-20); BUN (Urea Nitrogen) 24 mg/dL (8.4-25.7); Bilirubin, Total 0.4 mg/dL (0.2-1.2); Calc. Creatinine Clearance 197 mL/min (70-130); Calcium 8.9 mg/dL (7.8-10.44); Carbon Dioxide 28 mmol/L (22-29); Chloride 95 mmol/L (98-107); Estimated GFR 82; Globulin 2.6 g/dL (2.4-3.5); Glucose 271 mg/dL (70-105); Potassium 4.7 mmol/L (3.5-5.1); Protein, Total 6.4 g/dL (6.0-8.3); Sodium 133 mmol/L (136-145)
[2024-01-11] MEDS: metFORMIN 500 MG TAB PO SCH (17:48)
[2024-01-11] MEDS: Budesonide 0.25 MG/2 ML NEB INH SCH (19:06)
[2024-01-12 04:38] LABS: #Monocytes 0.5 thou/uL (0.11-0.59); #Neutrophils 8.9 thou/uL (1.40-6.50); %Basophils 0.1 % (0.0-1.0); %Lymphocytes 5.3 % (21.0-51.0); %Monocytes 5.1 % (0.0-10.0); %Neutrophils 86.9 % (42.0-75.0); Hematocrit 40.9 % (42.0-52.0); Hemoglobin 13.3 g/dL (14.0-18.0); Mean Corpuscular HGB CONC 32.5 g/dL (32.0-36.0); Mean Corpuscular Hemoglobin 30.2 pg (27.0-31.0); Mean Corpuscular Volume 92.7 fl (78.0-98.0); Mean Platelet Volume 11.3 fL (7.4-10.4); Platelet Count 246 10x3/uL (130-400); RBC Distribution Width 16.2 % (11.5-14.5); Red Blood Cell (RBC) Count 4.41 mill/uL (4.70-6.10); White Blood Cell (WBC) Count 10.3 10x3/uL (4.8-10.8)
[2024-01-12 04:55] LABS: ALT (SGPT) 24 U/L (8-55); AST (SGOT) 11 U/L (5-34); Albumin 3.7 g/dL (3.5-5.0); Alkaline Phosphatase 61 U/L (40-110); Anion Gap 17 mmol/L (10-20); BUN (Urea Nitrogen) 30 mg/dL (8.4-25.7); Bilirubin, Total 0.3 mg/dL (0.2-1.2); Calc. Creatinine Clearance 176 mL/min (70-130); Calcium 8.6 mg/dL (7.8-10.44); Carbon Dioxide 25 mmol/L (22-29); Chloride 94 mmol/L (98-107); Estimated GFR 71; Globulin 2.4 g/dL (2.4-3.5); Glucose 312 mg/dL (70-105); Potassium 4.9 mmol/L (3.5-5.1); Protein, Total 6.1 g/dL (6.0-8.3); Sodium 131 mmol/L (136-145)
[2024-01-12] MEDS: metFORMIN 500 MG TAB PO SCH ×2 (08:51→09:57)
[2024-01-12] MEDS: predniSONE 20 MG TAB PO SCH (08:53)
[2024-01-12 12:13] VITALS: BP 139/67; TEMP 98.3
[2024-01-13] MEDS ORDERED: predniSONE 20 MG TAB PO SCH ×2 (08:00)
== END 2024-01-12 12:55 | disposition home or self-care (01) | DRG 189 ==
LOC: ERS 07:38 → ERHOLD 11:40 → 2SW 17:53 → OBSVTOIN 01-09 15:53
PROVIDERS: ADMIT Family Medicine; ATTEND Internal Medicine
PROC: 5A09457 Assistance with Respiratory Ventilation, 24-96 Consecutive Hours, Continuous Positive Airway Pressure (ICD-10-PCS; principal; 2024-01-10)
DX: J96.21 Acute and chronic respiratory failure with hypoxia (principal); J44.1 Chronic obstructive pulmonary disease with (acute) exacerbation; Z68.43 Body mass index [BMI] 50.0-59.9, adult; I50.22 Chronic systolic (congestive) heart failure; E87.1 Hypo-osmolality and hyponatremia; M94.0 Chondrocostal junction syndrome [Tietze]; K21.9 Gastro-esophageal reflux disease without esophagitis; E78.5 Hyperlipidemia, unspecified; F43.10 Post-traumatic stress disorder, unspecified; E66.01 Morbid (severe) obesity due to excess calories; I48.91 Unspecified atrial fibrillation; F17.210 Nicotine dependence, cigarettes, uncomplicated; I25.10 Atherosclerotic heart disease of native coronary artery without angina pectoris; Z96.651 Presence of right artificial knee joint; I11.0 Hypertensive heart disease with heart failure; T38.0X5A Adverse effect of glucocorticoids and synthetic analogues, initial encounter; E09.65 Drug or chemical induced diabetes mellitus with hyperglycemia; Z71.6 Tobacco abuse counseling; Z99.81 Dependence on supplemental oxygen; Z79.51 Long term (current) use of inhaled steroids; I25.2 Old myocardial infarction; Z79.01 Long term (current) use of anticoagulants; Z79.899 Other long term (current) drug therapy; Z98.890 Other specified postprocedural states
CPT/HCPCS: 36415; 36416; 71045; 71275; 80048; 80053; 82805; 83036; 83690; 83880; 84484; 85025; 85379; 85610; 85730; 87040; 93005; 94640; 94660; 94760; J0456; J0696; J1815; J1885; J1940; J2270; J2272; J2405; J2920; J2930; J3475; J3490; J7050; J7512; J7620; J7626

== ENCOUNTER 2024-05-08 18:20 | Inpatient (IN) | payer MEDICARE, OTHER ==
[2024-05-08] MEDS ORDERED: Nitroglycerin 2% Ointment 1 INCH/1 GM Packet ONE (18:43)
[2024-05-08 19:20] LABS: #Basophils 0.04 10x3/uL (0.0-0.2); %Basophils 0.5 % (0.0-1.0); %Eosinophils 2.7 % (0.0-10.0); %Lymphocytes 17.7 % (21.0-51.0); %Monocytes 6.7 % (0.0-10.0); %Neutrophils 72.1 % (42.0-75.0); Hematocrit 42.5 % (42.0-52.0); Hemoglobin 13.6 g/dL (14.0-18.0); Mean Corpuscular Hemoglobin 29.6 pg (27.0-31.0); Mean Corpuscular Volume 92.4 fL (78.0-98.0); Mean Platelet Volume 10.9 fL (7.4-10.4); Platelet Count 209 10x3/uL (130-400); RBC Distribution Width 14.3 % (11.5-14.5)
[2024-05-08 19:38] LABS: ALT (SGPT) 33 U/L (8-55); AST (SGOT) 23 U/L (5-34); Albumin 3.4 g/dL (3.5-5.0); Alkaline Phosphatase 63 U/L (40-110); Anion Gap 17 mmol/L (10-20); BUN (Urea Nitrogen) 11 mg/dL (8.4-25.7); Bilirubin, Total 0.2 mg/dL (0.2-1.2); Calc. Creatinine Clearance 0 mL/min (70-130); Calcium 9.2 mg/dL (7.8-10.44); Carbon Dioxide 23 mmol/L (22-29); Chloride 100 mmol/L (98-107); Estimated GFR 76; Globulin 3.2 g/dL (2.4-3.5); Glucose 113 mg/dL (70-105); Lipase 18 U/L (8-78); Potassium 4.1 mmol/L (3.5-5.1); Protein, Total 6.6 g/dL (6.0-8.3); Sodium 136 mmol/L (136-145)
[2024-05-08 19:42] LABS: Troponin I Less than 0.010 ng/mL (< 0.028)
[2024-05-08] MEDS ORDERED: Ondansetron PF 4 MG/2 ML Vial IVP PRN (21:14)
[2024-05-08] MEDS ORDERED: Ondansetron ODT 4 MG TAB PO PRN (21:14)
[2024-05-08] MEDS ORDERED: Morphine 4 MG/ML VIAL ONE (21:15)
[2024-05-08] MEDS ORDERED: hydrALAZINE 25 MG TAB PO PRN (21:23)
[2024-05-08 23:22] VITALS: BMI 59.7
[2024-05-09] MEDS: Acetaminophen 325 MG TAB PO PRN (00:13)
[2024-05-09] MEDS: ALPRAZolam 1 MG TAB PO PRN (01:25)
[2024-05-09] MEDS: Gabapentin 400 MG CAP PO SCH ×2 (01:26→08:35)
[2024-05-09] MEDS: Apixaban 5 MG TAB PO SCH ×2 (01:26→08:35)
[2024-05-09] MEDS: Morphine 2 MG/ML VIAL SLOW IVP PRN (01:29)
[2024-05-09] MEDS: Ipratropium/Albuterol 3 ML NEB NEB PRN (01:46)
[2024-05-09] MEDS: Ipratropium Bromide 2.5 ml Neb NEB SCH (01:49)
[2024-05-09 02:22] LABS: Troponin I Less than 0.010 ng/mL (< 0.028)
[2024-05-09 04:47] LABS: #Basophils 0.03 10x3/uL (0.0-0.2); %Basophils 0.4 % (0.0-1.0); %Eosinophils 3.4 % (0.0-10.0); %Lymphocytes 16.6 % (21.0-51.0); %Monocytes 7.6 % (0.0-10.0); %Neutrophils 71.4 % (42.0-75.0); Hematocrit 41.3 % (42.0-52.0); Hemoglobin 12.8 g/dL (14.0-18.0); Mean Corpuscular Hemoglobin 29.3 pg (27.0-31.0); Mean Corpuscular Volume 94.5 fL (78.0-98.0); Mean Platelet Volume 11.2 fL (7.4-10.4); Platelet Count 200 10x3/uL (130-400); RBC Distribution Width 14.2 % (11.5-14.5); Red Blood Cell (RBC) Count 4.37 mill/uL (4.70-6.10)
[2024-05-09 05:09] LABS: Troponin I 0.011 ng/mL (< 0.028)
[2024-05-09 05:13] LABS: Anion Gap 13 mmol/L (10-20); BUN (Urea Nitrogen) 13 mg/dL (8.4-25.7); Calc. Creatinine Clearance 174 mL/min (70-130); Calcium 9.1 mg/dL (7.8-10.44); Carbon Dioxide 30 mmol/L (22-29); Cardiac Risk 4.1 (Less than 4.5); Chloride 98 mmol/L (98-107); Cholesterol 207 mg/dl (< 200 Desired); Estimated GFR 72; Glucose 113 mg/dL (70-105); HDL Cholesterol 50 mg/dL (>60 Neg Risk); LDL Cholesterol, Calculated 128 mg/dL; Potassium 4.4 mmol/L (3.5-5.1); Sodium 137 mmol/L (136-145); Triglycerides 146 mg/dL (Less than 150)
[2024-05-09] MEDS: Furosemide 40 MG TAB PO SCH (08:35)
[2024-05-09] MEDS: Pantoprazole DR 40 MG TAB PO SCH (08:35)
[2024-05-09] MEDS: Varenicline Tartrate 0.5 MG TAB PO SCH (08:35)
[2024-05-09] MEDS: Aspirin Chewable 81 MG TAB PO SCH (08:35)
[2024-05-09] MEDS: Atorvastatin Calcium 40 MG TAB PO SCH (08:35)
[2024-05-09] MEDS: Amiodarone 200 MG TAB PO SCH (08:35)
[2024-05-09] MEDS ORDERED: Regadenoson 0.4 MG/5 ML SYRINGE ONE (12:06)
[2024-05-09] MEDS: Sacubitril 24MG/Valsartan 26 MG TAB PO SCH (14:34)
[2024-05-09] MEDS: Ipratropium/Albuterol 3 ML NEB NEB SCH (18:30)
[2024-05-09] MEDS: Mometasone 100 MCG/PUFF (1 INHALER) INH SCH (18:31)
[2024-05-10] MEDS: Nitroglycerin 0.4 MG TAB (25 Tab Bottle) SL PRN (00:52)
[2024-05-10] MEDS ORDERED: Non-Formulary Item 1 EACH (Fluticasone/Umeclidin/Vilanter [Trelegy Ellipta 200-62.5-25] 1 INH SCH (09:00)
[2024-05-10] MEDS ORDERED: Communication Order-Pharmacy FS SCH (14:30)
[2024-05-10] MEDS: Sodium Chloride 0.9% 1,000 ML IV SCH (15:58)
[2024-05-10] MEDS: traMADol HCl 50 MG TAB PO PRN (21:59)
[2024-05-11] MEDS ORDERED: Verapamil 5 MG/2 ML VIAL ONE (13:59)
[2024-05-11] MEDS ORDERED: fentaNYL 50 mcg/mL 1 mL Vial ONE (13:59)
[2024-05-11] MEDS ORDERED: Heparin 10,000 UNITS/ 10 ML VIAL ONE ×2 (14:00→14:44)
[2024-05-11] MEDS ORDERED: Lidocaine 1% (PF) 30 ML VIAL ONE (14:00)
[2024-05-11] MEDS ORDERED: Midazolam HCl 2 mg/2 ml Vial ONE (14:00)
[2024-05-11] MEDS ORDERED: Nitroglycerin 50 MG/250 ML BOT 250 ML ONE (14:00)
[2024-05-11] MEDS ORDERED: TICAGRELOR 90 MG TABLET ONE (14:58)
[2024-05-11] MEDS: Sodium Chloride 0.9% 500 ML IV SCH (16:12)
[2024-05-12 05:44] LABS: #Basophils 0.03 10x3/uL (0.0-0.2); %Basophils 0.4 % (0.0-1.0); %Eosinophils 2.7 % (0.0-10.0); %Lymphocytes 10.2 % (21.0-51.0); %Neutrophils 79.1 % (42.0-75.0); Hematocrit 38.4 % (42.0-52.0); Hemoglobin 12.2 g/dL (14.0-18.0); Mean Corpuscular HGB CONC 31.8 g/dL (32.0-36.0); Mean Corpuscular Volume 91.4 fL (78.0-98.0); Mean Platelet Volume 11.4 fL (7.4-10.4); Platelet Count 194 10x3/uL (130-400); RBC Distribution Width 14.5 % (11.5-14.5)
[2024-05-12 05:57] LABS: ALT (SGPT) 26 U/L (8-55); AST (SGOT) 15 U/L (5-34); Albumin 2.9 g/dL (3.5-5.0); Alkaline Phosphatase 51 U/L (40-110); Anion Gap 14 mmol/L (10-20); BUN (Urea Nitrogen) 10 mg/dL (8.4-25.7); Bilirubin, Total 0.3 mg/dL (0.2-1.2); Calc. Creatinine Clearance 238 mL/min (70-130); Calcium 8.9 mg/dL (7.8-10.44); Carbon Dioxide 23 mmol/L (22-29); Chloride 101 mmol/L (98-107); Estimated GFR 102; Globulin 3.2 g/dL (2.4-3.5); Glucose 134 mg/dL (70-105); Potassium 4.7 mmol/L (3.5-5.1); Protein, Total 6.1 g/dL (6.0-8.3); Sodium 133 mmol/L (136-145)
[2024-05-12] MEDS: Clopidogrel Bisulfate 75 MG TAB PO SCH (08:34)
[2024-05-12 10:10] VITALS: BP 136/82; TEMP 97.6
== END 2024-05-12 12:19 | disposition home or self-care (01) | DRG 287 ==
LOC: ERS 18:20 → 2NO 20:27 → OBSVTOIN 05-09 16:01
PROVIDERS: ADMIT Student in an Organized Health Care Education/Training Program; ATTEND Internal Medicine
PROC: 4A023N7 Measurement of Cardiac Sampling and Pressure, Left Heart, Percutaneous Approach (ICD-10-PCS; principal; 2024-05-11)
PROC: B2111ZZ Fluoroscopy of Multiple Coronary Arteries using Low Osmolar Contrast (ICD-10-PCS; 2024-05-11)
PROC: B2151ZZ Fluoroscopy of Left Heart using Low Osmolar Contrast (ICD-10-PCS; 2024-05-11)
DX: R07.89 Other chest pain (principal); I50.32 Chronic diastolic (congestive) heart failure; Z68.43 Body mass index [BMI] 50.0-59.9, adult; J96.11 Chronic respiratory failure with hypoxia; I25.10 Atherosclerotic heart disease of native coronary artery without angina pectoris; I11.0 Hypertensive heart disease with heart failure; I25.2 Old myocardial infarction; E78.5 Hyperlipidemia, unspecified; J44.9 Chronic obstructive pulmonary disease, unspecified; K21.9 Gastro-esophageal reflux disease without esophagitis; I48.0 Paroxysmal atrial fibrillation; M54.9 Dorsalgia, unspecified; M19.012 Primary osteoarthritis, left shoulder; G89.29 Other chronic pain; F41.8 Other specified anxiety disorders; F43.10 Post-traumatic stress disorder, unspecified; E66.01 Morbid (severe) obesity due to excess calories; F17.210 Nicotine dependence, cigarettes, uncomplicated; Z79.899 Other long term (current) drug therapy; Z79.2 Long term (current) use of antibiotics; Z71.6 Tobacco abuse counseling
CPT/HCPCS: 36415; 36416; 71045; 78452; 80048; 80053; 80061; 83690; 83880; 84484; 85025; 85347; 93005; 93010; 93017; 94640; 96374; 96376; A9502; C1769; C1874; C1887; C1894; G0378; J1644; J2001; J2250; J2270; J2272; J2785; J3010; J7030; J7050; J7620

== ENCOUNTER 2024-05-19 22:14 | Inpatient (IN) | payer OTHER ==
[~2024-05-19 22:14] MED LIST changes: -Iopamidol-370 76% 500 ML 1 ML ONE; +Iopamidol-370 76% 500 ML MDV (1 ML CHARGE) ONE
[2024-05-19 22:46] LABS: #Basophils 0.03 10x3/uL (0.0-0.2); %Basophils 0.3 % (0.0-1.0); %Eosinophils 2.7 % (0.0-10.0); %Lymphocytes 13.3 % (21.0-51.0); %Monocytes 7.5 % (0.0-10.0); %Neutrophils 75.7 % (42.0-75.0); Hematocrit 37.9 % (42.0-52.0); Hemoglobin 12.4 g/dL (14.0-18.0); Mean Corpuscular HGB CONC 32.7 g/dL (32.0-36.0); Mean Corpuscular Hemoglobin 29.4 pg (27.0-31.0); Mean Corpuscular Volume 89.8 fL (78.0-98.0); Platelet Count 242 10x3/uL (130-400); RBC Distribution Width 14.2 % (11.5-14.5); Red Blood Cell (RBC) Count 4.22 mill/uL (4.70-6.10)
[2024-05-19 23:01] LABS: ALT (SGPT) 30 U/L (8-55); AST (SGOT) 17 U/L (5-34); Albumin 3.1 g/dL (3.5-5.0); Alkaline Phosphatase 61 U/L (40-110); Anion Gap 16 mmol/L (10-20); BUN (Urea Nitrogen) 10 mg/dL (8.4-25.7); Bilirubin, Total 0.2 mg/dL (0.2-1.2); Calc. Creatinine Clearance 0 mL/min (70-130); Calcium 9.2 mg/dL (7.8-10.44); Carbon Dioxide 25 mmol/L (22-29); Chloride 99 mmol/L (98-107); Estimated GFR 104; Glucose 114 mg/dL (70-105); Potassium 4.3 mmol/L (3.5-5.1); Protein, Total 6.1 g/dL (6.0-8.3); Sodium 136 mmol/L (136-145)
[2024-05-19 23:06] LABS: Troponin I Less than 0.010 ng/mL (< 0.028)
[2024-05-19] MEDS ORDERED: Nitroglycerin 2% Ointment 1 INCH/1 GM Packet ONE (23:23)
[2024-05-20] MEDS ORDERED: Acetaminophen 650 MG Suppository PR PRN (00:39)
[2024-05-20] MEDS ORDERED: hydrALAZINE 25 MG TAB PO PRN (01:02)
[2024-05-20] MEDS ORDERED: Albuterol 200 PUFF (6.7GM INHALER) INH PRN (01:02)
[2024-05-20 02:00] LABS: Magnesium 1.8 mg/dL (1.6-2.6)
[2024-05-20] MEDS ORDERED: Electrolyte Replacement Protocol FS SCH (02:00)
[2024-05-20 02:05] LABS: Troponin I Less than 0.010 ng/mL (< 0.028)
[2024-05-20 02:11] VITALS: BMI 59.6
[2024-05-20] MEDS: traMADol HCl 50 MG TAB PO PRN (02:25)
[2024-05-20] MEDS: Furosemide 40 MG (4 mL) VIAL SLOW IVP SCH (02:25)
[2024-05-20] MEDS: Magnesium 2 GM/50 ML(in water) 2 GM in Premix 1 BAG IVPB SCH (02:26)
[2024-05-20] MEDS: Magnesium Sulfate 2 GM in Sodium Chloride 0.9% 250 ML 250 ML IVPB SCH (02:57)
[2024-05-20] MEDS: Nitroglycerin 2% Ointment 1 INCH/1 GM Packet TOP SCH (05:45)
[2024-05-20 06:07] LABS: Hemoglobin A1c 5.9 % (4.0-6.0)
[2024-05-20 06:19] LABS: Cardiac Risk 3.8 (Less than 4.5); Troponin I Less than 0.010 ng/mL (< 0.028)
[2024-05-20] MEDS: Ipratropium/Albuterol 3 ML NEB NEB SCH (07:39)
[2024-05-20] MEDS: Mometasone 100 MCG HFA INHALER (RT USE) INH SCH (07:40)
[2024-05-20] MEDS: Nitroglycerin 0.4 MG TAB (25 Tab Bottle) SL PRN (08:46)
[2024-05-20] MEDS: Pantoprazole DR 40 MG TAB PO SCH (08:50)
[2024-05-20] MEDS ORDERED: Apixaban 5 MG TAB PO SCH (09:00)
[2024-05-20] MEDS ORDERED: Clopidogrel Bisulfate 75 MG TAB PO SCH (09:00)
[2024-05-20] MEDS ORDERED: Non-Formulary Item 1 EACH (Fluticasone/Umeclidin/Vilanter [Trelegy Ellipta 200-62.5-25] 1 INH SCH (09:00)
[2024-05-20] MEDS: Sacubitril 24MG/Valsartan 26 MG TAB PO SCH (11:00)
[2024-05-20] MEDS: metFORMIN 500 MG TAB PO SCH (11:00)
[2024-05-20] MEDS: Gabapentin 400 MG CAP PO SCH (11:00)
[2024-05-20] MEDS: Amiodarone 200 MG TAB PO SCH (11:01)
[2024-05-20] MEDS: Famotidine 20 MG TAB PO SCH (11:01)
[2024-05-20] MEDS: Furosemide 40 MG TAB PO SCH (11:01)
[2024-05-20] MEDS: Atorvastatin Calcium 40 MG TAB PO SCH (11:01)
[2024-05-20] MEDS: Aspirin Chewable 81 MG TAB PO SCH (11:02)
[2024-05-20] MEDS ORDERED: Ondansetron PF 4 MG/2 ML Vial IVP PRN (12:00)
[2024-05-20] MEDS: ALPRAZolam 1 MG TAB PO SCH (12:12)
[2024-05-20] MEDS: Morphine 4 MG/ML VIAL SLOW IVP PRN (12:12)
[2024-05-20] MEDS: Lidocaine 4% Patch TD SCH (16:23)
[2024-05-20] MEDS: Enoxaparin 60 MG (0.6 mL) SYRINGE SC SCH (21:53)
[2024-05-20] MEDS: Enoxaparin 120 MG/0.8 ML SYRINGE SC SCH (21:53)
[2024-05-21] MEDS: ALPRAZolam 1 MG TAB PO PRN (02:57)
[2024-05-21] MEDS: LIDOCAINE Patch Removal TOP SCH (02:57)
[2024-05-21 04:01] LABS: #Basophils 0.03 10x3/uL (0.0-0.2); %Basophils 0.4 % (0.0-1.0); %Eosinophils 3.9 % (0.0-10.0); %Lymphocytes 13.7 % (21.0-51.0); %Neutrophils 72.3 % (42.0-75.0); Hematocrit 39.7 % (42.0-52.0); Hemoglobin 12.2 g/dL (14.0-18.0); Mean Corpuscular HGB CONC 30.7 g/dL (32.0-36.0); Mean Corpuscular Hemoglobin 28.8 pg (27.0-31.0); Mean Corpuscular Volume 93.9 fL (78.0-98.0); Mean Platelet Volume 11.2 fL (7.4-10.4); Platelet Count 229 10x3/uL (130-400); RBC Distribution Width 14.6 % (11.5-14.5); Red Blood Cell (RBC) Count 4.23 mill/uL (4.70-6.10)
[2024-05-21 04:27] LABS: Anion Gap 13 mmol/L (10-20); BUN (Urea Nitrogen) 14 mg/dL (8.4-25.7); Calc. Creatinine Clearance 192 mL/min (70-130); Calcium 8.9 mg/dL (7.8-10.44); Carbon Dioxide 30 mmol/L (22-29); Chloride 97 mmol/L (98-107); Estimated GFR 81; Glucose 116 mg/dL (70-105); Magnesium 2.2 mg/dL (1.6-2.6); Potassium 3.7 mmol/L (3.5-5.1); Sodium 136 mmol/L (136-145)
[2024-05-21] MEDS ORDERED: SEMAGLUTIDE 1 MG/0.75 ML SC SCH (09:00)
[2024-05-21] MEDS: Acetaminophen 325 MG TAB PO PRN (10:22)
[2024-05-21] MEDS: Ketorolac Tromethamine 30 MG (1 mL) VIAL IVP SCH (23:56)
[2024-05-22] MEDS: Ipratropium/Albuterol 3 ML NEB NEB PRN (00:08)
[2024-05-22 08:27] VITALS: BP 123/81; TEMP 98
[2024-05-22 11:42] LABS: Anion Gap 14 mmol/L (10-20); BUN (Urea Nitrogen) 14 mg/dL (8.4-25.7); Calc. Creatinine Clearance 195 mL/min (70-130); Calcium 8.8 mg/dL (7.8-10.44); Carbon Dioxide 23 mmol/L (22-29); Chloride 98 mmol/L (98-107); Estimated GFR 83; Glucose 103 mg/dL (70-105); Magnesium 2.1 mg/dL (1.6-2.6); Potassium 4.9 mmol/L (3.5-5.1); Sodium 130 mmol/L (136-145)
[2024-05-22 11:45] LABS: #Basophils 0.05 10x3/uL (0.0-0.2); %Basophils 0.6 % (0.0-1.0); %Eosinophils 3.2 % (0.0-10.0); %Lymphocytes 10.5 % (21.0-51.0); %Monocytes 8.2 % (0.0-10.0); Hematocrit 42.3 % (42.0-52.0); Mean Corpuscular HGB CONC 30.7 g/dL (32.0-36.0); Mean Corpuscular Hemoglobin 29.5 pg (27.0-31.0); Mean Corpuscular Volume 95.9 fL (78.0-98.0); Mean Platelet Volume 11.6 fL (7.4-10.4); Platelet Count 168 10x3/uL (130-400); RBC Distribution Width 14.6 % (11.5-14.5); Red Blood Cell (RBC) Count 4.41 mill/uL (4.70-6.10)
== END 2024-05-22 13:09 | disposition home or self-care (01) | DRG 313 ==
LOC: ERS 22:14 → 2SE 05-20 00:40 → OBSVTOIN 05-21 10:48 → T4-A 05-21 19:36
PROVIDERS: ADMIT Internal Medicine; ATTEND Internal Medicine
DX: R07.89 Other chest pain (principal); Z68.43 Body mass index [BMI] 50.0-59.9, adult; I50.32 Chronic diastolic (congestive) heart failure; E78.5 Hyperlipidemia, unspecified; I25.10 Atherosclerotic heart disease of native coronary artery without angina pectoris; J44.9 Chronic obstructive pulmonary disease, unspecified; K21.9 Gastro-esophageal reflux disease without esophagitis; E66.01 Morbid (severe) obesity due to excess calories; F41.9 Anxiety disorder, unspecified; F32.A Depression, unspecified; Z95.5 Presence of coronary angioplasty implant and graft; Z98.890 Other specified postprocedural states; Z79.899 Other long term (current) drug therapy; Z79.01 Long term (current) use of anticoagulants; Z79.84 Long term (current) use of oral hypoglycemic drugs; Z79.82 Long term (current) use of aspirin; I11.0 Hypertensive heart disease with heart failure; I48.0 Paroxysmal atrial fibrillation
CPT/HCPCS: 36415; 36416; 71045; 71275; 74174; 80048; 80053; 80061; 83036; 83735; 83880; 84443; 84484; 85025; 93005; 93010; 93306; 94640; 96372; 96374; 96375; 96376; G0378; J1650; J1885; J1940; J2270; J3475; J7620; Q9967

== ENCOUNTER 2024-06-05 22:56 | Inpatient (IN) | payer OTHER ==
[2024-06-05] MEDS ORDERED: Nitroglycerin 0.4 MG TAB 1 EACH ONE ×2 (23:43→23:45)
[2024-06-05 23:56] LABS: #Basophils 0.05 10x3/uL (0.0-0.2); %Basophils 0.6 % (0.0-1.0); %Lymphocytes 13.3 % (21.0-51.0); %Monocytes 5.2 % (0.0-10.0); %Neutrophils 77.3 % (42.0-75.0); Hematocrit 40.8 % (42.0-52.0); Hemoglobin 13.1 g/dL (14.0-18.0); Mean Corpuscular HGB CONC 32.1 g/dL (32.0-36.0); Mean Corpuscular Hemoglobin 28.5 pg (27.0-31.0); Mean Corpuscular Volume 88.9 fL (78.0-98.0); Mean Platelet Volume 11.3 fL (7.4-10.4); Platelet Count 251 10x3/uL (130-400); RBC Distribution Width 14.8 % (11.5-14.5); Red Blood Cell (RBC) Count 4.59 mill/uL (4.70-6.10)
[2024-06-06 00:16] LABS: ALT (SGPT) 22 U/L (8-55); AST (SGOT) 15 U/L (5-34); Albumin 3.3 g/dL (3.5-5.0); Alkaline Phosphatase 69 U/L (40-110); Anion Gap 17 mmol/L (10-20); BUN (Urea Nitrogen) 13 mg/dL (8.4-25.7); Bilirubin, Total 0.2 mg/dL (0.2-1.2); Calc. Creatinine Clearance 0 mL/min (70-130); Calcium 9.4 mg/dL (7.8-10.44); Carbon Dioxide 23 mmol/L (22-29); Chloride 101 mmol/L (98-107); Estimated GFR 83; Globulin 3.1 g/dL (2.4-3.5); Glucose 181 mg/dL (70-105); Magnesium 2.1 mg/dL (1.6-2.6); Potassium 4.7 mmol/L (3.5-5.1); Protein, Total 6.4 g/dL (6.0-8.3); Sodium 136 mmol/L (136-145)
[2024-06-06 00:24] LABS: Troponin I Less than 0.010 ng/mL (< 0.028)
[2024-06-06] MEDS ORDERED: methylPREDNISolone Sod Succ/PF 125 MG/2 ML VIAL ONE (00:33)
[2024-06-06] MEDS ORDERED: cefTRIAXone (ROCEPHIN) 2 GM VIAL ONE (00:33)
[2024-06-06] MEDS ORDERED: Sodium Chloride 0.9% 100 ML ONE ×2 (00:34→04:15)
[2024-06-06] MEDS ORDERED: Ipratropium/Albuterol 3 ML NEB ONE (00:45)
[2024-06-06] MEDS ORDERED: Morphine 4 MG/ML VIAL ONE (00:46)
[2024-06-06] MEDS ORDERED: Ondansetron PF 4 MG/2 ML Vial ONE (00:46)
[2024-06-06 01:02] LABS: Actual Bicarbonate (HCO3a) 27.1 mEq/L (22-28); Analyzer IN Cardio ER; Base Excess (BEa) 2.9 mEq/L (-2.0 to +3.0); CO2 Tension 40.2 mmHg (35.0-45.0); Calcium, Ionized (arterial) 1.18 mmol/L (1.12-1.30); Carboxyhemoglobin (COHb) 0.4 gm% (0.0-3.0); Hematocrit-ABG 41 % (42.0-52.0); Potassium - ABG Lab 4.47 mmol/L (3.70-5.30); pH, Arterial 7.447 (7.35-7.45)
[2024-06-06 01:15] LABS: Bacteria/HPF None Seen HPF (None Seen); Bilirubin Negative (Negative); Blood, Urine Negative (Negative); CAUTI Indications for Culture Dysuria,urgency,freq; Clarity Clear (Clear); Glucose, Urine (Dipstick) Normal (Negative); Ketone, Urine Negative (Negative); Leukocyte Negative Leu/uL (Negative); Nitrite Negative (Negative); Protein, Urine (Dipstick) 10 mg/dL (Neg-Trace); RBC/HPF None Seen HPF (0-3); Specific Gravity, Urine 1.025 (1.002-1.036); Squamous Epithelial None Seen HPF (0-3); Urobilinogen Normal mg/dL (Less than 2); WBC/HPF 0-3 HPF (0-3)
[2024-06-06 01:18] LABS: Urine Culture Reflex No No
[2024-06-06 01:51] VITALS: BMI 59.3
[2024-06-06 01:53] LABS: O2 Tension (PaO2), arterial 40.8 mmHg (80.0-100.0); Puncture Site RRA
[2024-06-06] MEDS ORDERED: Ondansetron PF 4 MG/2 ML Vial IVP PRN (02:08)
[2024-06-06] MEDS ORDERED: Acetaminophen 325 MG TAB PO PRN (02:08)
[2024-06-06] MEDS ORDERED: hydrALAZINE 25 MG TAB PO PRN (04:04)
[2024-06-06] MEDS ORDERED: Glucagon 1 MG/ML KIT IM PRN (04:13)
[2024-06-06] MEDS ORDERED: Dextrose 50% Abboject 50 ML SYRINGE SLOW IVP PRN (04:13)
[2024-06-06] MEDS ORDERED: Dextrose 5% in Water 1,000 ML IV PRN (04:13)
[2024-06-06] MEDS ORDERED: Doxycycline 100 MG VIAL ONE (04:15)
[2024-06-06] MEDS: Doxycycline 100 MG in Sodium Chloride 0.9% 100 ML IVPB SCH (04:25)
[2024-06-06] MEDS ORDERED: Morphine 2 MG/ML VIAL ONE (04:32)
[2024-06-06] MEDS: Morphine 4 MG/ML VIAL SLOW IVP SCH (04:37)
[2024-06-06 04:48] LABS: #Basophils 0.03 10x3/uL (0.0-0.2); %Basophils 0.4 % (0.0-1.0); %Lymphocytes 6.3 % (21.0-51.0); %Monocytes 1.5 % (0.0-10.0); %Neutrophils 90.1 % (42.0-75.0); Hematocrit 41.8 % (42.0-52.0); Hemoglobin 13.3 g/dL (14.0-18.0); Mean Corpuscular HGB CONC 31.8 g/dL (32.0-36.0); Mean Corpuscular Hemoglobin 28.5 pg (27.0-31.0); Mean Corpuscular Volume 89.5 fL (78.0-98.0); Mean Platelet Volume 11.5 fL (7.4-10.4); Platelet Count 247 10x3/uL (130-400); RBC Distribution Width 15.1 % (11.5-14.5); Red Blood Cell (RBC) Count 4.67 mill/uL (4.70-6.10)
[2024-06-06 05:09] LABS: Anion Gap 15 mmol/L (10-20); BUN (Urea Nitrogen) 14 mg/dL (8.4-25.7); Calc. Creatinine Clearance 191 mL/min (70-130); Calcium 9.5 mg/dL (7.8-10.44); Carbon Dioxide 22 mmol/L (22-29); Chloride 101 mmol/L (98-107); Estimated GFR 81; Glucose 169 mg/dL (70-105); Potassium 4.8 mmol/L (3.5-5.1); Sodium 133 mmol/L (136-145)
[2024-06-06 05:12] LABS: Troponin I Less than 0.010 ng/mL (< 0.028)
[2024-06-06] MEDS ORDERED: methylPREDNISolone Sod Succ 40 MG VIAL ONE (06:27)
[2024-06-06] MEDS: methylPREDNISolone Sod Succ 40 MG VIAL IVP SCH (06:31)
[2024-06-06] MEDS: Mometasone 100 MCG HFA INHALER (RT USE) INH SCH (06:44)
[2024-06-06] MEDS: Ipratropium/Albuterol 3 ML NEB NEB SCH (06:45)
[2024-06-06] MEDS ORDERED: Amiodarone 200 MG TAB ONE ×2 (08:11→09:08)
[2024-06-06] MEDS ORDERED: Aspirin 81 mg Enteric Coated Tablet ONE ×2 (08:17→09:07)
[2024-06-06] MEDS ORDERED: Apixaban 5 MG TAB ONE ×2 (08:18→09:08)
[2024-06-06] MEDS ORDERED: Clopidogrel Bisulfate 75 MG TAB ONE (08:18)
[2024-06-06] MEDS ORDERED: Sacubitril 49 MG/Valsartan 51 MG TABLET ONE ×2 (08:18→09:07)
[2024-06-06] MEDS ORDERED: Atorvastatin Calcium 40 MG TAB ONE ×2 (08:18→09:07)
[2024-06-06] MEDS ORDERED: Furosemide 40 MG TAB ONE ×2 (08:18→09:07)
[2024-06-06] MEDS: Apixaban 5 MG TAB PO SCH (09:14)
[2024-06-06] MEDS: Amiodarone 200 MG TAB PO SCH (09:14)
[2024-06-06] MEDS: Atorvastatin Calcium 40 MG TAB PO SCH (09:14)
[2024-06-06] MEDS: Furosemide 40 MG TAB PO SCH (09:14)
[2024-06-06] MEDS: Sacubitril 24MG/Valsartan 26 MG TAB PO SCH (09:14)
[2024-06-06] MEDS: Aspirin Chewable 81 MG TAB PO SCH (09:14)
[2024-06-06] MEDS: Clopidogrel Bisulfate 75 MG TAB PO SCH (09:14)
[2024-06-06] MEDS ORDERED: traMADol HCl 50 MG TAB ONE (10:35)
[2024-06-06] MEDS: traMADol HCl 50 MG TAB PO PRN ×2 (10:45→14:42)
[2024-06-06] MEDS ORDERED: traMADol HCl 50 MG TAB PO PRN (10:56)
[2024-06-06 11:30] LABS: Troponin I Less than 0.010 ng/mL (< 0.028)
[2024-06-06 13:26] LABS: Troponin I Less than 0.010 ng/mL (< 0.028)
[2024-06-06] MEDS: Gabapentin 400 MG CAP PO SCH ×2 (15:08→20:29)
[2024-06-06] MEDS: Ketorolac Tromethamine 30 MG (1 mL) VIAL IVP SCH ×2 (15:47→21:40)
[2024-06-06] MEDS: Pantoprazole 40 MG VIAL IVP SCH (15:47)
[2024-06-06] MEDS: Lidocaine 4% Patch TD SCH (15:47)
[2024-06-06 16:44] LABS: Troponin I Less than 0.010 ng/mL (< 0.028)
[2024-06-06] MEDS: Insulin Lispro 100 UNIT/ML 10 ML VIAL SC PRN ×2 (17:13→21:45)
[2024-06-06] MEDS: QUEtiapine 25 MG TAB PO SCH (20:30)
[2024-06-06] MEDS ORDERED: ALPRAZolam 0.5 MG TAB PO PRN (20:45)
[2024-06-06 21:09] LABS: Troponin I Less than 0.010 ng/mL (< 0.028)
[2024-06-06] MEDS: ALPRAZolam 1 MG TAB PO PRN (21:32)
[2024-06-07] MEDS: cefTRIAXone\\ROCEPHIN 1 GM in Sodium Chloride 0.9% 100 ML IVPB SCH (00:52)
[2024-06-07] MEDS: Transdermal Patch Removal TOP SCH ×2 (04:00→21:15)
[2024-06-07 04:20] LABS: #Basophils Less than 0.03 10x3/uL (0.0-0.2); #Eosinphils Less than 0.03 10x3/uL (0.0-0.7); %Basophils 0.1 % (0.0-1.0); %Eosinophils 0.1 % (0.0-10.0); %Lymphocytes 3.3 % (21.0-51.0); %Monocytes 4.1 % (0.0-10.0); %Neutrophils 91.7 % (42.0-75.0); Hematocrit 41.9 % (42.0-52.0); Hemoglobin 12.8 g/dL (14.0-18.0); Mean Corpuscular HGB CONC 30.5 g/dL (32.0-36.0); Mean Corpuscular Hemoglobin 28.9 pg (27.0-31.0); Mean Corpuscular Volume 94.6 fL (78.0-98.0); Mean Platelet Volume 11.6 fL (7.4-10.4); Platelet Count 169 10x3/uL (130-400); Red Blood Cell (RBC) Count 4.43 mill/uL (4.70-6.10)
[2024-06-07 04:37] LABS: Anion Gap 14 mmol/L (10-20); BUN (Urea Nitrogen) 22 mg/dL (8.4-25.7); Calc. Creatinine Clearance 151 mL/min (70-130); Calcium 9.4 mg/dL (7.8-10.44); Carbon Dioxide 20 mmol/L (22-29); Chloride 101 mmol/L (98-107); Estimated GFR 61; Glucose 271 mg/dL (70-105); Potassium 5.3 mmol/L (3.5-5.1); Sodium 130 mmol/L (136-145)
[2024-06-07] MEDS ORDERED: Pantoprazole DR 40 MG TAB PO SCH (07:30)
[2024-06-07] MEDS: Pantoprazole 40 MG VIAL IVP SCH (09:30)
[2024-06-07] MEDS: Lidocaine 4% Patch TD SCH (09:30)
[2024-06-07] MEDS: Sodium Chloride 0.9% 1,000 ML IV SCH (09:51)
[2024-06-07] MEDS: Insulin Glargine 30 UNITS/0.3 ML VIAL SC SCH (09:52)
[2024-06-07] MEDS: Morphine 2 MG/ML VIAL SLOW IVP PRN (11:18)
[2024-06-07] MEDS: Gabapentin 400 MG CAP PO SCH (15:51)
[2024-06-08 04:33] LABS: #Basophils Less than 0.03 10x3/uL (0.0-0.2); #Eosinphils Less than 0.03 10x3/uL (0.0-0.7); %Basophils 0.1 % (0.0-1.0); %Monocytes 2.5 % (0.0-10.0); %Neutrophils 93.1 % (42.0-75.0); Hematocrit 39.7 % (42.0-52.0); Hemoglobin 12.4 g/dL (14.0-18.0); Mean Corpuscular HGB CONC 31.2 g/dL (32.0-36.0); Mean Corpuscular Hemoglobin 28.6 pg (27.0-31.0); Mean Corpuscular Volume 91.7 fL (78.0-98.0); Platelet Count 225 10x3/uL (130-400); RBC Distribution Width 14.8 % (11.5-14.5); Red Blood Cell (RBC) Count 4.33 mill/uL (4.70-6.10)
[2024-06-08 04:54] LABS: Anion Gap 13 mmol/L (10-20); BUN (Urea Nitrogen) 19 mg/dL (8.4-25.7); Calc. Creatinine Clearance 181 mL/min (70-130); Calcium 8.9 mg/dL (7.8-10.44); Carbon Dioxide 27 mmol/L (22-29); Chloride 98 mmol/L (98-107); Estimated GFR 77; Glucose 264 mg/dL (70-105); Potassium 5.4 mmol/L (3.5-5.1); Sodium 133 mmol/L (136-145)
[2024-06-08] MEDS: Insulin Glargine 30 UNITS/0.3 ML VIAL SC SCH (09:01)
[2024-06-08] MEDS: Morphine 4 MG/ML VIAL SLOW IVP PRN (09:02)
[2024-06-09 08:40] LABS: #Basophils Less than 0.03 10x3/uL (0.0-0.2); #Eosinphils Less than 0.03 10x3/uL (0.0-0.7); %Basophils 0.1 % (0.0-1.0); %Eosinophils 0.1 % (0.0-10.0); %Lymphocytes 3.9 % (21.0-51.0); %Monocytes 3.5 % (0.0-10.0); Hemoglobin 13.4 g/dL (14.0-18.0); Mean Corpuscular HGB CONC 31.9 g/dL (32.0-36.0); Mean Corpuscular Hemoglobin 29.3 pg (27.0-31.0); Mean Corpuscular Volume 91.9 fL (78.0-98.0); Mean Platelet Volume 11.2 fL (7.4-10.4); Platelet Count 241 10x3/uL (130-400); RBC Distribution Width 14.9 % (11.5-14.5); Red Blood Cell (RBC) Count 4.57 mill/uL (4.70-6.10)
[2024-06-09] MEDS: Pantoprazole DR 40 MG TAB PO SCH (08:54)
[2024-06-09 09:00] LABS: Anion Gap 14 mmol/L (10-20); BUN (Urea Nitrogen) 25 mg/dL (8.4-25.7); Calc. Creatinine Clearance 182 mL/min (70-130); Calcium 9.1 mg/dL (7.8-10.44); Carbon Dioxide 23 mmol/L (22-29); Chloride 95 mmol/L (98-107); Estimated GFR 78; Glucose 352 mg/dL (70-105); Magnesium 2.5 mg/dL (1.6-2.6); Potassium 5.1 mmol/L (3.5-5.1); Sodium 127 mmol/L (136-145)
[2024-06-09] MEDS: oxyCODONE 5 MG TAB PO PRN (12:47)
[2024-06-09] MEDS: Lidocaine 4% Patch TD SCH (21:48)
[2024-06-10 07:10] LABS: #Basophils 0.03 10x3/uL (0.0-0.2); %Basophils 0.3 % (0.0-1.0); %Eosinophils 0.7 % (0.0-10.0); %Lymphocytes 16.1 % (21.0-51.0); %Monocytes 7.3 % (0.0-10.0); %Neutrophils 73.8 % (42.0-75.0); Hematocrit 45.4 % (42.0-52.0); Hemoglobin 14.4 g/dL (14.0-18.0); Mean Corpuscular HGB CONC 31.7 g/dL (32.0-36.0); Mean Corpuscular Hemoglobin 28.5 pg (27.0-31.0); Mean Corpuscular Volume 89.7 fL (78.0-98.0); Mean Platelet Volume 11.6 fL (7.4-10.4); Platelet Count 240 10x3/uL (130-400); RBC Distribution Width 15.1 % (11.5-14.5); Red Blood Cell (RBC) Count 5.06 mill/uL (4.70-6.10)
[2024-06-10 07:17] VITALS: BP 120/78; TEMP 97.9
[2024-06-10 08:00] LABS: Anion Gap 14 mmol/L (10-20); BUN (Urea Nitrogen) 29 mg/dL (8.4-25.7); Calc. Creatinine Clearance 194 mL/min (70-130); Calcium 8.7 mg/dL (7.8-10.44); Carbon Dioxide 25 mmol/L (22-29); Chloride 99 mmol/L (98-107); Estimated GFR 84; Glucose 178 mg/dL (70-105); Magnesium 2.4 mg/dL (1.6-2.6); Potassium 4.5 mmol/L (3.5-5.1); Sodium 133 mmol/L (136-145)
[2024-06-10] MEDS: Insulin Glargine 30 UNITS/0.3 ML VIAL SC SCH (08:14)
[2024-06-10] MEDS: predniSONE 50 MG TAB PO SCH (08:14)
[2024-06-10] MEDS: Transdermal Patch Removal TOP SCH (08:21)
[2024-06-10] MEDS ORDERED: Insulin Glargine 30 UNITS/0.3 ML VIAL SC SCH (09:00)
== END 2024-06-10 11:53 | disposition home or self-care (01) | DRG 189 ==
LOC: ERS 22:56 → ERHOLD 06-06 01:11 → IMCU/EMU 06-06 14:36 → T4-A 06-08 06:38
PROVIDERS: ADMIT Internal Medicine; ATTEND Family Medicine
DX: J96.21 Acute and chronic respiratory failure with hypoxia (principal); J44.1 Chronic obstructive pulmonary disease with (acute) exacerbation; I25.10 Atherosclerotic heart disease of native coronary artery without angina pectoris; I25.2 Old myocardial infarction; I10 Essential (primary) hypertension; E78.5 Hyperlipidemia, unspecified; G89.29 Other chronic pain; M54.9 Dorsalgia, unspecified; F41.9 Anxiety disorder, unspecified; F32.A Depression, unspecified; E66.01 Morbid (severe) obesity due to excess calories; Z79.899 Other long term (current) drug therapy; Z79.84 Long term (current) use of oral hypoglycemic drugs; Z79.82 Long term (current) use of aspirin; Z79.02 Long term (current) use of antithrombotics/antiplatelets; G47.33 Obstructive sleep apnea (adult) (pediatric)
CPT/HCPCS: 36415; 36416; 36600; 71045; 80048; 80053; 81001; 82805; 83605; 83735; 83880; 84484; 85025; 87040; 87086; 93005; 94660; 96374; 96375; J0696; J1815; J1885; J2272; J2405; J2470; J2919; J2930; J7030; J7512; J7620

== ENCOUNTER 2024-09-06 17:23 | Inpatient (IN) | payer OTHER, MEDICAID ==
[2024-09-06 18:22] LABS: #Basophils 0.06 10x3/uL (0.0-0.2); %Basophils 0.7 % (0.0-1.0); %Eosinophils 2.4 % (0.0-10.0); %Lymphocytes 14.6 % (21.0-51.0); %Monocytes 6.7 % (0.0-10.0); %Neutrophils 74.8 % (42.0-75.0); Hematocrit 43.9 % (42.0-52.0); Hemoglobin 13.8 g/dL (14.0-18.0); Mean Corpuscular HGB CONC 31.4 g/dL (32.0-36.0); Mean Corpuscular Hemoglobin 29.1 pg (27.0-31.0); Mean Corpuscular Volume 92.4 fL (78.0-98.0); Mean Platelet Volume 10.8 fL (7.4-10.4); Platelet Count 287 10x3/uL (130-400); RBC Distribution Width 15.7 % (11.5-14.5); Red Blood Cell (RBC) Count 4.75 mill/uL (4.70-6.10)
[2024-09-06 18:36] LABS: ALT (SGPT) 26 U/L (8-55); AST (SGOT) 25 U/L (5-34); Albumin 3.6 g/dL (3.5-5.0); Alkaline Phosphatase 51 U/L (40-110); Anion Gap 18 mmol/L (10-20); BUN (Urea Nitrogen) 16 mg/dL (8.4-25.7); Bilirubin, Total 0.3 mg/dL (0.2-1.2); Calc. Creatinine Clearance 0 mL/min (70-130); Calcium 9.3 mg/dL (7.8-10.44); Carbon Dioxide 21 mmol/L (22-29); Chloride 103 mmol/L (98-107); Estimated GFR 75; Globulin 2.9 g/dL (2.4-3.5); Glucose 114 mg/dL (70-105); Potassium 4.5 mmol/L (3.5-5.1); Protein, Total 6.5 g/dL (6.0-8.3); Sodium 137 mmol/L (136-145)
[2024-09-06 18:42] LABS: Troponin I Less than 0.010 ng/mL (< 0.028)
[2024-09-06] MEDS ORDERED: Nitroglycerin 0.4 MG TAB 1 EACH ONE (20:33)
[2024-09-06] MEDS ORDERED: Acetaminophen 325 MG TAB PO PRN (20:43)
[2024-09-06] MEDS ORDERED: Nitroglycerin 0.4 MG TAB (25 Tab Bottle) SL PRN (20:43)
[2024-09-06] MEDS ORDERED: Acetaminophen 650 MG Suppository PR PRN (20:43)
[2024-09-06] MEDS ORDERED: Ipratropium/Albuterol 3 ML NEB NEB PRN (20:55)
[2024-09-06] MEDS ORDERED: hydrALAZINE 25 MG TAB PO PRN (20:55)
[2024-09-06] MEDS ORDERED: traMADol HCl 50 MG TAB PO PRN (20:55)
[2024-09-06] MEDS ORDERED: Albuterol 200 PUFF (6.7GM INHALER) INH PRN (20:55)
[2024-09-06] MEDS ORDERED: diphenhydrAMINE 25 MG CAP PO PRN (21:45)
[2024-09-07 01:11] LABS: Troponin I Less than 0.010 ng/mL (< 0.028)
[2024-09-07] MEDS ORDERED: Apixaban 5 MG TAB ONE ×2 (01:28→08:39)
[2024-09-07] MEDS ORDERED: Pantoprazole 40 MG VIAL ONE (01:29)
[2024-09-07] MEDS: Apixaban 5 MG TAB PO SCH (01:33)
[2024-09-07] MEDS: Pantoprazole 40 MG VIAL IVP SCH (01:34)
[2024-09-07] MEDS ORDERED: Ipratropium/Albuterol 3 ML NEB ONE ×2 (01:37→13:33)
[2024-09-07] MEDS: Ipratropium/Albuterol 3 ML NEB NEB SCH (01:41)
[2024-09-07] MEDS: Sacubitril 24MG/Valsartan 26 MG TAB PO SCH (02:40)
[2024-09-07] MEDS: ALPRAZolam 1 MG TAB PO PRN (02:47)
[2024-09-07 05:28] LABS: #Basophils 0.04 10x3/uL (0.0-0.2); %Basophils 0.5 % (0.0-1.0); %Eosinophils 2.2 % (0.0-10.0); %Lymphocytes 16.8 % (21.0-51.0); %Monocytes 6.7 % (0.0-10.0); %Neutrophils 72.8 % (42.0-75.0); Hematocrit 40.7 % (42.0-52.0); Mean Corpuscular HGB CONC 31.9 g/dL (32.0-36.0); Mean Corpuscular Volume 90.6 fL (78.0-98.0); Mean Platelet Volume 11.1 fL (7.4-10.4); Platelet Count 265 10x3/uL (130-400); RBC Distribution Width 15.7 % (11.5-14.5); Red Blood Cell (RBC) Count 4.49 mill/uL (4.70-6.10)
[2024-09-07 05:44] LABS: Anion Gap 13 mmol/L (10-20); BUN (Urea Nitrogen) 16 mg/dL (8.4-25.7); Calc. Creatinine Clearance 0 mL/min (70-130); Calcium 9.2 mg/dL (7.8-10.44); Carbon Dioxide 25 mmol/L (22-29); Chloride 103 mmol/L (98-107); Estimated GFR 87; Glucose 106 mg/dL (70-105); Potassium 4.1 mmol/L (3.5-5.1); Sodium 137 mmol/L (136-145)
[2024-09-07 05:49] LABS: Troponin I 0.018 ng/mL (< 0.028)
[2024-09-07] MEDS ORDERED: Morphine 2 MG/ML VIAL SLOW IVP PRN (07:53)
[2024-09-07] MEDS: Mometasone 100 MCG HFA INHALER (RT USE) INH SCH (08:21)
[2024-09-07] MEDS ORDERED: Clopidogrel Bisulfate 75 MG TAB ONE (08:37)
[2024-09-07] MEDS ORDERED: Aspirin Chewable 81 MG TAB ONE (08:38)
[2024-09-07] MEDS ORDERED: Gabapentin 400 MG CAP ONE (08:38)
[2024-09-07] MEDS ORDERED: Atorvastatin Calcium 40 MG TAB ONE (08:38)
[2024-09-07] MEDS ORDERED: Furosemide 40 MG TAB ONE (08:38)
[2024-09-07] MEDS ORDERED: Pantoprazole DR 40 MG TAB ONE (08:38)
[2024-09-07] MEDS ORDERED: HYDROcodone/Acetaminophen 5/325 mg Tablet ONE (08:39)
[2024-09-07] MEDS ORDERED: Amiodarone 200 MG TAB ONE (08:39)
[2024-09-07] MEDS: Clopidogrel Bisulfate 75 MG TAB PO SCH (09:00)
[2024-09-07] MEDS ORDERED: Aspirin Chewable 81 MG TAB PO SCH (09:00)
[2024-09-07] MEDS: Pantoprazole DR 40 MG TAB PO SCH (09:00)
[2024-09-07] MEDS: Aspirin Chewable 81 MG TAB PO SCH (09:00)
[2024-09-07] MEDS: Amiodarone 200 MG TAB PO SCH (09:00)
[2024-09-07] MEDS: Furosemide 40 MG TAB PO SCH (09:00)
[2024-09-07] MEDS ORDERED: Clopidogrel Bisulfate 75 MG TAB PO SCH (09:00)
[2024-09-07] MEDS: HYDROcodone/Acetaminophen 5/325 mg Tablet PO PRN (09:01)
[2024-09-07] MEDS: Gabapentin 400 MG CAP PO SCH (09:01)
[2024-09-07] MEDS: Atorvastatin Calcium 40 MG TAB PO SCH (09:01)
[2024-09-07] MEDS: Isosorbide Mononitrate 30 MG ER.TAB PO SCH (11:24)
[2024-09-07] MEDS ORDERED: Morphine 2 MG/ML VIAL ONE (11:26)
[2024-09-07] MEDS ORDERED: Sacubitril 49 MG/Valsartan 51 MG TABLET ONE (11:26)
[2024-09-07] MEDS: Morphine 4 MG/ML VIAL SLOW IVP PRN (11:32)
[2024-09-07] MEDS ORDERED: FLU (Fluarix Triv) TS24-25(6MOS UP)/PF 45 MCG/0.5 ML Syringe IM ONE (15:00)
[2024-09-07 16:21] VITALS: BMI 60.7
[2024-09-07] MEDS: methylPREDNISolone Sod Succ 40 MG VIAL IVP SCH (20:15)
[2024-09-08 05:41] LABS: #Basophils Less than 0.03 10x3/uL (0.0-0.2); #Eosinophils Less than 0.03 10x3/uL (0.0-0.7); %Basophils 0.1 % (0.0-1.0); %Eosinophils 0.1 % (0.0-10.0); %Lymphocytes 5.7 % (21.0-51.0); %Monocytes 2.1 % (0.0-10.0); %Neutrophils 91.3 % (42.0-75.0); Hematocrit 41.2 % (42.0-52.0); Hemoglobin 13.1 g/dL (14.0-18.0); Mean Corpuscular HGB CONC 31.8 g/dL (32.0-36.0); Mean Corpuscular Hemoglobin 28.8 pg (27.0-31.0); Mean Corpuscular Volume 90.5 fL (78.0-98.0); Platelet Count 275 10x3/uL (130-400); RBC Distribution Width 15.6 % (11.5-14.5); Red Blood Cell (RBC) Count 4.55 mill/uL (4.70-6.10)
[2024-09-08 05:54] LABS: Anion Gap 13 mmol/L (10-20); BUN (Urea Nitrogen) 12 mg/dL (8.4-25.7); Calc. Creatinine Clearance 186 mL/min (70-130); Carbon Dioxide 23 mmol/L (22-29); Chloride 102 mmol/L (98-107); Estimated GFR 77; Glucose 185 mg/dL (70-105); Potassium 5.1 mmol/L (3.5-5.1); Sodium 133 mmol/L (136-145)
[2024-09-08] MEDS ORDERED: Dextrose 5% in Water 1,000 ML IV PRN ×2 (17:31→20:40)
[2024-09-08] MEDS ORDERED: Dextrose 50% Abboject 50 ML SYRINGE SLOW IVP PRN ×2 (17:31→20:40)
[2024-09-08] MEDS ORDERED: Glucagon 1 MG/ML KIT IM PRN ×2 (17:31→20:40)
[2024-09-08] MEDS: Insulin Lispro 100 UNIT/ML 10 ML VIAL SC PRN ×2 (18:17→21:45)
[2024-09-09 07:20] LABS: #Basophils Less than 0.03 10x3/uL (0.0-0.2); #Eosinophils Less than 0.03 10x3/uL (0.0-0.7); %Basophils 0.2 % (0.0-1.0); %Eosinophils 0.2 % (0.0-10.0); %Lymphocytes 11.1 % (21.0-51.0); %Monocytes 6.6 % (0.0-10.0); %Neutrophils 81.3 % (42.0-75.0); Hemoglobin 12.6 g/dL (14.0-18.0); Mean Corpuscular HGB CONC 30.7 g/dL (32.0-36.0); Mean Corpuscular Hemoglobin 28.8 pg (27.0-31.0); Mean Corpuscular Volume 93.8 fL (78.0-98.0); Platelet Count 247 10x3/uL (130-400); RBC Distribution Width 15.6 % (11.5-14.5); Red Blood Cell (RBC) Count 4.37 mill/uL (4.70-6.10)
[2024-09-09 07:55] LABS: Anion Gap 12 mmol/L (10-20); BUN (Urea Nitrogen) 16 mg/dL (8.4-25.7); Calc. Creatinine Clearance 190 mL/min (70-130); Calcium 8.6 mg/dL (7.8-10.44); Carbon Dioxide 25 mmol/L (22-29); Chloride 100 mmol/L (98-107); Estimated GFR 79; Glucose 160 mg/dL (70-105); Potassium 4.3 mmol/L (3.5-5.1); Sodium 133 mmol/L (136-145)
[2024-09-09] MEDS: Lidocaine 4% Patch TD SCH (08:05)
[2024-09-09] MEDS: methylPREDNISolone Sod Succ 40 MG VIAL IVP SCH (08:10)
[2024-09-09 08:27] VITALS: TEMP 97.4
[2024-09-09 12:19] VITALS: BP 104/61
[2024-09-09] MEDS ORDERED: FLU (Fluarix Triv) TS24-25(6MOS UP)/PF 45 MCG/0.5 ML Syringe IM ONE (13:30)
[2024-09-09] MEDS: FLU (Fluad Triv) TS24-25 (65UP)/MF59C/PF 45 MCG/0.5 ML Syringe ONE (16:21)
[2024-09-09] MEDS ORDERED: Transdermal Patch Removal TOP SCH (21:00)
== END 2024-09-09 16:38 | disposition home or self-care (01) | DRG 190 ==
LOC: ERS 17:23 → SUATTDRO 17:23 → ERHOLD 20:48 → OBSVTOIN 09-07 16:07 → OBS 09-07 16:15
PROVIDERS: ADMIT Family Medicine; ATTEND Student in an Organized Health Care Education/Training Program
PROC: 5A09357 Assistance with Respiratory Ventilation, Less than 24 Consecutive Hours, Continuous Positive Airway Pressure (ICD-10-PCS; principal; 2024-09-07)
DX: J44.1 Chronic obstructive pulmonary disease with (acute) exacerbation (principal); J96.21 Acute and chronic respiratory failure with hypoxia; Z68.44 Body mass index [BMI] 60.0-69.9, adult; I48.0 Paroxysmal atrial fibrillation; J44.9 Chronic obstructive pulmonary disease, unspecified; K21.9 Gastro-esophageal reflux disease without esophagitis; Z96.651 Presence of right artificial knee joint; F43.10 Post-traumatic stress disorder, unspecified; Z99.81 Dependence on supplemental oxygen; Z95.5 Presence of coronary angioplasty implant and graft; I25.2 Old myocardial infarction; F41.9 Anxiety disorder, unspecified; E66.01 Morbid (severe) obesity due to excess calories; M94.0 Chondrocostal junction syndrome [Tietze]; I11.0 Hypertensive heart disease with heart failure; I50.9 Heart failure, unspecified
CPT/HCPCS: 36415; 36416; 71045; 80048; 80053; 83880; 84484; 85025; 85379; 87428; 90653; 93005; 94640; 94660; 94760; G0378; J1815; J2272; J2470; J2919; J7620

== ENCOUNTER 2024-10-26 16:00 | Inpatient (IN) | payer OTHER, MEDICAID ==
[2024-10-26 16:08] VITALS: BMI 60.1
[2024-10-30] MEDS ORDERED: Bupivacaine 0.25% HCL 30 ML VIAL ONE (06:40)
[2024-10-30] MEDS ORDERED: EPINEPHrine 1 MG/ML VIAL ONE (06:40)
[2024-10-30] MEDS ORDERED: Lidocaine 1% MPF 2 ML VIAL ONE (06:44)
[2024-10-30] MEDS ORDERED: Heparin 5,000 UNITS/ML VIAL ONE (06:44)
[2024-10-30] MEDS ORDERED: CEFAZOLIN 2 GM VIAL ONE (06:44)
[2024-10-30] MEDS ORDERED: Propofol 500 MG/50 ML VIAL ONE (06:49)
[2024-10-30] MEDS ORDERED: PROPOFOL 0 ML ONE (06:56)
[2024-10-30] MEDS ORDERED: fentaNYL PF 100 MCG/2 ML SYRINGE ONE ×3 (06:56→11:01)
[2024-10-30] MEDS ORDERED: Lidocaine 1% PF 5 ML VIAL ONE (06:57)
[2024-10-30] MEDS ORDERED: Rocuronium Bromide 10 MG/ML (10ML VIAL) ONE (06:57)
[2024-10-30] MEDS ORDERED: Etomidate 40 MG (20 mL) VIAL ONE (07:10)
[2024-10-30] MEDS ORDERED: KETAMINE 100 MG/ML (5ML VIAL) ONE (07:32)
[2024-10-30] MEDS ORDERED: Midazolam HCl 2 mg/2 ml Vial ONE (07:35)
[2024-10-30] MEDS ORDERED: SUGAMMADEX SODIUM 200 MG/2 ML VIAL ONE (07:54)
[2024-10-30] MEDS ORDERED: Dexamethasone 20 MG/5 ML VIAL ONE (08:18)
[2024-10-30] MEDS ORDERED: Labetalol HCl 100 MG/20 ML VIAL ONE (08:35)
[2024-10-30] MEDS ORDERED: Albuterol HFA (OR) 200 PUFF INH ONE (08:35)
[2024-10-30] MEDS ORDERED: Ondansetron PF 4 MG/2 ML Vial ONE (09:20)
[2024-10-30] MEDS ORDERED: PROPOFOL 20 ML ONE (09:29)
[2024-10-30] MEDS ORDERED: Ipratropium/Albuterol 3 ML NEB ONE (09:56)
[2024-10-30] MEDS ORDERED: HYDROmorphone 0.5 MG/0.5 ML SYRINGE ONE ×3 (10:02→14:07)
[2024-10-30] MEDS ORDERED: Ondansetron PF 4 MG/2 ML Vial IVP PRN (10:50)
[2024-10-30] MEDS ORDERED: diphenhydrAMINE 50 MG/ML VIAL IVP PRN (10:50)
[2024-10-30] MEDS ORDERED: hydrALAZINE 20 MG/ML VIAL SLOW IVP PRN (10:50)
[2024-10-30] MEDS ORDERED: Glucagon 1 MG/ML KIT IM PRN (10:50)
[2024-10-30] MEDS ORDERED: oxyCODONE 5 MG TAB PO PRN (10:50)
[2024-10-30] MEDS ORDERED: Naloxone HCl 0.4 mg/ml Vial IVP PRN (10:50)
[2024-10-30] MEDS ORDERED: Ipratropium/Albuterol 3 ML NEB NEB PRN (10:50)
[2024-10-30] MEDS ORDERED: Albuterol 200 PUFF INH INH PRN (10:50)
[2024-10-30] MEDS ORDERED: Dextrose 50% Abboject 50 ML SYRINGE SLOW IVP PRN (10:50)
[2024-10-30] MEDS ORDERED: Dextrose 5% in Water 1,000 ML IV PRN (10:50)
[2024-10-30] MEDS ORDERED: Promethazine HCl 25 MG/ML VIAL IM PRN (10:50)
[2024-10-30] MEDS ORDERED: Insulin Lispro 100 UNIT/ML 10 ML VIAL SC PRN (10:50)
[2024-10-30] MEDS ORDERED: traMADol HCl 50 MG TAB PO PRN (10:50)
[2024-10-30] MEDS ORDERED: fentaNYL 50 mcg/mL 1 mL Vial ONE (14:06)
[2024-10-30] MEDS: Ipratropium/Albuterol 3 ML NEB NEB SCH (14:45)
[2024-10-30] MEDS: Acetaminophen 650 MG/20.3 ML UDCUP PO SCH (16:57)
[2024-10-30] MEDS: Sodium Chloride 0.9% 1,000 ML IV SCH (16:58)
[2024-10-30] MEDS: hydrALAZINE 25 MG TAB PO SCH (16:58)
[2024-10-30] MEDS: Gabapentin 400 MG CAP PO SCH (16:58)
[2024-10-30] MEDS: Morphine 4 MG/ML VIAL SLOW IVP PRN (19:26)
[2024-10-30] MEDS: Mometasone 100 MCG HFA INHALER (RT USE) INH SCH (19:59)
[2024-10-30] MEDS: ALPRAZolam 1 MG TAB PO PRN (20:21)
[2024-10-30] MEDS: Sacubitril 24MG/Valsartan 26 MG TAB PO SCH (20:22)
[2024-10-31 00:02] VITALS: TEMP 98.3
[2024-10-31 03:24] LABS: #Basophils Less than 0.03 10x3/uL (0.0-0.2); #Eosinophils Less than 0.03 10x3/uL (0.0-0.7); %Lymphocytes 7.3 % (21.0-51.0); %Monocytes 5.8 % (0.0-10.0); %Neutrophils 86.4 % (42.0-75.0); Hematocrit 40.4 % (42.0-52.0); Hemoglobin 12.1 g/dL (14.0-18.0); Mean Corpuscular Hemoglobin 29.1 pg (27.0-31.0); Mean Corpuscular Volume 97.1 fL (78.0-98.0); Mean Platelet Volume 11.3 fL (7.4-10.4); Platelet Count 210 10x3/uL (130-400); RBC Distribution Width 17.2 % (11.5-14.5); Red Blood Cell (RBC) Count 4.16 mill/uL (4.70-6.10)
[2024-10-31 03:47] LABS: Anion Gap 15 mmol/L (10-20); BUN (Urea Nitrogen) 8 mg/dL (8.4-25.7); Calc. Creatinine Clearance 204 mL/min (70-130); Calcium 8.2 mg/dL (7.8-10.44); Carbon Dioxide 20 mmol/L (22-29); Chloride 104 mmol/L (98-107); Estimated GFR 87; Glucose 128 mg/dL (70-105); Potassium 4.4 mmol/L (3.5-5.1); Sodium 135 mmol/L (136-145)
[2024-10-31] MEDS: Pantoprazole 40 MG VIAL IVP SCH (09:17)
[2024-10-31] MEDS: Amiodarone 200 MG TAB PO SCH (09:17)
[2024-10-31] MEDS: Enoxaparin 40 MG (0.4 mL) SYRINGE SC SCH (09:17)
[2024-10-31 11:58] VITALS: BP 145/85
[2024-11-01] MEDS ORDERED: FLU (Fluarix Triv) TS24-25(6MOS UP)/PF 45 MCG/0.5 ML Syringe IM ONE (09:00)
== END 2024-10-31 13:35 | disposition home or self-care (01) | DRG 621 ==
LOC: SURG A 10-30 05:43 → IMCU/EMU 10-30 16:15
PROVIDERS: ADMIT Surgery; ATTEND Surgery
PROC: 0DB64Z3 Excision of Stomach, Percutaneous Endoscopic Approach, Vertical (ICD-10-PCS; principal; 2024-10-30)
DX: E66.01 Morbid (severe) obesity due to excess calories (principal); Z68.44 Body mass index [BMI] 60.0-69.9, adult; G47.30 Sleep apnea, unspecified; E11.59 Type 2 diabetes mellitus with other circulatory complications; I48.91 Unspecified atrial fibrillation; J44.9 Chronic obstructive pulmonary disease, unspecified; I50.9 Heart failure, unspecified; I11.0 Hypertensive heart disease with heart failure; Z79.899 Other long term (current) drug therapy; Z79.84 Long term (current) use of oral hypoglycemic drugs; Z98.890 Other specified postprocedural states; I25.10 Atherosclerotic heart disease of native coronary artery without angina pectoris
CPT/HCPCS: 36415; 36416; 80048; 85025; 88307; 94640; 94660; 94760; J0171; J0665; J1100; J1171; J1644; J1650; J2250; J2272; J2405; J2470; J2704; J3010; J7620; S2900

== ENCOUNTER 2025-06-21 19:13 | Emergency (ER) | payer OTHER, MEDICAID | END 2025-06-21 21:20 | disposition home or self-care (01) | LOC: ERS 19:13 | DX: K08.89 Other specified disorders of teeth and supporting structures (principal); K02.9 Dental caries, unspecified; I25.2 Old myocardial infarction; J44.9 Chronic obstructive pulmonary disease, unspecified; K21.9 Gastro-esophageal reflux disease without esophagitis; I11.0 Hypertensive heart disease with heart failure; I50.9 Heart failure, unspecified; I48.91 Unspecified atrial fibrillation; Z95.5 Presence of coronary angioplasty implant and graft; Z87.891 Personal history of nicotine dependence; Z79.01 Long term (current) use of anticoagulants; Z79.51 Long term (current) use of inhaled steroids; Z79.899 Other long term (current) drug therapy | CPT/HCPCS: 99282 ==

== ENCOUNTER 2025-07-10 19:58 | Emergency (ER) | payer OTHER, MEDICAID ==
[2025-07-10 21:29] LABS: #Basophils 0.06 10x3/uL (0.0-0.2); #Eosinophils 0.15 10x3/uL (0.0-0.7); #Monocytes 0.98 10x3/uL (0.11-0.59); #Neutrophils 8.60 10x3/uL (1.40-6.50); %Basophils 0.5 % (0.0-1.0); %Eosinophils 1.3 % (0.0-10.0); %Lymphocytes 14.9 % (21.0-51.0); %Monocytes 8.5 % (0.0-10.0); %Neutrophils 74.5 % (42.0-75.0); Hematocrit 45.6 % (42.0-52.0); Hemoglobin 13.8 g/dL (14.0-18.0); Mean Corpuscular Hemoglobin 26.3 pg (27.0-31.0); Mean Corpuscular Volume 87.0 fL (78.0-98.0); Platelet Count 238 10x3/uL (130-400); Red Blood Cell (RBC) Count 5.24 mill/uL (4.70-6.10); White Blood Cell (WBC) Count 11.55 10x3/uL (4.8-10.8)
[2025-07-10 21:50] LABS: ALT (SGPT) 42 U/L (Less than 45); AST (SGOT) 41 U/L (11-34); Albumin 4.1 g/dL (3.1-4.5); Alkaline Phosphatase 88 U/L (40-110); Anion Gap 20 mmol/L (10-20); BUN (Urea Nitrogen) 21 mg/dL (8.4-25.7); Bilirubin, Total 0.2 mg/dL (0.3-1.2); Calc. Creatinine Clearance 0 mL/min (70-130); Calcium 9.3 mg/dL (7.8-10.44); Carbon Dioxide 22 mmol/L (22-29); Chloride 104 mmol/L (98-107); Globulin 2.7 g/dL (2.4-3.5); Glucose 103 mg/dL (70-105); Potassium 4.7 mmol/L (3.5-5.1); Sodium 141 mmol/L (136-145)
[2025-07-10] MEDS ORDERED: predniSONE 20 MG TAB ONE (22:11)
[2025-07-10 22:42] LABS: Bacteria/HPF None Seen HPF (None Seen); CAUTI Indications for Culture Dysuria,urgency,freq; Glucose, Urine (Dipstick) Greater than 1000 mg/dL (Negative); Leukocyte Negative Leu/uL (Negative); Protein, Urine (Dipstick) Negative (Neg-Trace); RBC/HPF 0-3 HPF (0-3); Specific Gravity, Urine 1.041 (1.002-1.036); WBC/HPF 0-3 HPF (0-3)
[2025-07-10 22:48] LABS: Urine Culture Reflex No No
== END 2025-07-11 01:53 | disposition home or self-care (01) ==
LOC: ERS 19:58
DX: J44.1 Chronic obstructive pulmonary disease with (acute) exacerbation (principal); I25.2 Old myocardial infarction; I48.91 Unspecified atrial fibrillation; I11.0 Hypertensive heart disease with heart failure; I50.9 Heart failure, unspecified; K21.9 Gastro-esophageal reflux disease without esophagitis; E11.9 Type 2 diabetes mellitus without complications; Z79.01 Long term (current) use of anticoagulants; Z79.899 Other long term (current) drug therapy; Z87.891 Personal history of nicotine dependence
CPT/HCPCS: 71045; 81001; 83880; 84484; 85025; 93005; J7512; J7620

== ENCOUNTER 2025-10-25 01:20 | Emergency (ER) | payer OTHER, MEDICAID ==
[2025-10-25] MEDS ORDERED: Acetaminophen 500 MG TAB ONE ×2 (01:44→04:19)
[2025-10-25 02:14] LABS: #Basophils 0.05 10x3/uL (0.0-0.2); #Eosinophils 0.20 10x3/uL (0.0-0.7); #Monocytes 0.92 10x3/uL (0.11-0.59); #Neutrophils 5.97 10x3/uL (1.40-6.50); %Basophils 0.6 % (0.0-1.0); %Eosinophils 2.3 % (0.0-10.0); %Lymphocytes 18.3 % (21.0-51.0); %Monocytes 10.5 % (0.0-10.0); %Neutrophils 67.8 % (42.0-75.0); Hematocrit 39.4 % (42.0-52.0); Hemoglobin 12.2 g/dL (14.0-18.0); Mean Corpuscular Hemoglobin 27.7 pg (27.0-31.0); Mean Corpuscular Volume 89.3 fL (78.0-98.0); Platelet Count 207 10x3/uL (130-400); Red Blood Cell (RBC) Count 4.41 mill/uL (4.70-6.10); White Blood Cell (WBC) Count 8.79 10x3/uL (4.8-10.8)
[2025-10-25 02:29] LABS: CRP, High Sensitivity at Bryan 0.30 mg/dL (< or = 0.5); Magnesium 2.2 mg/dL (1.6-2.6)
[2025-10-25 02:31] LABS: ALT (SGPT) 32 U/L (Less than 45); AST (SGOT) 29 U/L (11-34); Albumin 3.9 g/dL (3.1-4.5); Alkaline Phosphatase 67 U/L (40-110); Anion Gap 15 mmol/L (10-20); BUN (Urea Nitrogen) 21 mg/dL (8.4-25.7); Bilirubin, Total 0.3 mg/dL (0.3-1.2); Calc. Creatinine Clearance 0 mL/min (70-130); Calcium 9.0 mg/dL (7.8-10.44); Carbon Dioxide 24 mmol/L (22-29); Chloride 105 mmol/L (98-107); Globulin 2.1 g/dL (2.4-3.5); Glucose 131 mg/dL (70-105); Potassium 4.0 mmol/L (3.5-5.1); Sodium 140 mmol/L (136-145)
[2025-10-25 02:55] LABS: INR-International Normal Ratio 1.1; Prothrombin Time 14.0 sec (12.0-14.7)
[2025-10-25 02:56] LABS: PTT 55.3 sec (22.9-36.1)
[2025-10-25] MEDS ORDERED: Amoxicillin/Potassium Clav 875 MG TAB ONE (04:10)
[2025-10-25] MEDS ORDERED: Iopamidol 370 76% 100 ML VIAL ONE (13:18)
== END 2025-10-25 04:30 | disposition home or self-care (01) ==
LOC: ERS 01:20
DX: K04.7 Periapical abscess without sinus (principal); K02.9 Dental caries, unspecified; I48.91 Unspecified atrial fibrillation; I11.0 Hypertensive heart disease with heart failure; I50.9 Heart failure, unspecified; K21.9 Gastro-esophageal reflux disease without esophagitis; J44.9 Chronic obstructive pulmonary disease, unspecified; Z75.3 Unavailability and inaccessibility of health-care facilities; Z79.01 Long term (current) use of anticoagulants; Z79.51 Long term (current) use of inhaled steroids; Z79.899 Other long term (current) drug therapy
CPT/HCPCS: 70491; 71275; 80053; 83735; 83880; 84484; 85025; 85610; 85730; 86141; 96374; 96375; 99285; J2270; Q9967